=== PATIENT | male | born 1955 | race Two or more races ===

== ENCOUNTER 2017-11-20 14:21 | Inpatient (IN) | payer MEDICAID ==
[~2017-11-20] VITALS: Ht 172.7 cm; Wt 59.4 kg
[2017-11-20] MEDS ORDERED: OXYC10 PO (14:33)
[2017-11-20] MEDS ORDERED: LORA2TAB2 PO (14:33)
[2017-11-20] MEDS ORDERED: GABA-533 PO (14:33)
[2017-11-20] MEDS ORDERED: HALO2 PO (14:33)
[2017-11-20] MEDS ORDERED: ONDANSETRON HCL 4 MG/2 ML VIAL IVP PRN (14:45)
[2017-11-20] MEDS ORDERED: DEXTROSE 50%-WATER 25 GM/50 ML SYRINGE IVP PRN ×2 (14:45)
[2017-11-20] MEDS ORDERED: INSULIN ASPART 100 UNITS/ML SQ PRN (14:45)
[2017-11-20] MEDS ORDERED: 0.9% SODIUM CHLORIDE 10 ML SYRINGE IVP PRN (14:45)
[2017-11-20] MEDS ORDERED: ACETAMINOPHEN 325 MG TABLET PO PRN (14:45)
[2017-11-20 15:03] LABS: BASOPHILS % (AUTO) 0.7 % (0.0-2.0); EOSINOPHILS % (AUTO) 0.4 % (1.0-6.0); HEMOGLOBIN 10.8 g/dL (13.5-17.5); LYMPHOCYTES # (AUTO) 1.7 K/uL (1.0-4.8); LYMPHOCYTES % (AUTO) 23.3 % (22.0-44.0); MEAN CORPUSCULAR HEMOGLOBIN 24.4 pg (26.0-34.0); MEAN CORPUSCULAR HGB CONC 31.7 G/dL (31.0-37.0); MEAN CORPUSCULAR VOLUME 77 fL (80-100); MONOCYTES # (AUTO) 0.5 K/uL (0.1-1.0); MONOCYTES % (AUTO) 7.1 % (2.0-9.0); NEUTROPHILS # (AUTO) 5.1 K/uL (1.8-7.7); NEUTROPHILS % (AUTO) 68.5 % (40.0-70.0); PLATELET COUNT (AUTO) 423 K/uL (150-450); RED BLOOD CELL COUNT(AUTO) 4.43 MIL/uL (4.50-5.90); RED CELL DISTRIBUTION WIDTH 17.2 % (11.5-14.5)
[2017-11-20 15:18] LABS: ANION GAP 8 mmol/L (8-16); CALCIUM, TOTAL 8.5 mg/dL (8.8-10.5); CARBON DIOXIDE 29 mmol/L (22-29); CHLORIDE 104 mmol/L (98-107); CREATININE 0.65 mg/dL (0.60-1.30); GLOMERULAR FILTR. RATE CALC > 60 mL/min (>60); GLUCOSE,RANDOM 88 mg/dL (70-110); POTASSIUM 3.9 mmol/L (3.5-5.1); SODIUM SERUM 141 mmol/L (136-145); UREA NITROGEN, BLOOD 12 mg/dL (7-18)
[2017-11-20 15:33] LABS: ALANINE AMINOTRANSFERASE 7 U/L (12-78); ALBUMIN 3.2 g/dL (3.4-5.0); ALKALINE PHOSPHATASE 80 U/L (46-116); ASPARTATE AMINOTRANSFERASE 13 U/L (15-37); BILIRUBIN,TOTAL 0.3 mg/dL (0.1-1.0); THYROID STIMULATING HORMONE 0.24 uIU/mL (0.36-3.74); TOTAL PROTEIN, SERUM 6.5 g/dL (6.4-8.2)
[2017-11-20] MEDS ORDERED: LORazepam 2 MG/ML VIAL IM ONE (16:00)
[2017-11-20] MEDS ORDERED: HALOPERIDOL LACTATE 5 MG/ML VIAL IM ONE (16:00)
[2017-11-20 19:09] LABS: CHOL/HDL RATIO 2.4 (4.2-7.3); CHOLESTEROL 141 mg/dL (131-200); HDL CHOLESTEROL 60 mg/dL (40-60); LDL CHOL (CALC.) 68 mg/dL (0-130); TRIGLYCERIDES 66 mg/dL (15-150)
[2017-11-20 21:41] VITALS: BP 117/72
[2017-11-20] MEDS ORDERED: PNEUMOCOCCAL VACCINE POLYVALENT 0.5 ML VIAL [PPSV23] IM ONE (21:45)
[2017-11-20] MEDS ORDERED: INFLUENZA VIRUS VACCINE QVS 2017-18 (3YR+)/PF 60 MCG/0.5 ML SYRINGE IM ONE (21:45)
[2017-11-20] MEDS: LORazepam 2 MG TABLET PO PRN (22:43)
[2017-11-20] MEDS: HALOPERIDOL 5 MG TABLET PO PRN (22:43)
[2017-11-20] MEDS: ACETAMINOPHEN 325 MG TABLET PO PRN (22:43)
[2017-11-21 06:44] VITALS: BP 113/69
[2017-11-21 09:02] VITALS: BP 116/63
[2017-11-21] MEDS: LORazepam 2 MG TABLET PO PRN ×3 (09:45→20:13)
[2017-11-21] MEDS: HALOPERIDOL 5 MG TABLET PO PRN ×2 (09:46→15:11)
[2017-11-21] MEDS: ACETAMINOPHEN 325 MG TABLET PO PRN (09:46)
[2017-11-21 10:46] VITALS: BP 110/64
[2017-11-21 13:10] VITALS: BP 124/79
[2017-11-21] MEDS: TraMADol HCL 50 MG TABLET PO PRN ×2 (13:15→21:24)
[2017-11-21 14:16] VITALS: BP 128/80
[2017-11-21 16:29] VITALS: BP 111/70
[2017-11-21] MEDS: FERROUS SULFATE 325 MG EC TABLET PO SCH ×2 (17:12→20:12)
[2017-11-21] MEDS: ZOLPIDEM TARTRATE 10 MG TABLET PO PRN (20:13)
[2017-11-21] MEDS: HALOPERIDOL 5 MG TABLET PO SCH (20:13)
[2017-11-22] VITALS (7 sets, daily range): BP systolic 102–140; BP diastolic 59–86
[2017-11-22] MEDS: ACETAMINOPHEN 325 MG TABLET PO PRN ×3 (02:14→18:36)
[2017-11-22] MEDS: HALOPERIDOL 5 MG TABLET PO PRN ×4 (02:14→23:59)
[2017-11-22] MEDS: LORazepam 2 MG TABLET PO PRN ×4 (02:14→20:14)
[2017-11-22] MEDS: FERROUS SULFATE 325 MG EC TABLET PO SCH ×4 (06:32→20:14)
[2017-11-22] MEDS: TraMADol HCL 50 MG TABLET PO PRN ×3 (06:32→23:58)
[2017-11-22] MEDS: DIVALPROEX SODIUM 500 MG DR TABLET PO SCH ×2 (08:26→17:04)
[2017-11-22] MEDS: HALOPERIDOL 5 MG TABLET PO SCH (20:14)
[2017-11-22] MEDS: ZOLPIDEM TARTRATE 10 MG TABLET PO PRN (23:59)
[2017-11-23] VITALS: BP 115/83
[2017-11-23] MEDS: ACETAMINOPHEN 325 MG TABLET PO PRN ×2 (05:50→12:12)
[2017-11-23] MEDS: HALOPERIDOL 5 MG TABLET PO PRN ×3 (05:51→16:54)
[2017-11-23] MEDS: FERROUS SULFATE 325 MG EC TABLET PO SCH ×4 (06:29→20:53)
[2017-11-23 08:17] VITALS: BP 117/63
[2017-11-23] MEDS: DIVALPROEX SODIUM 500 MG DR TABLET PO SCH ×2 (08:29→16:55)
[2017-11-23] MEDS: TraMADol HCL 50 MG TABLET PO PRN ×2 (08:32→16:55)
[2017-11-23 09:36] VITALS: BP 100/69
[2017-11-23] MEDS: LORazepam 2 MG TABLET PO PRN ×3 (11:20→20:54)
[2017-11-23 12:09] VITALS: BP 122/64
[2017-11-23 13:12] VITALS: BP 114/69
[2017-11-23 16:07] VITALS: BP 120/68
[2017-11-23] MEDS: ZOLPIDEM TARTRATE 10 MG TABLET PO PRN (20:53)
[2017-11-23] MEDS: HALOPERIDOL 5 MG TABLET PO SCH (20:53)
[2017-11-24 00:10] VITALS: BP 110/80
[2017-11-24] MEDS: LORazepam 2 MG TABLET PO PRN ×4 (00:24→16:39)
[2017-11-24] MEDS: HALOPERIDOL 5 MG TABLET PO PRN ×4 (00:25→16:39)
[2017-11-24] MEDS: TraMADol HCL 50 MG TABLET PO PRN ×3 (00:25→16:39)
[2017-11-24] MEDS: FERROUS SULFATE 325 MG EC TABLET PO SCH ×4 (06:48→20:37)
[2017-11-24 08:00] VITALS: BP 121/67
[2017-11-24] MEDS: DIVALPROEX SODIUM 500 MG DR TABLET PO SCH ×2 (08:30→16:39)
[2017-11-24 09:31] VITALS: BP 122/66
[2017-11-24 13:39] VITALS: BP 127/79
[2017-11-24] MEDS: ACETAMINOPHEN 325 MG TABLET PO PRN (13:42)
[2017-11-24 14:42] VITALS: BP 120/68
[2017-11-24 16:36] VITALS: BP 129/78
[2017-11-24] MEDS: ZOLPIDEM TARTRATE 10 MG TABLET PO PRN (20:37)
[2017-11-24] MEDS: HALOPERIDOL 5 MG TABLET PO SCH (20:37)
[2017-11-25] VITALS (7 sets, daily range): BP systolic 110–116; BP diastolic 64–86
[2017-11-25] MEDS: TraMADol HCL 50 MG TABLET PO PRN ×3 (03:18→19:48)
[2017-11-25] MEDS: LORazepam 2 MG TABLET PO PRN ×4 (03:18→16:34)
[2017-11-25] MEDS: HALOPERIDOL 5 MG TABLET PO PRN ×3 (03:19→15:42)
[2017-11-25] MEDS: FERROUS SULFATE 325 MG EC TABLET PO SCH ×4 (06:38→20:00)
[2017-11-25] MEDS: DIVALPROEX SODIUM 500 MG DR TABLET PO SCH ×2 (08:29→16:05)
[2017-11-25] MEDS: ACETAMINOPHEN 325 MG TABLET PO PRN (15:41)
[2017-11-25] MEDS: HALOPERIDOL 5 MG TABLET PO SCH (20:00)
[2017-11-25] MEDS: ZOLPIDEM TARTRATE 10 MG TABLET PO PRN (20:52)
[2017-11-26] VITALS (7 sets, daily range): BP systolic 114–128; BP diastolic 75–88
[2017-11-26] MEDS: HALOPERIDOL 5 MG TABLET PO PRN ×2 (00:11→17:20)
[2017-11-26] MEDS: ACETAMINOPHEN 325 MG TABLET PO PRN ×3 (00:12→18:03)
[2017-11-26] MEDS: TraMADol HCL 50 MG TABLET PO PRN ×3 (04:58→20:56)
[2017-11-26] MEDS: LORazepam 2 MG TABLET PO PRN ×4 (04:59→18:03)
[2017-11-26] MEDS: FERROUS SULFATE 325 MG EC TABLET PO SCH ×4 (06:19→20:15)
[2017-11-26] MEDS: DIVALPROEX SODIUM 500 MG DR TABLET PO SCH ×2 (08:59→16:15)
[2017-11-26] MEDS ORDERED: MAG HYDROX/AL HYDROX/SIMETH ES 30 ML SUSPENSION UDCUP PO PRN (18:15)
[2017-11-26] MEDS: HALOPERIDOL 5 MG TABLET PO SCH (20:15)
[2017-11-26] MEDS: ZOLPIDEM TARTRATE 10 MG TABLET PO PRN (20:15)
[2017-11-27] MEDS: HALOPERIDOL 5 MG TABLET PO PRN ×3 (02:30→13:22)
[2017-11-27 05:11] VITALS: BP 108/79
[2017-11-27] MEDS: LORazepam 2 MG TABLET PO PRN ×3 (05:13→16:47)
[2017-11-27] MEDS: TraMADol HCL 50 MG TABLET PO PRN ×2 (05:13→13:22)
[2017-11-27] MEDS: FERROUS SULFATE 325 MG EC TABLET PO SCH ×3 (06:57→16:31)
[2017-11-27 08:38] VITALS: BP 110/62
[2017-11-27] MEDS: DIVALPROEX SODIUM 500 MG DR TABLET PO SCH ×2 (09:00→16:31)
[2017-11-27 13:17] VITALS: BP 118/82
[2017-11-27 14:22] VITALS: BP 112/64
[2017-11-27 15:57] VITALS: BP 112/68
[2017-11-27] MEDS: ACETAMINOPHEN 325 MG TABLET PO PRN (15:57)
[2017-11-27 16:44] VITALS: BP 107/76
[2017-11-27] MEDS ORDERED: HALO5 PO (17:17)
[2017-11-27] MEDS ORDERED: DIVA500T35 PO (17:18)
[2017-11-27] MEDS ORDERED: FERR-89 PO (17:19)
== END 2017-11-27 18:36 | disposition home or self-care (01) | DRG 750 ==
LOC: EMS 14:26 → B3A 19:41 → B2S 11-25 14:39
PROVIDERS: ADMIT Psychiatry & Neurology Psychiatry; ATTEND Psychiatry & Neurology Psychiatry
DX: F20.0 Paranoid schizophrenia (principal); R45.851 Suicidal ideations; F32.9 Major depressive disorder, single episode, unspecified; E03.9 Hypothyroidism, unspecified; D64.9 Anemia, unspecified; F12.90 Cannabis use, unspecified, uncomplicated; F17.200 Nicotine dependence, unspecified, uncomplicated; G89.29 Other chronic pain; Z28.21 Immunization not carried out because of patient refusal
CPT/HCPCS: 84443; 90471; 96372; 99285; G0480; J1630; J2060

== ENCOUNTER 2017-12-06 11:42 | Emergency (ER) | payer MEDICAID ==
[~2017-12-06] VITALS: Ht 177.8 cm; Wt 63.6 kg
[~2017-12-06 11:42] MED LIST: DIVA500T35 PO; FERR-89 PO; HALO5 PO
[2017-12-06] MEDS ORDERED: HYDROCODONE/ACETAMINOPHEN 5-325 MG TABLET PO ONE (13:00)
[2017-12-06] MEDS ORDERED: LIDOCAINE HCL 5% TRANSDERMAL PATCH TD ONE (13:00)
[2017-12-06 14:54] VITALS: BP 128/68
== END 2017-12-06 14:58 | disposition home or self-care (01) ==
LOC: EMS 11:43
DX: M54.6 Pain in thoracic spine (principal); F20.9 Schizophrenia, unspecified; Z88.0 Allergy status to penicillin; Z88.1 Allergy status to other antibiotic agents; Z88.6 Allergy status to analgesic agent; W10.9XXA Fall (on) (from) unspecified stairs and steps, initial encounter; Y93.89 Activity, other specified; Y92.89 Other specified places as the place of occurrence of the external cause; Y99.8 Other external cause status
CPT/HCPCS: 72072; 99284

== ENCOUNTER 2017-12-14 11:24 | Emergency (ER) | payer MEDICAID ==
[~2017-12-14] VITALS: Ht 177.8 cm; Wt 63.6 kg
[2017-12-14] MEDS ORDERED: GABA-531 PO (11:32)
[2017-12-14] MEDS ORDERED: BACL10TA PO (11:32)
[2017-12-14] MEDS ORDERED: ACETAMINOPHEN 500 MG TABLET PO ONE (12:45)
[2017-12-14 13:49] VITALS: BP 116/75
== END 2017-12-14 13:57 | disposition home or self-care (01) ==
LOC: EMS 11:27
DX: M54.6 Pain in thoracic spine (principal); F17.210 Nicotine dependence, cigarettes, uncomplicated; F12.90 Cannabis use, unspecified, uncomplicated; Z88.6 Allergy status to analgesic agent; Z88.0 Allergy status to penicillin; Z88.8 Allergy status to other drugs, medicaments and biological substances; W18.2XXA Fall in (into) shower or empty bathtub, initial encounter; Y93.E1 Activity, personal bathing and showering; Y92.89 Other specified places as the place of occurrence of the external cause; Y99.8 Other external cause status
CPT/HCPCS: 72128; 99284

== ENCOUNTER → 2017-12-22 | Emergency (ER) | payer MEDICAID ==
[~2017-12-22] VITALS: Ht 177.8 cm; Wt 65.9 kg
[~2017-12-22] MED LIST changes: +BACL10TA PO; -DIVA500T35 PO; -FERR-89 PO; +GABA-531 PO; -HALO5 PO
[2017-12-22 22:20] VITALS: BP 136/93
== END | disposition home or self-care (01) ==
LOC: EMS 18:22
DX: S39.92XA Unspecified injury of lower back, initial encounter (principal); F20.9 Schizophrenia, unspecified; F17.210 Nicotine dependence, cigarettes, uncomplicated; F12.90 Cannabis use, unspecified, uncomplicated; Z88.0 Allergy status to penicillin; Z88.6 Allergy status to analgesic agent; Z88.1 Allergy status to other antibiotic agents; Z88.8 Allergy status to other drugs, medicaments and biological substances; W19.XXXA Unspecified fall, initial encounter; Y93.01 Activity, walking, marching and hiking; Y92.89 Other specified places as the place of occurrence of the external cause; Y99.8 Other external cause status
CPT/HCPCS: 71100; 99284; 99406

== ENCOUNTER 2018-01-03 10:45 | Inpatient (IN) | payer MEDICAID ==
[~2018-01-03] VITALS: Ht 175.3 cm; Wt 61.7 kg
[2018-01-03] MEDS ORDERED: ACETAMINOPHEN 500 MG TABLET PO ONE (13:00)
[2018-01-03] MEDS ORDERED: HALOPERIDOL 5 MG TABLET PO ONE (13:00)
[2018-01-03 13:16] LABS: BASOPHILS % (AUTO) 0.4 % (0.0-2.0); HEMATOCRIT 41.4 % (41-53); HEMOGLOBIN 13.5 g/dL (13.5-17.5); LYMPHOCYTES # (AUTO) 1.7 K/uL (1.0-4.8); LYMPHOCYTES % (AUTO) 21.6 % (22.0-44.0); MEAN CORPUSCULAR HEMOGLOBIN 25.6 pg (26.0-34.0); MEAN CORPUSCULAR HGB CONC 32.6 G/dL (31.0-37.0); MEAN CORPUSCULAR VOLUME 79 fL (80-100); MONOCYTES # (AUTO) 0.5 K/uL (0.1-1.0); MONOCYTES % (AUTO) 6.4 % (2.0-9.0); NEUTROPHILS # (AUTO) 5.6 K/uL (1.8-7.7); NEUTROPHILS % (AUTO) 70.6 % (40.0-70.0); PLATELET COUNT (AUTO) 457 K/uL (150-450); RED BLOOD CELL COUNT(AUTO) 5.26 MIL/uL (4.50-5.90); RED CELL DISTRIBUTION WIDTH 22.9 % (11.5-14.5)
[2018-01-03 13:23] LABS: AMPHET/METH SCREEN,URINE NEGATIVE (NEGATIVE); BARBITURATE SCREEN, URINE NEGATIVE (NEGATIVE); BENZODIAZEPINES SCREEN,URINE NEGATIVE (NEGATIVE); CANNABINOID SCREEN,URINE POSITIVE (NEGATIVE); COCAINE SCREEN,URINE NEGATIVE (NEGATIVE); METHADONE SCREEN, URINE NEGATIVE (NEGATIVE); OPIATE SCREEN,URINE NEGATIVE (NEGATIVE)
[2018-01-03 13:24] LABS: PHENCYCLIDINE SCREEN,URINE NEGATIVE (NEGATIVE)
[2018-01-03 13:27] LABS: ANION GAP 7 mmol/L (8-16); CALCIUM, TOTAL 8.7 mg/dL (8.8-10.5); CARBON DIOXIDE 31 mmol/L (22-29); CHLORIDE 105 mmol/L (98-107); CREATININE 0.85 mg/dL (0.60-1.30); GLOMERULAR FILTR. RATE CALC > 60 mL/min (>60); GLUCOSE,RANDOM 124 mg/dL (70-110); POTASSIUM 3.7 mmol/L (3.5-5.1); SODIUM SERUM 143 mmol/L (136-145); UREA NITROGEN, BLOOD 14 mg/dL (7-18)
[2018-01-03 13:33] LABS: ALANINE AMINOTRANSFERASE 9 U/L (12-78); ALBUMIN 3.5 g/dL (3.4-5.0); ALKALINE PHOSPHATASE 77 U/L (46-116); ASPARTATE AMINOTRANSFERASE 10 U/L (15-37); BILIRUBIN,TOTAL 0.3 mg/dL (0.1-1.0)
[2018-01-03] MEDS: LORazepam 2 MG TABLET PO PRN ×2 (14:53→20:19)
[2018-01-03 16:50] VITALS: BP 141/77
[2018-01-03] MEDS: DIVALPROEX SODIUM 500 MG DR TABLET PO SCH (16:56)
[2018-01-03 16:57] VITALS: BP 141/77
[2018-01-03] MEDS ORDERED: ACETAMINOPHEN 325 MG TABLET PO PRN (17:00)
[2018-01-03] MEDS: HALOPERIDOL 5 MG TABLET PO PRN (17:12)
[2018-01-03] MEDS: TraMADol HCL 50 MG TABLET PO PRN (17:39)
[2018-01-03] MEDS: HALOPERIDOL 5 MG TABLET PO SCH (20:19)
[2018-01-03] MEDS: BACLOFEN 10 MG TABLET PO SCH (21:29)
[2018-01-03] MEDS: ACETAMINOPHEN 325 MG TABLET PO PRN (22:59)
[2018-01-04] VITALS (7 sets, daily range): BP systolic 110–124; BP diastolic 76–80
[2018-01-04] MEDS: LORazepam 2 MG TABLET PO PRN ×4 (01:04→17:40)
[2018-01-04] MEDS: HALOPERIDOL 5 MG TABLET PO PRN ×3 (01:05→13:39)
[2018-01-04] MEDS: TraMADol HCL 50 MG TABLET PO PRN ×3 (03:05→20:10)
[2018-01-04 07:52] LABS: HEMOGLOBIN A1C 5.5 % (4.5-6.2)
[2018-01-04 08:10] LABS: CHOL/HDL RATIO 2.1 (4.2-7.3); THYROID STIMULATING HORMONE 1.92 uIU/mL (0.36-3.74)
[2018-01-04] MEDS: DIVALPROEX SODIUM 500 MG DR TABLET PO SCH ×2 (08:51→16:22)
[2018-01-04] MEDS: BACLOFEN 10 MG TABLET PO SCH ×3 (08:51→16:22)
[2018-01-04] MEDS: NICOTINE 21 MG/24 HOUR PATCH TD SCH (08:56)
[2018-01-04] MEDS: RisperiDONE 1 MG TABLET PO SCH (16:23)
[2018-01-04] MEDS: HALOPERIDOL 5 MG TABLET PO SCH (20:10)
[2018-01-05] VITALS (7 sets, daily range): BP systolic 111–120; BP diastolic 64–88
[2018-01-05] MEDS: ZOLPIDEM TARTRATE 10 MG TABLET PO PRN (00:28)
[2018-01-05] MEDS: HALOPERIDOL 5 MG TABLET PO PRN ×3 (00:28→14:49)
[2018-01-05] MEDS: TraMADol HCL 50 MG TABLET PO PRN ×3 (04:10→21:27)
[2018-01-05] MEDS: LORazepam 2 MG TABLET PO PRN ×4 (05:55→20:24)
[2018-01-05] MEDS: ACETAMINOPHEN 325 MG TABLET PO PRN ×2 (05:55→15:55)
[2018-01-05] MEDS: BACLOFEN 10 MG TABLET PO SCH ×3 (08:10→16:16)
[2018-01-05] MEDS: DIVALPROEX SODIUM 500 MG DR TABLET PO SCH ×2 (08:10→16:16)
[2018-01-05] MEDS: RisperiDONE 1 MG TABLET PO SCH ×2 (08:10→16:16)
[2018-01-05] MEDS: NICOTINE 21 MG/24 HOUR PATCH TD SCH (08:10)
[2018-01-05] MEDS: HALOPERIDOL 5 MG TABLET PO SCH (20:15)
[2018-01-06 02:05] VITALS: BP 122/80
[2018-01-06] MEDS: ZOLPIDEM TARTRATE 10 MG TABLET PO PRN ×2 (02:07→20:16)
[2018-01-06] MEDS: HALOPERIDOL 5 MG TABLET PO PRN ×3 (05:15→17:24)
[2018-01-06] MEDS: TraMADol HCL 50 MG TABLET PO PRN ×2 (05:37→15:29)
[2018-01-06] MEDS: BACLOFEN 10 MG TABLET PO SCH ×4 (08:44→16:47)
[2018-01-06] MEDS: DIVALPROEX SODIUM 500 MG DR TABLET PO SCH ×3 (08:44→16:46)
[2018-01-06] MEDS: RisperiDONE 1 MG TABLET PO SCH ×3 (08:44→16:47)
[2018-01-06] MEDS: NICOTINE 21 MG/24 HOUR PATCH TD SCH (08:44)
[2018-01-06] MEDS: LORazepam 2 MG TABLET PO PRN ×3 (08:44→18:03)
[2018-01-06 08:53] VITALS: BP 117/77
[2018-01-06 16:13] VITALS: BP 117/84
[2018-01-06] MEDS: HALOPERIDOL 5 MG TABLET PO SCH (20:16)
[2018-01-07 00:27] VITALS: BP 128/90
[2018-01-07] MEDS: HALOPERIDOL 5 MG TABLET PO PRN ×4 (00:35→17:52)
[2018-01-07] MEDS: LORazepam 2 MG TABLET PO PRN ×5 (00:35→21:26)
[2018-01-07 06:05] VITALS: BP 120/81
[2018-01-07] MEDS: TraMADol HCL 50 MG TABLET PO PRN ×2 (06:10→15:42)
[2018-01-07 07:03] LABS: GLUCOMETER DEV NAME(LOC) BV2N3; GLUCOSE,POINT OF CARE 260 MG/DL (70-110)
[2018-01-07] MEDS: BACLOFEN 10 MG TABLET PO SCH ×3 (08:06→16:12)
[2018-01-07] MEDS: NICOTINE 21 MG/24 HOUR PATCH TD SCH (08:07)
[2018-01-07] MEDS: DIVALPROEX SODIUM 500 MG DR TABLET PO SCH ×2 (08:07→16:11)
[2018-01-07] MEDS: RisperiDONE 1 MG TABLET PO SCH ×2 (08:07→16:11)
[2018-01-07 08:25] VITALS: BP 124/81
[2018-01-07 13:20] VITALS: BP 110/81
[2018-01-07 16:12] VITALS: BP 118/88
[2018-01-07] MEDS: HALOPERIDOL 5 MG TABLET PO SCH (20:22)
[2018-01-08 00:07] VITALS: BP 120/81
[2018-01-08] MEDS: ZOLPIDEM TARTRATE 10 MG TABLET PO PRN ×2 (00:07→20:58)
[2018-01-08 07:08] VITALS: BP 128/82
[2018-01-08] MEDS: TraMADol HCL 50 MG TABLET PO PRN (07:09)
[2018-01-08 08:29] VITALS: BP 110/76
[2018-01-08] MEDS: RisperiDONE 1 MG TABLET PO SCH ×2 (08:34→17:02)
[2018-01-08] MEDS: DIVALPROEX SODIUM 500 MG DR TABLET PO SCH ×2 (08:34→17:02)
[2018-01-08] MEDS: LORazepam 2 MG TABLET PO PRN ×3 (08:34→17:33)
[2018-01-08] MEDS: BACLOFEN 10 MG TABLET PO SCH ×3 (08:36→17:02)
[2018-01-08] MEDS: NICOTINE 21 MG/24 HOUR PATCH TD SCH (08:36)
[2018-01-08 16:37] VITALS: BP 120/81
[2018-01-08] MEDS: HALOPERIDOL 5 MG TABLET PO PRN (17:02)
[2018-01-08] MEDS: HALOPERIDOL 5 MG TABLET PO SCH (20:58)
[2018-01-09 01:46] VITALS: BP 113/78
[2018-01-09] MEDS: LORazepam 2 MG TABLET PO PRN ×4 (01:47→17:27)
[2018-01-09] MEDS: HALOPERIDOL 5 MG TABLET PO PRN ×4 (01:47→17:27)
[2018-01-09 05:57] VITALS: BP 107/79
[2018-01-09] MEDS: TraMADol HCL 50 MG TABLET PO PRN ×2 (06:00→14:15)
[2018-01-09 08:21] VITALS: BP 100/60
[2018-01-09] MEDS: BACLOFEN 10 MG TABLET PO SCH ×3 (08:38→16:09)
[2018-01-09] MEDS: DIVALPROEX SODIUM 500 MG DR TABLET PO SCH ×2 (08:38→16:09)
[2018-01-09] MEDS: RisperiDONE 1 MG TABLET PO SCH ×2 (08:38→16:09)
[2018-01-09] MEDS: NICOTINE 21 MG/24 HOUR PATCH TD SCH (08:38)
[2018-01-09 14:17] VITALS: BP 107/74
[2018-01-09 16:26] VITALS: BP 110/66
[2018-01-09] MEDS: ZOLPIDEM TARTRATE 10 MG TABLET PO PRN (20:06)
[2018-01-09] MEDS: HALOPERIDOL 5 MG TABLET PO SCH (20:06)
[2018-01-10 06:51] VITALS: BP 117/77
[2018-01-10] MEDS: DIVALPROEX SODIUM 500 MG DR TABLET PO SCH (08:06)
[2018-01-10] MEDS: NICOTINE 21 MG/24 HOUR PATCH TD SCH (08:06)
[2018-01-10 08:07] VITALS: BP 114/82
[2018-01-10] MEDS: BACLOFEN 10 MG TABLET PO SCH ×2 (08:07→12:21)
[2018-01-10] MEDS: RisperiDONE 1 MG TABLET PO SCH (08:07)
[2018-01-10] MEDS: HALOPERIDOL 5 MG TABLET PO PRN (08:29)
[2018-01-10] MEDS: LORazepam 2 MG TABLET PO PRN (08:29)
[2018-01-10] MEDS ORDERED: DIVA500T35 PO (08:30)
[2018-01-10] MEDS ORDERED: RISP1 PO (08:31)
[2018-01-10] MEDS ORDERED: HALO5 PO (08:32)
[2018-01-10 10:20] VITALS: BP 115/80
[2018-01-10] MEDS: TraMADol HCL 50 MG TABLET PO PRN (10:22)
== END 2018-01-10 13:25 | disposition home or self-care (01) | DRG 750 ==
LOC: EMS 10:46 → B2S 15:52
PROVIDERS: ADMIT Psychiatry & Neurology Psychiatry; ATTEND Psychiatry & Neurology Psychiatry
DX: F25.9 Schizoaffective disorder, unspecified (principal); R45.851 Suicidal ideations; G89.29 Other chronic pain; M54.9 Dorsalgia, unspecified; R73.9 Hyperglycemia, unspecified; F12.90 Cannabis use, unspecified, uncomplicated; F17.200 Nicotine dependence, unspecified, uncomplicated; Z88.1 Allergy status to other antibiotic agents; Z88.0 Allergy status to penicillin; Z88.8 Allergy status to other drugs, medicaments and biological substances; Z79.899 Other long term (current) drug therapy; Z71.51 Drug abuse counseling and surveillance of drug abuser
CPT/HCPCS: 82962; 83036; 84443; 99285; G0480

== ENCOUNTER 2018-01-16 08:51 | Inpatient (IN) | payer MEDICAID ==
[~2018-01-16] VITALS: Ht 317.5 cm; Wt 62.3 kg
[~2018-01-16 08:51] MED LIST changes: +DIVA500T35 PO; -GABA-531 PO; +HALO5 PO; +RISP1 PO
[2018-01-16] MEDS ORDERED: CYCLOBENZAPRINE HCL 10 MG TABLET PO ONE (10:45)
[2018-01-16] MEDS ORDERED: HALOPERIDOL 5 MG TABLET PO ONE (11:00)
[2018-01-16] MEDS ORDERED: DiphenhydrAMINE HCL 25 MG CAPSULE PO ONE (11:00)
[2018-01-16] MEDS ORDERED: LORazepam 2 MG TABLET PO ONE (11:00)
[2018-01-16 11:14] LABS: BASOPHILS % (AUTO) 0.5 % (0.0-2.0); EOSINOPHILS % (AUTO) 1.6 % (1.0-6.0); HEMATOCRIT 39.2 % (41-53); HEMOGLOBIN 12.7 g/dL (13.5-17.5); LYMPHOCYTES # (AUTO) 1.7 K/uL (1.0-4.8); LYMPHOCYTES % (AUTO) 27.4 % (22.0-44.0); MEAN CORPUSCULAR HEMOGLOBIN 25.7 pg (26.0-34.0); MEAN CORPUSCULAR HGB CONC 32.4 G/dL (31.0-37.0); MEAN CORPUSCULAR VOLUME 79 fL (80-100); MONOCYTES # (AUTO) 0.5 K/uL (0.1-1.0); MONOCYTES % (AUTO) 7.7 % (2.0-9.0); NEUTROPHILS % (AUTO) 62.8 % (40.0-70.0); PLATELET COUNT (AUTO) 274 K/uL (150-450); RED BLOOD CELL COUNT(AUTO) 4.93 MIL/uL (4.50-5.90); RED CELL DISTRIBUTION WIDTH 23.9 % (11.5-14.5)
[2018-01-16] MEDS: ACETAMINOPHEN 500 MG TABLET PO ONE ×2 (11:34→11:51)
[2018-01-16 11:35] LABS: ANION GAP 3 mmol/L (8-16); CALCIUM, TOTAL 8.9 mg/dL (8.8-10.5); CARBON DIOXIDE 32 mmol/L (22-29); CHLORIDE 104 mmol/L (98-107); CREATININE 0.81 mg/dL (0.60-1.30); GLOMERULAR FILTR. RATE CALC > 60 mL/min (>60); GLUCOSE,RANDOM 80 mg/dL (70-110); POTASSIUM 4.4 mmol/L (3.5-5.1); SODIUM SERUM 139 mmol/L (136-145); UREA NITROGEN, BLOOD 14 mg/dL (7-18)
[2018-01-16 11:40] LABS: ALANINE AMINOTRANSFERASE 9 U/L (12-78); ALBUMIN 3.3 g/dL (3.4-5.0); ASPARTATE AMINOTRANSFERASE 11 U/L (15-37); BILIRUBIN,TOTAL 0.2 mg/dL (0.1-1.0); TOTAL PROTEIN, SERUM 6.6 g/dL (6.4-8.2); VALPROIC ACID 7 mcg/mL (50-100)
[2018-01-16 12:05] LABS: AMPHET/METH SCREEN,URINE NEGATIVE (NEGATIVE); BARBITURATE SCREEN, URINE NEGATIVE (NEGATIVE); BENZODIAZEPINES SCREEN,URINE NEGATIVE (NEGATIVE); CANNABINOID SCREEN,URINE NEGATIVE (NEGATIVE); COCAINE SCREEN,URINE NEGATIVE (NEGATIVE); METHADONE SCREEN, URINE NEGATIVE (NEGATIVE); OPIATE SCREEN,URINE NEGATIVE (NEGATIVE)
[2018-01-16 12:06] LABS: PHENCYCLIDINE SCREEN,URINE NEGATIVE (NEGATIVE)
[2018-01-16 12:22] LABS: APPEARANCE,URINE CLEAR (CLEAR); BILIRUBIN,URINE NEGATIVE (NEGATIVE); GLUCOSE, URINE (UA) NEGATIVE (NEGATIVE); KETONES,URINE NEGATIVE (NEGATIVE); LEUKOCYTE ESTERASE ,URINE NEGATIVE (NEGATIVE); NITRATE,URINE NEGATIVE (NEGATIVE); OCCULT BLOOD,URINE NEGATIVE (NEGATIVE); PH,URINE 7.5 (5.0-8.0); PROTEIN,URINE NEGATIVE (NEGATIVE); UROBILINOGEN,URINE 0.2 mg/dL (<=1.0)
[2018-01-16 13:43] LABS: ALKALINE PHOSPHATASE 66 U/L (46-116)
[2018-01-16] MEDS ORDERED: ACETAMINOPHEN 325 MG TABLET PO PRN (14:15)
[2018-01-16] MEDS: TraMADol HCL 50 MG TABLET PO PRN (14:46)
[2018-01-16 14:47] VITALS: BP 123/79
[2018-01-16] MEDS: BACLOFEN 10 MG TABLET PO SCH (16:06)
[2018-01-16 16:23] VITALS: BP 125/86
[2018-01-16] MEDS: LORazepam 2 MG TABLET PO PRN (16:33)
[2018-01-16] MEDS: HALOPERIDOL 5 MG TABLET PO PRN (18:19)
[2018-01-16] MEDS: ACETAMINOPHEN 325 MG TABLET PO PRN (19:42)
[2018-01-16] MEDS: ZOLPIDEM TARTRATE 10 MG TABLET PO PRN (20:48)
[2018-01-17 00:28] VITALS: BP 113/91
[2018-01-17] MEDS: LORazepam 2 MG TABLET PO PRN ×4 (01:08→18:00)
[2018-01-17] MEDS: BACLOFEN 10 MG TABLET PO SCH ×3 (08:12→16:59)
[2018-01-17 08:38] LABS: HEMOGLOBIN A1C 5.7 % (4.5-6.2)
[2018-01-17 08:41] LABS: CHOL/HDL RATIO 2.1 (4.2-7.3)
[2018-01-17 08:45] VITALS: BP 119/79
[2018-01-17 08:59] VITALS: BP 119/79
[2018-01-17] MEDS: DIVALPROEX SODIUM 500 MG ER TABLET PO SCH ×2 (10:40→16:58)
[2018-01-17] MEDS: RisperiDONE 1 MG TABLET PO SCH ×2 (10:40→16:59)
[2018-01-17 10:58] VITALS: BP 123/81
[2018-01-17] MEDS: TraMADol HCL 50 MG TABLET PO PRN (10:58)
[2018-01-17 13:39] VITALS: BP 123/79
[2018-01-17 16:12] VITALS: BP 122/84
[2018-01-17] MEDS: ACETAMINOPHEN 325 MG TABLET PO PRN (16:12)
[2018-01-17] MEDS: HALOPERIDOL 5 MG TABLET PO SCH (20:09)
[2018-01-17] MEDS ORDERED: RisperiDONE MICROSPHERES 25 MG/2 ML SYRINGE IM SCH (21:00)
[2018-01-18] VITALS (12 sets, daily range): BP systolic 113–128; BP diastolic 62–95
[2018-01-18] MEDS: LORazepam 2 MG TABLET PO PRN ×4 (03:06→18:25)
[2018-01-18] MEDS: TraMADol HCL 50 MG TABLET PO PRN ×2 (06:32→16:18)
[2018-01-18] MEDS: BACLOFEN 10 MG TABLET PO SCH ×3 (08:36→16:04)
[2018-01-18] MEDS: DIVALPROEX SODIUM 500 MG ER TABLET PO SCH ×2 (08:36→16:03)
[2018-01-18] MEDS: RisperiDONE 1 MG TABLET PO SCH ×2 (08:36→16:03)
[2018-01-18] MEDS: ACETAMINOPHEN 325 MG TABLET PO PRN (18:50)
[2018-01-18] MEDS: HALOPERIDOL 5 MG TABLET PO SCH (20:51)
[2018-01-18] MEDS: ZOLPIDEM TARTRATE 10 MG TABLET PO PRN (21:00)
[2018-01-19 03:50] VITALS: BP 135/89
[2018-01-19] MEDS: LORazepam 2 MG TABLET PO PRN ×2 (03:52→08:52)
[2018-01-19] MEDS: DIVALPROEX SODIUM 500 MG ER TABLET PO SCH (08:17)
[2018-01-19] MEDS: BACLOFEN 10 MG TABLET PO SCH ×2 (08:17→12:54)
[2018-01-19] MEDS: HALOPERIDOL 5 MG TABLET PO PRN (08:17)
[2018-01-19] MEDS: RisperiDONE 1 MG TABLET PO SCH (08:17)
[2018-01-19 08:36] VITALS: BP 125/84
[2018-01-19] MEDS ORDERED: NICOTINE 21 MG/24 HOUR PATCH TD SCH (09:00)
[2018-01-19] MEDS: TraMADol HCL 50 MG TABLET PO PRN (10:25)
[2018-01-19] MEDS ORDERED: DIVA500T52 PO (12:53)
[2018-01-19] MEDS ORDERED: MUPIROCIN CALCIUM 2% 15 GM CREAM TP SCH (17:00)
== END 2018-01-19 13:30 | disposition home or self-care (01) | DRG 750 ==
LOC: EMS 08:52 → B2S 10:51
PROVIDERS: ADMIT Psychiatry & Neurology Psychiatry; ATTEND Psychiatry & Neurology Psychiatry
DX: F25.9 Schizoaffective disorder, unspecified (principal); R45.851 Suicidal ideations; G89.29 Other chronic pain; F32.9 Major depressive disorder, single episode, unspecified; D64.9 Anemia, unspecified; F41.9 Anxiety disorder, unspecified; M54.2 Cervicalgia; M54.9 Dorsalgia, unspecified; F19.10 Other psychoactive substance abuse, uncomplicated; F12.90 Cannabis use, unspecified, uncomplicated; F17.210 Nicotine dependence, cigarettes, uncomplicated; Z88.0 Allergy status to penicillin; Z88.6 Allergy status to analgesic agent; Z88.1 Allergy status to other antibiotic agents; Z88.8 Allergy status to other drugs, medicaments and biological substances; Z71.51 Drug abuse counseling and surveillance of drug abuser; Z71.6 Tobacco abuse counseling
CPT/HCPCS: 83036; 87081; 99285; G0480; J2794

== ENCOUNTER 2018-01-26 16:52 | Inpatient (IN) | payer MEDICAID, OTHER ==
[~2018-01-26] VITALS: Ht 177.8 cm; Wt 65.0 kg
[~2018-01-26 16:52] MED LIST changes: -DIVA500T35 PO; +DIVA500T52 PO; -HALO5 PO; +HALO5TAB2 PO
[2018-01-26 18:39] LABS: BASOPHILS % (AUTO) 0.4 % (0.0-2.0); EOSINOPHILS % (AUTO) 0.6 % (1.0-6.0); HEMATOCRIT 35.1 % (41-53); HEMOGLOBIN 11.8 g/dL (13.5-17.5); LYMPHOCYTES % (AUTO) 21.5 % (22.0-44.0); MEAN CORPUSCULAR HEMOGLOBIN 26.4 pg (26.0-34.0); MEAN CORPUSCULAR HGB CONC 33.5 G/dL (31.0-37.0); MEAN CORPUSCULAR VOLUME 79 fL (80-100); MONOCYTES # (AUTO) 0.7 K/uL (0.1-1.0); MONOCYTES % (AUTO) 7.2 % (2.0-9.0); NEUTROPHILS # (AUTO) 6.7 K/uL (1.8-7.7); NEUTROPHILS % (AUTO) 70.3 % (40.0-70.0); PLATELET COUNT (AUTO) 358 K/uL (150-450); RED BLOOD CELL COUNT(AUTO) 4.45 MIL/uL (4.50-5.90)
[2018-01-26 18:47] LABS: ANION GAP 5 mmol/L (8-16); CALCIUM, TOTAL 8.5 mg/dL (8.8-10.5); CARBON DIOXIDE 31 mmol/L (22-29); CHLORIDE 103 mmol/L (98-107); CREATININE 0.84 mg/dL (0.60-1.30); GLOMERULAR FILTR. RATE CALC > 60 mL/min (>60); GLUCOSE,RANDOM 83 mg/dL (70-110); POTASSIUM 4.4 mmol/L (3.5-5.1); SODIUM SERUM 139 mmol/L (136-145); UREA NITROGEN, BLOOD 12 mg/dL (7-18)
[2018-01-26 18:54] LABS: ALANINE AMINOTRANSFERASE 11 U/L (12-78); ALBUMIN 3.6 g/dL (3.4-5.0); ALKALINE PHOSPHATASE 68 U/L (46-116); ASPARTATE AMINOTRANSFERASE 7 U/L (15-37); BILIRUBIN,TOTAL 0.3 mg/dL (0.1-1.0); TOTAL PROTEIN, SERUM 6.6 g/dL (6.4-8.2)
[2018-01-26 19:47] LABS: AMPHET/METH SCREEN,URINE NEGATIVE (NEGATIVE); BARBITURATE SCREEN, URINE NEGATIVE (NEGATIVE); BENZODIAZEPINES SCREEN,URINE NEGATIVE (NEGATIVE); CANNABINOID SCREEN,URINE NEGATIVE (NEGATIVE); COCAINE SCREEN,URINE NEGATIVE (NEGATIVE); METHADONE SCREEN, URINE NEGATIVE (NEGATIVE); OPIATE SCREEN,URINE NEGATIVE (NEGATIVE)
[2018-01-26 19:51] LABS: PHENCYCLIDINE SCREEN,URINE NEGATIVE (NEGATIVE)
[2018-01-26 21:40] LABS: APPEARANCE,URINE CLEAR (CLEAR); BILIRUBIN,URINE NEGATIVE (NEGATIVE); GLUCOSE, URINE (UA) NEGATIVE (NEGATIVE); KETONES,URINE NEGATIVE (NEGATIVE); LEUKOCYTE ESTERASE ,URINE NEGATIVE (NEGATIVE); NITRATE,URINE NEGATIVE (NEGATIVE); OCCULT BLOOD,URINE NEGATIVE (NEGATIVE); PH,URINE 7.5 (5.0-8.0); PROTEIN,URINE NEGATIVE (NEGATIVE); UROBILINOGEN,URINE 0.2 mg/dL (<=1.0)
[2018-01-26] MEDS: HALOPERIDOL 5 MG TABLET PO PRN (22:01)
[2018-01-26] MEDS: LORazepam 2 MG TABLET PO PRN (22:01)
[2018-01-26] MEDS: ZOLPIDEM TARTRATE 10 MG TABLET PO PRN (22:40)
[2018-01-26 23:01] VITALS: BP 129/90
[2018-01-27] MEDS: LORazepam 2 MG TABLET PO PRN ×4 (02:14→16:34)
[2018-01-27 02:15] VITALS: BP 147/98
[2018-01-27 04:52] VITALS: BP 149/87
[2018-01-27] MEDS ORDERED: ACETAMINOPHEN 325 MG TABLET PO PRN ×2 (10:00→14:00)
[2018-01-27 10:13] VITALS: BP 131/89
[2018-01-27] MEDS: HALOPERIDOL 5 MG TABLET PO PRN ×2 (11:20→16:34)
[2018-01-27] MEDS: BACLOFEN 10 MG TABLET PO SCH ×2 (13:02→16:24)
[2018-01-27 13:06] VITALS: BP 142/77
[2018-01-27] MEDS: TraMADol HCL 50 MG TABLET PO PRN (13:06)
[2018-01-27 14:06] VITALS: BP 118/89
[2018-01-27] MEDS ORDERED: NICOTINE 14 MG/24 HOUR PATCH TD ONE (15:15)
[2018-01-27 17:24] VITALS: BP 125/97
[2018-01-27] MEDS: FERROUS SULFATE 325 MG EC TABLET PO SCH (17:52)
[2018-01-27] MEDS: ZOLPIDEM TARTRATE 10 MG TABLET PO PRN (22:06)
[2018-01-28 04:00] VITALS: BP 126/84
[2018-01-28] MEDS: LORazepam 2 MG TABLET PO PRN ×4 (04:13→18:24)
[2018-01-28] MEDS: HALOPERIDOL 5 MG TABLET PO PRN ×2 (04:13→09:05)
[2018-01-28] MEDS: FERROUS SULFATE 325 MG EC TABLET PO SCH ×2 (07:16→16:54)
[2018-01-28 08:05] VITALS: BP 128/77
[2018-01-28] MEDS: BACLOFEN 10 MG TABLET PO SCH ×3 (09:54→16:16)
[2018-01-28] MEDS: DIVALPROEX SODIUM 500 MG ER TABLET PO SCH ×2 (09:54→16:16)
[2018-01-28] MEDS: NICOTINE 14 MG/24 HOUR PATCH TD SCH (09:56)
[2018-01-28 15:00] VITALS: BP 121/71
[2018-01-28] MEDS: TraMADol HCL 50 MG TABLET PO PRN (15:04)
[2018-01-28 16:00] VITALS: BP 127/80
[2018-01-28] MEDS: MUPIROCIN CALCIUM 2% 15 GM CREAM TP SCH (16:18)
[2018-01-28 17:07] VITALS: BP 150/98
[2018-01-28] MEDS: ZOLPIDEM TARTRATE 10 MG TABLET PO PRN (20:30)
[2018-01-29 00:30] VITALS: BP 135/90
[2018-01-29] MEDS: HALOPERIDOL 5 MG TABLET PO PRN ×2 (00:40→16:53)
[2018-01-29] MEDS: LORazepam 2 MG TABLET PO PRN ×4 (05:15→18:16)
[2018-01-29 06:15] VITALS: BP 139/97
[2018-01-29] MEDS: TraMADol HCL 50 MG TABLET PO PRN ×2 (06:21→17:00)
[2018-01-29] MEDS: FERROUS SULFATE 325 MG EC TABLET PO SCH ×2 (07:01→16:53)
[2018-01-29 08:05] VITALS: BP 139/90
[2018-01-29] MEDS: BACLOFEN 10 MG TABLET PO SCH ×3 (08:51→16:53)
[2018-01-29] MEDS: DIVALPROEX SODIUM 500 MG ER TABLET PO SCH ×2 (08:51→16:52)
[2018-01-29] MEDS: NICOTINE 14 MG/24 HOUR PATCH TD SCH (08:53)
[2018-01-29] MEDS: MUPIROCIN CALCIUM 2% 15 GM CREAM TP SCH ×2 (12:16→16:53)
[2018-01-29 16:58] VITALS: BP 127/89
[2018-01-29] MEDS: ZOLPIDEM TARTRATE 10 MG TABLET PO PRN (20:57)
[2018-01-30 03:45] VITALS: BP 117/98
[2018-01-30] MEDS: TraMADol HCL 50 MG TABLET PO PRN (03:52)
[2018-01-30] MEDS: FERROUS SULFATE 325 MG EC TABLET PO SCH (06:54)
[2018-01-30] MEDS: LORazepam 2 MG TABLET PO PRN (07:25)
[2018-01-30 08:00] VITALS: BP 137/76
[2018-01-30] MEDS: BACLOFEN 10 MG TABLET PO SCH ×2 (08:43→13:38)
[2018-01-30] MEDS: DIVALPROEX SODIUM 500 MG ER TABLET PO SCH (08:44)
[2018-01-30] MEDS: NICOTINE 14 MG/24 HOUR PATCH TD SCH (08:45)
[2018-01-30] MEDS: MUPIROCIN CALCIUM 2% 15 GM CREAM TP SCH (08:56)
[2018-01-30] MEDS ORDERED: RISPC25 IM (09:10)
[2018-01-30] MEDS ORDERED: FERR325T22 PO (09:21)
[2018-01-30] MEDS ORDERED: FERR-89 PO (09:22)
[2018-02-01] MEDS ORDERED: RisperiDONE MICROSPHERES 25 MG/2 ML SYRINGE IM SCH (09:00)
== END 2018-01-30 14:41 | disposition home or self-care (01) | DRG 750 ==
LOC: EMS 16:55 → 3EI 21:31
PROVIDERS: ADMIT Psychiatry & Neurology Psychiatry; ATTEND Psychiatry & Neurology Psychiatry
DX: F25.9 Schizoaffective disorder, unspecified (principal); R45.851 Suicidal ideations; D64.9 Anemia, unspecified; F17.200 Nicotine dependence, unspecified, uncomplicated; M54.9 Dorsalgia, unspecified; F12.90 Cannabis use, unspecified, uncomplicated; G89.29 Other chronic pain; Z88.1 Allergy status to other antibiotic agents; Z88.0 Allergy status to penicillin; Z88.8 Allergy status to other drugs, medicaments and biological substances
CPT/HCPCS: 83036; 87081; 99285; G0480

== ENCOUNTER 2018-02-03 11:27 | Inpatient (IN) | payer MEDICAID, OTHER ==
[~2018-02-03] VITALS: Ht 175.3 cm; Wt 64.5 kg
[~2018-02-03 11:27] MED LIST changes: +FERR-89 PO; -HALO5TAB2 PO; -RISP1 PO; +RISPC25 IM
[2018-02-03 16:45] LABS: BASOPHILS % (AUTO) 0.4 % (0.0-2.0); EOSINOPHILS % (AUTO) 0.6 % (1.0-6.0); HEMATOCRIT 38.7 % (41-53); HEMOGLOBIN 12.7 g/dL (13.5-17.5); LYMPHOCYTES # (AUTO) 1.9 K/uL (1.0-4.8); LYMPHOCYTES % (AUTO) 24.4 % (22.0-44.0); MEAN CORPUSCULAR HEMOGLOBIN 26.8 pg (26.0-34.0); MEAN CORPUSCULAR HGB CONC 32.9 G/dL (31.0-37.0); MEAN CORPUSCULAR VOLUME 81 fL (80-100); MONOCYTES # (AUTO) 0.6 K/uL (0.1-1.0); MONOCYTES % (AUTO) 7.5 % (2.0-9.0); NEUTROPHILS # (AUTO) 5.1 K/uL (1.8-7.7); NEUTROPHILS % (AUTO) 67.1 % (40.0-70.0); PLATELET COUNT (AUTO) 347 K/uL (150-450); RED BLOOD CELL COUNT(AUTO) 4.75 MIL/uL (4.50-5.90); RED CELL DISTRIBUTION WIDTH 24.6 % (11.5-14.5)
[2018-02-03 17:08] LABS: ANION GAP 8 mmol/L (8-16); CALCIUM, TOTAL 8.5 mg/dL (8.8-10.5); CARBON DIOXIDE 29 mmol/L (22-29); CHLORIDE 105 mmol/L (98-107); CREATININE 0.76 mg/dL (0.60-1.30); GLOMERULAR FILTR. RATE CALC > 60 mL/min (>60); GLUCOSE,RANDOM 111 mg/dL (70-110); POTASSIUM 4.2 mmol/L (3.5-5.1); SODIUM SERUM 142 mmol/L (136-145); UREA NITROGEN, BLOOD 15 mg/dL (7-18)
[2018-02-03 17:10] LABS: AMPHET/METH SCREEN,URINE NEGATIVE (NEGATIVE); BARBITURATE SCREEN, URINE NEGATIVE (NEGATIVE); BENZODIAZEPINES SCREEN,URINE NEGATIVE (NEGATIVE); CANNABINOID SCREEN,URINE NEGATIVE (NEGATIVE); COCAINE SCREEN,URINE NEGATIVE (NEGATIVE); METHADONE SCREEN, URINE NEGATIVE (NEGATIVE); OPIATE SCREEN,URINE NEGATIVE (NEGATIVE)
[2018-02-03 17:17] LABS: ALANINE AMINOTRANSFERASE 11 U/L (12-78); ALBUMIN 3.5 g/dL (3.4-5.0); ALKALINE PHOSPHATASE 68 U/L (46-116); ASPARTATE AMINOTRANSFERASE 14 U/L (15-37); BILIRUBIN,TOTAL 0.2 mg/dL (0.1-1.0); TOTAL PROTEIN, SERUM 6.7 g/dL (6.4-8.2)
[2018-02-03 17:21] LABS: PHENCYCLIDINE SCREEN,URINE NEGATIVE (NEGATIVE)
[2018-02-03] MEDS ORDERED: HALOPERIDOL 5 MG TABLET PO ONE (19:30)
[2018-02-03] MEDS ORDERED: LORazepam 2 MG TABLET PO ONE (19:30)
[2018-02-03] MEDS ORDERED: ACETAMINOPHEN 325 MG TABLET PO ONE (19:45)
[2018-02-03] MEDS ORDERED: METHOCARBAMOL 500 MG TABLET PO ONE (20:30)
[2018-02-03 22:12] VITALS: BP 125/73
[2018-02-03 22:29] VITALS: BP 124/87
[2018-02-04 00:20] VITALS: BP 139/90
[2018-02-04] MEDS: LORazepam 2 MG TABLET PO PRN ×4 (00:28→14:17)
[2018-02-04 01:20] VITALS: BP 134/72
[2018-02-04] MEDS: ACETAMINOPHEN 325 MG TABLET PO PRN (01:28)
[2018-02-04 05:00] VITALS: BP 131/90
[2018-02-04] MEDS: HALOPERIDOL 5 MG TABLET PO PRN ×3 (05:06→14:17)
[2018-02-04 07:12] LABS: BASOPHILS % (AUTO) 0.6 % (0.0-2.0); EOSINOPHILS % (AUTO) 2.3 % (1.0-6.0); HEMATOCRIT 37.9 % (41-53); HEMOGLOBIN 12.7 g/dL (13.5-17.5); LYMPHOCYTES # (AUTO) 1.4 K/uL (1.0-4.8); LYMPHOCYTES % (AUTO) 24.5 % (22.0-44.0); MEAN CORPUSCULAR HEMOGLOBIN 27.2 pg (26.0-34.0); MEAN CORPUSCULAR HGB CONC 33.5 G/dL (31.0-37.0); MEAN CORPUSCULAR VOLUME 81 fL (80-100); MONOCYTES # (AUTO) 0.5 K/uL (0.1-1.0); MONOCYTES % (AUTO) 9.6 % (2.0-9.0); NEUTROPHILS # (AUTO) 3.5 K/uL (1.8-7.7); PLATELET COUNT (AUTO) 326 K/uL (150-450); RED BLOOD CELL COUNT(AUTO) 4.67 MIL/uL (4.50-5.90)
[2018-02-04 07:52] LABS: ALANINE AMINOTRANSFERASE 9 U/L (12-78); ALBUMIN 3.4 g/dL (3.4-5.0); ALKALINE PHOSPHATASE 62 U/L (46-116); ANION GAP 6 mmol/L (8-16); ASPARTATE AMINOTRANSFERASE 11 U/L (15-37); BILIRUBIN,TOTAL 0.3 mg/dL (0.1-1.0); CALCIUM, TOTAL 8.5 mg/dL (8.8-10.5); CARBON DIOXIDE 30 mmol/L (22-29); CHLORIDE 104 mmol/L (98-107); CHOL/HDL RATIO 1.9 (4.2-7.3); CHOLESTEROL 138 mg/dL (131-200); CREATININE 0.79 mg/dL (0.60-1.30); GLOMERULAR FILTR. RATE CALC > 60 mL/min (>60); GLUCOSE,RANDOM 83 mg/dL (70-110); HDL CHOLESTEROL 74 mg/dL (40-60); LDL CHOL (CALC.) 60 mg/dL (0-130); POTASSIUM 4.9 mmol/L (3.5-5.1); SODIUM SERUM 140 mmol/L (136-145); TOTAL PROTEIN, SERUM 6.2 g/dL (6.4-8.2); TRIGLYCERIDES 22 mg/dL (15-150); UREA NITROGEN, BLOOD 17 mg/dL (7-18)
[2018-02-04] MEDS: BACLOFEN 10 MG TABLET PO SCH ×3 (08:54→16:02)
[2018-02-04 10:20] VITALS: BP 126/89
[2018-02-04] MEDS: NICOTINE 21 MG/24 HOUR PATCH TD SCH (13:21)
[2018-02-04 19:00] VITALS: BP 130/69
[2018-02-04] MEDS ORDERED: RisperiDONE MICROSPHERES 25 MG/2 ML SYRINGE IM SCH (19:00)
[2018-02-04 19:02] VITALS: BP 130/69
[2018-02-04] MEDS: ZOLPIDEM TARTRATE 10 MG TABLET PO PRN (20:26)
[2018-02-05] MEDS: HALOPERIDOL 5 MG TABLET PO PRN ×3 (01:26→11:58)
[2018-02-05] MEDS: LORazepam 2 MG TABLET PO PRN ×4 (01:28→16:31)
[2018-02-05 01:30] VITALS: BP 132/87
[2018-02-05] MEDS: BACLOFEN 10 MG TABLET PO SCH ×3 (07:54→16:31)
[2018-02-05] MEDS: DIVALPROEX SODIUM 500 MG ER TABLET PO SCH ×2 (07:54→16:31)
[2018-02-05] MEDS: NICOTINE 21 MG/24 HOUR PATCH TD SCH (07:59)
[2018-02-05 09:55] VITALS: BP 135/76
[2018-02-05] MEDS: ACETAMINOPHEN 325 MG TABLET PO PRN (09:55)
[2018-02-05 10:47] VITALS: BP 109/92
[2018-02-05 16:54] VITALS: BP 127/70
[2018-02-05] MEDS: ZOLPIDEM TARTRATE 10 MG TABLET PO PRN (20:25)
[2018-02-06 03:40] VITALS: BP 127/98
[2018-02-06] MEDS: LORazepam 2 MG TABLET PO PRN ×4 (03:59→17:00)
[2018-02-06] MEDS: HALOPERIDOL 5 MG TABLET PO PRN ×4 (04:00→17:00)
[2018-02-06] MEDS: BACLOFEN 10 MG TABLET PO SCH ×3 (08:31→16:12)
[2018-02-06] MEDS: DIVALPROEX SODIUM 500 MG ER TABLET PO SCH ×2 (08:31→16:12)
[2018-02-06] MEDS: NICOTINE 21 MG/24 HOUR PATCH TD SCH (08:33)
[2018-02-06 09:55] VITALS: BP 109/61
[2018-02-06 11:30] VITALS: BP 123/65
[2018-02-06] MEDS: ACETAMINOPHEN 325 MG TABLET PO PRN (11:30)
[2018-02-06 20:59] VITALS: BP 115/67
[2018-02-06] MEDS: ZOLPIDEM TARTRATE 10 MG TABLET PO PRN (22:53)
[2018-02-07 03:15] VITALS: BP 125/92
[2018-02-07] MEDS: LORazepam 2 MG TABLET PO PRN ×4 (03:24→16:43)
[2018-02-07] MEDS: HALOPERIDOL 5 MG TABLET PO PRN ×4 (03:24→16:43)
[2018-02-07] MEDS: BACLOFEN 10 MG TABLET PO SCH ×3 (08:05→16:43)
[2018-02-07] MEDS: NICOTINE 21 MG/24 HOUR PATCH TD SCH (08:06)
[2018-02-07] MEDS: DIVALPROEX SODIUM 500 MG ER TABLET PO SCH ×2 (08:12→16:42)
[2018-02-07 10:15] VITALS: BP 112/85
[2018-02-07] MEDS: ACETAMINOPHEN 325 MG TABLET PO PRN (10:33)
[2018-02-07 17:50] VITALS: BP 127/92
[2018-02-07] MEDS: ZOLPIDEM TARTRATE 10 MG TABLET PO PRN (21:20)
[2018-02-08 02:10] VITALS: BP 123/91
[2018-02-08] MEDS: ACETAMINOPHEN 325 MG TABLET PO PRN ×3 (02:38→18:44)
[2018-02-08] MEDS: HALOPERIDOL 5 MG TABLET PO PRN ×4 (05:59→19:48)
[2018-02-08] MEDS: LORazepam 2 MG TABLET PO PRN ×4 (06:22→19:48)
[2018-02-08 10:09] VITALS: BP 100/59
[2018-02-08] MEDS: BACLOFEN 10 MG TABLET PO SCH ×3 (10:12→16:21)
[2018-02-08] MEDS: DIVALPROEX SODIUM 500 MG ER TABLET PO SCH ×2 (10:13→16:21)
[2018-02-08] MEDS: NICOTINE 21 MG/24 HOUR PATCH TD SCH (10:18)
[2018-02-08 10:50] VITALS: BP 100/59
[2018-02-08 16:49] VITALS: BP 112/66
[2018-02-08] MEDS: ZOLPIDEM TARTRATE 10 MG TABLET PO PRN (20:27)
[2018-02-09] MEDS: HALOPERIDOL 5 MG TABLET PO PRN ×3 (05:54→15:15)
[2018-02-09] MEDS: LORazepam 2 MG TABLET PO PRN ×3 (05:54→15:15)
[2018-02-09] MEDS: DIVALPROEX SODIUM 500 MG ER TABLET PO SCH ×2 (09:14→16:15)
[2018-02-09] MEDS: BACLOFEN 10 MG TABLET PO SCH ×3 (09:14→16:16)
[2018-02-09] MEDS: NICOTINE 21 MG/24 HOUR PATCH TD SCH (09:18)
[2018-02-09 09:52] VITALS: BP 130/76
[2018-02-09] MEDS: ACETAMINOPHEN 325 MG TABLET PO PRN (11:31)
[2018-02-09 18:28] VITALS: BP 127/77
[2018-02-09] MEDS: ZOLPIDEM TARTRATE 10 MG TABLET PO PRN (20:24)
[2018-02-10 04:28] VITALS: BP 130/98
[2018-02-10] MEDS: HALOPERIDOL 5 MG TABLET PO PRN ×2 (04:41→09:42)
[2018-02-10] MEDS: LORazepam 2 MG TABLET PO PRN ×2 (04:41→09:42)
[2018-02-10] MEDS: BACLOFEN 10 MG TABLET PO SCH ×2 (08:41→12:12)
[2018-02-10] MEDS: DIVALPROEX SODIUM 500 MG ER TABLET PO SCH (08:41)
[2018-02-10] MEDS: NICOTINE 21 MG/24 HOUR PATCH TD SCH (08:41)
[2018-02-10 09:49] VITALS: BP 134/74
[2018-02-10] MEDS: ACETAMINOPHEN 325 MG TABLET PO PRN (10:16)
== END 2018-02-10 14:45 | disposition home or self-care (01) | DRG 750 ==
LOC: EMS 11:29 → 3EI 20:56
PROVIDERS: ADMIT Psychiatry & Neurology Psychiatry; ATTEND Psychiatry & Neurology Psychiatry
DX: F25.9 Schizoaffective disorder, unspecified (principal); R45.851 Suicidal ideations; D64.9 Anemia, unspecified; G47.00 Insomnia, unspecified; G89.29 Other chronic pain; M54.9 Dorsalgia, unspecified; F32.9 Major depressive disorder, single episode, unspecified; F12.90 Cannabis use, unspecified, uncomplicated; F17.210 Nicotine dependence, cigarettes, uncomplicated; Z88.1 Allergy status to other antibiotic agents; Z88.0 Allergy status to penicillin; Z88.6 Allergy status to analgesic agent; Z79.899 Other long term (current) drug therapy
CPT/HCPCS: 87081; 99285; G0480; J2794

== ENCOUNTER 2018-04-09 14:14 | Emergency (ER) | payer MEDICAID ==
[~2018-04-09] VITALS: Ht 177.8 cm; Wt 70.5 kg
[2018-04-09] MEDS ORDERED: MELO-107 PO (14:19)
[2018-04-09 15:18] VITALS: BP 144/84
[2018-04-09] MEDS ORDERED: HYDROCODONE/ACETAMINOPHEN 5-325 MG TABLET PO ONE (15:45)
== END 2018-04-09 15:54 | disposition home or self-care (01) ==
LOC: EMS 14:16
DX: M19.90 Unspecified osteoarthritis, unspecified site (principal); M25.551 Pain in right hip; R03.0 Elevated blood-pressure reading, without diagnosis of hypertension; G89.29 Other chronic pain; F17.210 Nicotine dependence, cigarettes, uncomplicated; Z88.1 Allergy status to other antibiotic agents; Z88.6 Allergy status to analgesic agent; Z88.0 Allergy status to penicillin; Z88.8 Allergy status to other drugs, medicaments and biological substances
CPT/HCPCS: 73502; 99284

== ENCOUNTER 2018-04-28 11:47 | Emergency (ER) | payer MEDICAID ==
[~2018-04-28] VITALS: Ht 175.3 cm; Wt 70.5 kg
[~2018-04-28 11:47] MED LIST changes: +MELO-107 PO
[2018-04-28] MEDS ORDERED: HYDROCODONE/ACETAMINOPHEN 5-325 MG TABLET PO ONE (12:30)
[2018-04-28 13:57] VITALS: BP 131/72
== END 2018-04-28 14:46 | disposition home or self-care (01) ==
LOC: EMS 11:48
DX: M25.551 Pain in right hip (principal); R03.0 Elevated blood-pressure reading, without diagnosis of hypertension; F32.9 Major depressive disorder, single episode, unspecified; F20.9 Schizophrenia, unspecified; F17.210 Nicotine dependence, cigarettes, uncomplicated; Z88.6 Allergy status to analgesic agent; Z88.1 Allergy status to other antibiotic agents; Z88.0 Allergy status to penicillin; Z88.8 Allergy status to other drugs, medicaments and biological substances
CPT/HCPCS: 73502; 99284

== ENCOUNTER 2018-05-31 11:31 | Inpatient (IN) | payer MEDICAID ==
[~2018-05-31] VITALS: Ht 175.3 cm; Wt 68.5 kg
[~2018-05-31 11:31] MED LIST changes: -BACL10TA PO; -FERR-89 PO; -MELO-107 PO
[2018-05-31] MEDS ORDERED: ACETAMINOPHEN 500 MG TABLET PO ONE (12:00)
[2018-05-31 12:08] LABS: BASOPHILS % (AUTO) 0.5 % (0.0-2.0); EOSINOPHILS % (AUTO) 0.8 % (1.0-6.0); HEMOGLOBIN 14.9 g/dL (13.5-17.5); LYMPHOCYTES # (AUTO) 1.7 K/uL (1.0-4.8); LYMPHOCYTES % (AUTO) 24.2 % (22.0-44.0); MEAN CORPUSCULAR HEMOGLOBIN 31.8 pg (26.0-34.0); MEAN CORPUSCULAR HGB CONC 33.7 G/dL (31.0-37.0); MEAN CORPUSCULAR VOLUME 94 fL (80-100); MONOCYTES # (AUTO) 0.6 K/uL (0.1-1.0); MONOCYTES % (AUTO) 7.8 % (2.0-9.0); NEUTROPHILS # (AUTO) 4.8 K/uL (1.8-7.7); NEUTROPHILS % (AUTO) 66.7 % (40.0-70.0); PLATELET COUNT (AUTO) 268 K/uL (150-450); RED BLOOD CELL COUNT(AUTO) 4.67 MIL/uL (4.50-5.90); RED CELL DISTRIBUTION WIDTH 15.6 % (11.5-14.5)
[2018-05-31 12:18] LABS: ANION GAP 7 mmol/L (8-16); CALCIUM, TOTAL 8.6 mg/dL (8.8-10.5); CARBON DIOXIDE 29 mmol/L (22-29); CHLORIDE 108 mmol/L (98-107); CREATININE 0.83 mg/dL (0.60-1.30); GLOMERULAR FILTR. RATE CALC > 60 mL/min (>60); GLUCOSE,RANDOM 86 mg/dL (70-110); SODIUM SERUM 144 mmol/L (136-145); UREA NITROGEN, BLOOD 12 mg/dL (7-18)
[2018-05-31 12:23] LABS: ALANINE AMINOTRANSFERASE 9 U/L (12-78); ALBUMIN 3.4 g/dL (3.4-5.0); ALKALINE PHOSPHATASE 46 U/L (46-116); ASPARTATE AMINOTRANSFERASE 9 U/L (15-37); BILIRUBIN,TOTAL 0.5 mg/dL (0.1-1.0); TOTAL PROTEIN, SERUM 6.3 g/dL (6.4-8.2); VALPROIC ACID 41 mcg/mL (50-100)
[2018-05-31] MEDS ORDERED: HALOPERIDOL 5 MG TABLET PO ONE (12:30)
[2018-05-31] MEDS ORDERED: LORazepam 2 MG TABLET PO ONE (12:30)
[2018-05-31 12:45] LABS: AMPHET/METH SCREEN,URINE NEGATIVE (NEGATIVE); BARBITURATE SCREEN, URINE NEGATIVE (NEGATIVE); BENZODIAZEPINES SCREEN,URINE NEGATIVE (NEGATIVE); CANNABINOID SCREEN,URINE NEGATIVE (NEGATIVE); COCAINE SCREEN,URINE NEGATIVE (NEGATIVE); METHADONE SCREEN, URINE NEGATIVE (NEGATIVE); OPIATE SCREEN,URINE NEGATIVE (NEGATIVE)
[2018-05-31 12:46] LABS: PHENCYCLIDINE SCREEN,URINE NEGATIVE (NEGATIVE)
[2018-05-31 16:55] VITALS: BP 135/92
[2018-05-31] MEDS ORDERED: MAG HYDROX/AL HYDROX/SIMETH ES 30 ML SUSPENSION UDCUP PO PRN (18:00)
[2018-05-31] MEDS ORDERED: MAGNESIUM HYDROXIDE SUSPENSION 30 ML UDCUP PO PRN (18:00)
[2018-05-31] MEDS ORDERED: ACETAMINOPHEN 325 MG TABLET PO PRN (18:00)
[2018-05-31] MEDS ORDERED: ALBUTEROL SULFATE HFA 90 MCG/PUFF 8 GM INHALER IH PRN (18:00)
[2018-05-31] MEDS ORDERED: PETROLATUM,WHITE 71 GM JELLY TP PRN (18:00)
[2018-05-31] MEDS ORDERED: LOPERAMIDE HCL 2 MG CAPSULE PO PRN (18:00)
[2018-05-31] MEDS ORDERED: DOCUSATE SODIUM 100 MG CAPSULE PO PRN (18:00)
[2018-05-31] MEDS ORDERED: GuaiFENesin/D-METHORPHAN [SUGAR-FREE] 200-20MG/10 ML SYRUP UDCUP PO PRN (18:00)
[2018-05-31] MEDS ORDERED: CloNIDine HCL 0.1 MG TABLET PO PRN (18:00)
[2018-05-31] MEDS ORDERED: ONDANSETRON HCL 4 MG TABLET PO PRN (18:00)
[2018-05-31] MEDS: LORazepam 2 MG TABLET PO PRN (18:48)
[2018-06-01 01:13] VITALS: BP 130/90
[2018-06-01] MEDS: LORazepam 2 MG TABLET PO PRN ×4 (01:17→13:19)
[2018-06-01 08:00] VITALS: BP 137/83
[2018-06-01 08:12] LABS: BASOPHILS % (AUTO) 0.6 % (0.0-2.0); EOSINOPHILS % (AUTO) 2.1 % (1.0-6.0); HEMATOCRIT 44.5 % (41-53); HEMOGLOBIN 15.4 g/dL (13.5-17.5); LYMPHOCYTES # (AUTO) 3.2 K/uL (1.0-4.8); LYMPHOCYTES % (AUTO) 63.9 % (22.0-44.0); MEAN CORPUSCULAR HEMOGLOBIN 29.2 pg (26.0-34.0); MEAN CORPUSCULAR HGB CONC 34.6 G/dL (31.0-37.0); MEAN CORPUSCULAR VOLUME 85 fL (80-100); MONOCYTES # (AUTO) 0.6 K/uL (0.1-1.0); MONOCYTES % (AUTO) 11.6 % (2.0-9.0); NEUTROPHILS # (AUTO) 1.1 K/uL (1.8-7.7); NEUTROPHILS % (AUTO) 21.8 % (40.0-70.0); PLATELET COUNT (AUTO) 239 K/uL (150-450); RED BLOOD CELL COUNT(AUTO) 5.26 MIL/uL (4.50-5.90); RED CELL DISTRIBUTION WIDTH 13.7 % (11.5-14.5)
[2018-06-01 08:16] LABS: HEMOGLOBIN A1C 5.4 % (4.5-6.2)
[2018-06-01 08:35] LABS: ALANINE AMINOTRANSFERASE 64 U/L (12-78); ALKALINE PHOSPHATASE 84 U/L (46-116); ANION GAP 7 mmol/L (8-16); ASPARTATE AMINOTRANSFERASE 49 U/L (15-37); BILIRUBIN,TOTAL 0.3 mg/dL (0.1-1.0); CALCIUM, TOTAL 8.9 mg/dL (8.8-10.5); CARBON DIOXIDE 28 mmol/L (22-29); CHLORIDE 101 mmol/L (98-107); CHOL/HDL RATIO 3.9 (4.2-7.3); CHOLESTEROL 138 mg/dL (131-200); CREATININE 0.82 mg/dL (0.60-1.30); GLOMERULAR FILTR. RATE CALC > 60 mL/min (>60); GLUCOSE,RANDOM 84 mg/dL (70-110); HDL CHOLESTEROL 35 mg/dL (40-60); LDL CHOL (CALC.) 80 mg/dL (0-130); POTASSIUM 3.8 mmol/L (3.5-5.1); SODIUM SERUM 136 mmol/L (136-145); THYROID STIMULATING HORMONE 3.92 uIU/mL (0.36-3.74); TOTAL PROTEIN, SERUM 7.1 g/dL (6.4-8.2); TRIGLYCERIDES 113 mg/dL (15-150); UREA NITROGEN, BLOOD 10 mg/dL (7-18)
[2018-06-01] MEDS ORDERED: ACETAMINOPHEN 325 MG TABLET PO ONE (08:45)
[2018-06-01 09:46] VITALS: BP 113/70
[2018-06-01] MEDS: NICOTINE 14 MG/24 HOUR PATCH TD PRN (13:19)
[2018-06-01 16:41] VITALS: BP 119/71
[2018-06-01] MEDS: BACITRACIN 28.4 GM OINTMENT TP SCH (17:02)
[2018-06-01] MEDS: HALOPERIDOL 5 MG TABLET PO PRN (17:32)
[2018-06-01] MEDS: ZOLPIDEM TARTRATE 10 MG TABLET PO PRN (20:28)
[2018-06-02 01:45] VITALS: BP 133/90
[2018-06-02] MEDS: LORazepam 2 MG TABLET PO PRN ×4 (01:47→17:02)
[2018-06-02] MEDS: ACETAMINOPHEN 325 MG TABLET PO PRN ×2 (05:40→12:16)
[2018-06-02] MEDS: HALOPERIDOL 5 MG TABLET PO PRN ×2 (07:20→16:14)
[2018-06-02 08:01] VITALS: BP 128/98
[2018-06-02] MEDS: OMEPRAZOLE 20 MG CAPSULE PO SCH (08:26)
[2018-06-02] MEDS: BACITRACIN 28.4 GM OINTMENT TP SCH ×2 (08:26→16:14)
[2018-06-02] MEDS: DIVALPROEX SODIUM 500 MG DR TABLET PO SCH ×2 (11:05→16:14)
[2018-06-02 12:16] VITALS: BP 128/82
[2018-06-02 13:16] VITALS: BP 126/78
[2018-06-02] MEDS ORDERED: RisperiDONE MICROSPHERES 25 MG/2 ML SYRINGE IM ONE (15:00)
[2018-06-02 16:00] VITALS: BP 127/87
[2018-06-02] MEDS: NICOTINE 14 MG/24 HOUR PATCH TD PRN (17:23)
[2018-06-02] MEDS: ZOLPIDEM TARTRATE 10 MG TABLET PO PRN (21:15)
[2018-06-03 01:15] VITALS: BP 133/99
[2018-06-03] MEDS: HALOPERIDOL 5 MG TABLET PO PRN ×4 (01:27→17:57)
[2018-06-03] MEDS: LORazepam 2 MG TABLET PO PRN ×4 (01:27→17:57)
[2018-06-03] MEDS: BACITRACIN 28.4 GM OINTMENT TP SCH ×2 (08:33→16:14)
[2018-06-03] MEDS: OMEPRAZOLE 20 MG CAPSULE PO SCH (08:33)
[2018-06-03] MEDS: DIVALPROEX SODIUM 500 MG DR TABLET PO SCH ×2 (08:33→16:14)
[2018-06-03 08:52] VITALS: BP 102/69
[2018-06-03 12:23] VITALS: BP 112/76
[2018-06-03] MEDS: ACETAMINOPHEN 325 MG TABLET PO PRN (12:23)
[2018-06-03] MEDS: NICOTINE 14 MG/24 HOUR PATCH TD PRN (12:24)
[2018-06-03 16:38] VITALS: BP 116/76
[2018-06-03] MEDS: ZOLPIDEM TARTRATE 10 MG TABLET PO PRN (20:07)
[2018-06-04 01:20] VITALS: BP 123/84
[2018-06-04] MEDS: ACETAMINOPHEN 325 MG TABLET PO PRN (01:21)
[2018-06-04] MEDS: LORazepam 2 MG TABLET PO PRN ×2 (03:19→09:16)
[2018-06-04 08:18] VITALS: BP 122/90
[2018-06-04] MEDS: HALOPERIDOL 5 MG TABLET PO PRN (09:15)
[2018-06-04] MEDS: DIVALPROEX SODIUM 500 MG DR TABLET PO SCH (09:16)
[2018-06-04] MEDS: OMEPRAZOLE 20 MG CAPSULE PO SCH (09:16)
[2018-06-04] MEDS: BACITRACIN 28.4 GM OINTMENT TP SCH (09:16)
[2018-06-04] MEDS: NICOTINE 14 MG/24 HOUR PATCH TD PRN (09:47)
== END 2018-06-04 15:06 | disposition home or self-care (01) | DRG 750 ==
LOC: EMS 11:32 → B2S 14:03 → B3A 16:33 → B2S 06-02 21:56
PROVIDERS: ADMIT Psychiatry & Neurology Psychiatry; ATTEND Psychiatry & Neurology Psychiatry
DX: F25.9 Schizoaffective disorder, unspecified (principal); R45.851 Suicidal ideations; D64.9 Anemia, unspecified; F32.9 Major depressive disorder, single episode, unspecified; K21.9 Gastro-esophageal reflux disease without esophagitis; G89.29 Other chronic pain; F41.9 Anxiety disorder, unspecified; F12.90 Cannabis use, unspecified, uncomplicated; M54.9 Dorsalgia, unspecified; F17.200 Nicotine dependence, unspecified, uncomplicated; F10.10 Alcohol abuse, uncomplicated; F99 Mental disorder, not otherwise specified; Z88.0 Allergy status to penicillin; Z88.1 Allergy status to other antibiotic agents; Z88.8 Allergy status to other drugs, medicaments and biological substances
CPT/HCPCS: 83036; 84439; 84443; 87081; 99285; G0480; J2794

== ENCOUNTER 2018-08-30 17:27 | Inpatient (IN) | payer MEDICAID ==
[~2018-08-30] VITALS: Ht 175.3 cm; Wt 68.1 kg
[~2018-08-30 17:27] MED LIST changes: +RISP1 PO; -RISPC25 IM
[2018-08-30 21:13] LABS: BASOPHILS % (AUTO) 0.5 % (0.0-2.0); EOSINOPHILS % (AUTO) 1.9 % (1.0-6.0); HEMATOCRIT 44.6 % (41-53); HEMOGLOBIN 15.2 g/dL (13.5-17.5); LYMPHOCYTES % (AUTO) 34.7 % (22.0-44.0); MEAN CORPUSCULAR HEMOGLOBIN 32.8 pg (26.0-34.0); MEAN CORPUSCULAR VOLUME 97 fL (80-100); MONOCYTES # (AUTO) 0.6 K/uL (0.1-1.0); MONOCYTES % (AUTO) 7.3 % (2.0-9.0); NEUTROPHILS # (AUTO) 4.8 K/uL (1.8-7.7); NEUTROPHILS % (AUTO) 55.6 % (40.0-70.0); PLATELET COUNT (AUTO) 266 K/uL (150-450); RED BLOOD CELL COUNT(AUTO) 4.62 MIL/uL (4.50-5.90); RED CELL DISTRIBUTION WIDTH 14.4 % (11.5-14.5)
[2018-08-30 21:28] LABS: ANION GAP 3 mmol/L (8-16); CALCIUM, TOTAL 8.5 mg/dL (8.8-10.5); CARBON DIOXIDE 33 mmol/L (22-29); CHLORIDE 107 mmol/L (98-107); CREATININE 0.94 mg/dL (0.60-1.30); GLOMERULAR FILTR. RATE CALC > 60 mL/min (>60); GLUCOSE,RANDOM 106 mg/dL (70-110); POTASSIUM 3.9 mmol/L (3.5-5.1); SODIUM SERUM 143 mmol/L (136-145); UREA NITROGEN, BLOOD 16 mg/dL (7-18)
[2018-08-30 21:34] LABS: ALANINE AMINOTRANSFERASE 14 U/L (12-78); ALBUMIN 3.2 g/dL (3.4-5.0); ALKALINE PHOSPHATASE 54 U/L (46-116); ASPARTATE AMINOTRANSFERASE 15 U/L (15-37); BILIRUBIN,TOTAL 0.3 mg/dL (0.1-1.0); TOTAL PROTEIN, SERUM 6.3 g/dL (6.4-8.2)
[2018-08-30 21:45] LABS: VALPROIC ACID 79 mcg/mL (50-100)
[2018-08-30] MEDS ORDERED: LORazepam 2 MG TABLET PO ONE (21:45)
[2018-08-30] MEDS ORDERED: ACETAMINOPHEN 325 MG TABLET PO PRN (21:45)
[2018-08-30] MEDS ORDERED: HALOPERIDOL 5 MG TABLET PO ONE (21:45)
[2018-08-30 22:34] LABS: APPEARANCE,URINE CLEAR (CLEAR); BILIRUBIN,URINE NEGATIVE (NEGATIVE); GLUCOSE, URINE (UA) NEGATIVE (NEGATIVE); KETONES,URINE 15 mg/dL (NEGATIVE); LEUKOCYTE ESTERASE ,URINE NEGATIVE (NEGATIVE); NITRATE,URINE NEGATIVE (NEGATIVE); OCCULT BLOOD,URINE SMALL (NEGATIVE); PROTEIN,URINE NEGATIVE (NEGATIVE); UROBILINOGEN,URINE 0.2 mg/dL (<=1.0)
[2018-08-30 22:39] LABS: AMPHET/METH SCREEN,URINE NEGATIVE (NEGATIVE); BARBITURATE SCREEN, URINE NEGATIVE (NEGATIVE); BENZODIAZEPINES SCREEN,URINE NEGATIVE (NEGATIVE); CANNABINOID SCREEN,URINE POSITIVE (NEGATIVE); COCAINE SCREEN,URINE NEGATIVE (NEGATIVE); METHADONE SCREEN, URINE NEGATIVE (NEGATIVE); OPIATE SCREEN,URINE NEGATIVE (NEGATIVE)
[2018-08-30 22:42] LABS: PHENCYCLIDINE SCREEN,URINE NEGATIVE (NEGATIVE)
[2018-08-30 22:51] LABS: BACTERIA,URINE Few /HPF (None Seen); CALCIUM OXALATE CRYSTALS,UR Moderate /LPF (None Seen); SQUAMOUS EPITHELIAL CELL,UR Few /LPF (None Seen); WBC,URINE 0-2 /HPF (0-5)
[2018-08-31] MEDS: LORazepam 2 MG TABLET PO PRN ×3 (01:59→14:06)
[2018-08-31 03:35] VITALS: BP 142/90
[2018-08-31] MEDS: HALOPERIDOL 5 MG TABLET PO PRN ×2 (07:54→14:06)
[2018-08-31 08:01] LABS: BASOPHILS % (AUTO) 0.1 % (0.0-2.0); EOSINOPHILS % (AUTO) 2.1 % (1.0-6.0); HEMATOCRIT 43.7 % (41-53); HEMOGLOBIN 14.8 g/dL (13.5-17.5); LYMPHOCYTES # (AUTO) 1.5 K/uL (1.0-4.8); LYMPHOCYTES % (AUTO) 24.8 % (22.0-44.0); MEAN CORPUSCULAR HEMOGLOBIN 32.5 pg (26.0-34.0); MEAN CORPUSCULAR HGB CONC 33.8 G/dL (31.0-37.0); MEAN CORPUSCULAR VOLUME 96 fL (80-100); MONOCYTES # (AUTO) 0.5 K/uL (0.1-1.0); MONOCYTES % (AUTO) 8.2 % (2.0-9.0); NEUTROPHILS % (AUTO) 64.8 % (40.0-70.0); PLATELET COUNT (AUTO) 248 K/uL (150-450); RED BLOOD CELL COUNT(AUTO) 4.55 MIL/uL (4.50-5.90); RED CELL DISTRIBUTION WIDTH 14.2 % (11.5-14.5)
[2018-08-31 08:10] LABS: HEMOGLOBIN A1C 5.6 % (4.5-6.2)
[2018-08-31 08:28] VITALS: BP 134/67
[2018-08-31 08:30] LABS: ALANINE AMINOTRANSFERASE 11 U/L (12-78); ALBUMIN 3.1 g/dL (3.4-5.0); ALKALINE PHOSPHATASE 46 U/L (46-116); ANION GAP 8 mmol/L (8-16); ASPARTATE AMINOTRANSFERASE 13 U/L (15-37); BILIRUBIN,TOTAL 0.3 mg/dL (0.1-1.0); CALCIUM, TOTAL 7.9 mg/dL (8.8-10.5); CARBON DIOXIDE 28 mmol/L (22-29); CHLORIDE 107 mmol/L (98-107); CHOLESTEROL 129 mg/dL (131-200); CREATININE 0.77 mg/dL (0.60-1.30); GLOMERULAR FILTR. RATE CALC > 60 mL/min (>60); GLUCOSE,RANDOM 95 mg/dL (70-110); HDL CHOLESTEROL 64 mg/dL (40-60); LDL CHOL (CALC.) 56 mg/dL (0-130); POTASSIUM 3.9 mmol/L (3.5-5.1); SODIUM SERUM 143 mmol/L (136-145); THYROID STIMULATING HORMONE 1.37 uIU/mL (0.36-3.74); TOTAL PROTEIN, SERUM 5.8 g/dL (6.4-8.2); TRIGLYCERIDES 44 mg/dL (15-150); UREA NITROGEN, BLOOD 17 mg/dL (7-18)
[2018-08-31] MEDS: NICOTINE 14 MG/24 HOUR PATCH TD SCH (09:02)
[2018-08-31 16:13] VITALS: BP 132/82
[2018-08-31] MEDS: DIVALPROEX SODIUM 500 MG DR TABLET PO SCH (16:54)
[2018-08-31] MEDS ORDERED: PETROLATUM,WHITE 71 GM JELLY TP PRN (17:30)
[2018-08-31] MEDS ORDERED: GuaiFENesin/D-METHORPHAN [SUGAR-FREE] 200-20MG/10 ML SYRUP UDCUP PO PRN (17:30)
[2018-08-31] MEDS ORDERED: ONDANSETRON HCL 4 MG TABLET PO PRN (17:30)
[2018-08-31] MEDS ORDERED: ALBUTEROL SULFATE HFA 90 MCG/PUFF 8 GM INHALER IH PRN (17:30)
[2018-08-31] MEDS ORDERED: MAGNESIUM HYDROXIDE SUSPENSION 30 ML UDCUP PO PRN (17:30)
[2018-08-31] MEDS ORDERED: MAG HYDROX/AL HYDROX/SIMETH ES 30 ML SUSPENSION UDCUP PO PRN (17:30)
[2018-08-31] MEDS ORDERED: CloNIDine HCL 0.1 MG TABLET PO PRN (17:30)
[2018-08-31] MEDS ORDERED: NICOTINE 14 MG/24 HOUR PATCH TD PRN (17:30)
[2018-08-31] MEDS ORDERED: ACETAMINOPHEN 325 MG TABLET PO PRN (17:30)
[2018-08-31] MEDS ORDERED: DOCUSATE SODIUM 100 MG CAPSULE PO PRN (17:30)
[2018-08-31] MEDS ORDERED: LOPERAMIDE HCL 2 MG CAPSULE PO PRN (17:30)
[2018-08-31] MEDS: RisperiDONE 1 MG TABLET PO SCH (20:15)
[2018-08-31] MEDS: ZOLPIDEM TARTRATE 10 MG TABLET PO PRN (20:49)
[2018-09-01 06:58] VITALS: BP 120/82
[2018-09-01 08:29] VITALS: BP 124/77
[2018-09-01] MEDS: RisperiDONE 1 MG TABLET PO SCH ×2 (08:33→20:45)
[2018-09-01] MEDS: DIVALPROEX SODIUM 500 MG DR TABLET PO SCH ×3 (08:33→16:45)
[2018-09-01] MEDS: NICOTINE 14 MG/24 HOUR PATCH TD SCH (08:33)
[2018-09-01] MEDS: LORazepam 2 MG TABLET PO PRN ×3 (09:16→17:44)
[2018-09-01 16:00] VITALS: BP 128/73
[2018-09-01] MEDS: HALOPERIDOL 5 MG TABLET PO PRN (17:44)
[2018-09-01] MEDS: ZOLPIDEM TARTRATE 10 MG TABLET PO PRN (20:45)
[2018-09-02 06:23] VITALS: BP 119/78
[2018-09-02] MEDS: DIVALPROEX SODIUM 500 MG DR TABLET PO SCH ×3 (08:36→16:05)
[2018-09-02] MEDS: RisperiDONE 1 MG TABLET PO SCH ×2 (08:36→21:19)
[2018-09-02] MEDS: NICOTINE 14 MG/24 HOUR PATCH TD SCH (08:37)
[2018-09-02 08:39] VITALS: BP 115/64
[2018-09-02] MEDS: LORazepam 2 MG TABLET PO PRN ×3 (08:53→17:23)
[2018-09-02] MEDS: HALOPERIDOL 5 MG TABLET PO PRN ×3 (08:53→17:23)
[2018-09-02 16:00] VITALS: BP 133/69
[2018-09-02] MEDS: ZOLPIDEM TARTRATE 10 MG TABLET PO PRN (20:29)
[2018-09-03 05:11] VITALS: BP 124/79
[2018-09-03] MEDS: LORazepam 2 MG TABLET PO PRN ×3 (07:08→15:57)
[2018-09-03] MEDS: HALOPERIDOL 5 MG TABLET PO PRN ×3 (07:08→15:57)
[2018-09-03 08:31] VITALS: BP 108/73
[2018-09-03] MEDS: DIVALPROEX SODIUM 500 MG DR TABLET PO SCH ×3 (09:10→16:52)
[2018-09-03] MEDS: RisperiDONE 1 MG TABLET PO SCH ×2 (09:10→20:07)
[2018-09-03] MEDS: NICOTINE 14 MG/24 HOUR PATCH TD SCH (09:12)
[2018-09-03 16:00] VITALS: BP 132/99
[2018-09-03] MEDS: ZOLPIDEM TARTRATE 10 MG TABLET PO PRN (20:45)
[2018-09-04 07:11] VITALS: BP 124/78
[2018-09-04] MEDS: HALOPERIDOL 5 MG TABLET PO PRN ×2 (07:20→20:43)
[2018-09-04] MEDS: LORazepam 2 MG TABLET PO PRN ×4 (07:20→20:43)
[2018-09-04 08:26] VITALS: BP 119/77
[2018-09-04] MEDS: NICOTINE 14 MG/24 HOUR PATCH TD SCH (09:14)
[2018-09-04] MEDS: RisperiDONE 1 MG TABLET PO SCH ×2 (09:14→20:43)
[2018-09-04] MEDS: DIVALPROEX SODIUM 500 MG DR TABLET PO SCH ×3 (09:15→16:18)
[2018-09-04 16:10] VITALS: BP 113/69
[2018-09-04] MEDS: ZOLPIDEM TARTRATE 10 MG TABLET PO PRN (20:43)
[2018-09-05 00:18] VITALS: BP 124/84
[2018-09-05] MEDS: HALOPERIDOL 5 MG TABLET PO PRN ×4 (00:49→17:42)
[2018-09-05] MEDS: RisperiDONE 1 MG TABLET PO SCH ×2 (08:39→20:10)
[2018-09-05] MEDS: DIVALPROEX SODIUM 500 MG DR TABLET PO SCH ×3 (08:39→16:11)
[2018-09-05] MEDS: NICOTINE 14 MG/24 HOUR PATCH TD SCH (08:40)
[2018-09-05] MEDS: LORazepam 2 MG TABLET PO PRN ×3 (08:40→17:42)
[2018-09-05 08:49] VITALS: BP 130/90
[2018-09-05 16:07] VITALS: BP 118/75
[2018-09-05] MEDS: ZOLPIDEM TARTRATE 10 MG TABLET PO PRN (20:10)
[2018-09-06] VITALS: BP 114/70
[2018-09-06] MEDS: RisperiDONE 1 MG TABLET PO SCH (08:09)
[2018-09-06] MEDS: DIVALPROEX SODIUM 500 MG DR TABLET PO SCH ×2 (08:09→12:51)
[2018-09-06] MEDS: LORazepam 2 MG TABLET PO PRN (08:09)
[2018-09-06] MEDS: NICOTINE 14 MG/24 HOUR PATCH TD SCH (08:10)
[2018-09-06 08:54] VITALS: BP 123/68
== END 2018-09-06 13:25 | disposition home or self-care (01) | DRG 750 ==
LOC: EMS 17:28 → B2S 22:30
PROVIDERS: ADMIT Psychiatry & Neurology Psychiatry; ATTEND Psychiatry & Neurology Psychiatry
DX: F25.9 Schizoaffective disorder, unspecified (principal); R45.851 Suicidal ideations; F12.90 Cannabis use, unspecified, uncomplicated; F41.9 Anxiety disorder, unspecified; G89.29 Other chronic pain; K21.9 Gastro-esophageal reflux disease without esophagitis; M54.9 Dorsalgia, unspecified; F17.210 Nicotine dependence, cigarettes, uncomplicated; D64.9 Anemia, unspecified; Z23 Encounter for immunization
CPT/HCPCS: 83036; 84443; 87081; 90686; G0480

== ENCOUNTER 2018-09-10 14:38 | Inpatient (IN) | payer MEDICAID ==
[~2018-09-10] VITALS: Ht 175.3 cm; Wt 68.0 kg
[2018-09-10 19:32] LABS: BASOPHILS % (AUTO) 0.4 % (0.0-2.0); EOSINOPHILS % (AUTO) 1.1 % (1.0-6.0); HEMATOCRIT 46.4 % (41-53); HEMOGLOBIN 15.6 g/dL (13.5-17.5); LYMPHOCYTES # (AUTO) 3.3 K/uL (1.0-4.8); LYMPHOCYTES % (AUTO) 34.4 % (22.0-44.0); MEAN CORPUSCULAR HEMOGLOBIN 31.7 pg (26.0-34.0); MEAN CORPUSCULAR HGB CONC 33.7 G/dL (31.0-37.0); MEAN CORPUSCULAR VOLUME 94 fL (80-100); MONOCYTES # (AUTO) 0.8 K/uL (0.1-1.0); MONOCYTES % (AUTO) 8.4 % (2.0-9.0); NEUTROPHILS # (AUTO) 5.3 K/uL (1.8-7.7); NEUTROPHILS % (AUTO) 55.7 % (40.0-70.0); PLATELET COUNT (AUTO) 285 K/uL (150-450); RED BLOOD CELL COUNT(AUTO) 4.93 MIL/uL (4.50-5.90); RED CELL DISTRIBUTION WIDTH 14.2 % (11.5-14.5)
[2018-09-10 19:33] LABS: APPEARANCE,URINE CLOUDY (CLEAR); BILIRUBIN,URINE NEGATIVE (NEGATIVE); GLUCOSE, URINE (UA) NEGATIVE (NEGATIVE); KETONES,URINE 15 mg/dL (NEGATIVE); LEUKOCYTE ESTERASE ,URINE NEGATIVE (NEGATIVE); NITRATE,URINE NEGATIVE (NEGATIVE); OCCULT BLOOD,URINE MODERATE (NEGATIVE); PROTEIN,URINE NEGATIVE (NEGATIVE); UROBILINOGEN,URINE 0.2 mg/dL (<=1.0)
[2018-09-10 19:39] LABS: AMPHET/METH SCREEN,URINE NEGATIVE (NEGATIVE); BARBITURATE SCREEN, URINE NEGATIVE (NEGATIVE); BENZODIAZEPINES SCREEN,URINE NEGATIVE (NEGATIVE); CANNABINOID SCREEN,URINE POSITIVE (NEGATIVE); COCAINE SCREEN,URINE NEGATIVE (NEGATIVE); METHADONE SCREEN, URINE NEGATIVE (NEGATIVE); OPIATE SCREEN,URINE NEGATIVE (NEGATIVE); PHENCYCLIDINE SCREEN,URINE NEGATIVE (NEGATIVE)
[2018-09-10 19:40] LABS: ANION GAP 7 mmol/L (8-16); CALCIUM, TOTAL 8.9 mg/dL (8.8-10.5); CARBON DIOXIDE 32 mmol/L (22-29); CHLORIDE 103 mmol/L (98-107); CREATININE 0.82 mg/dL (0.60-1.30); GLOMERULAR FILTR. RATE CALC > 60 mL/min (>60); GLUCOSE,RANDOM 86 mg/dL (70-110); POTASSIUM 3.8 mmol/L (3.5-5.1); SODIUM SERUM 142 mmol/L (136-145); UREA NITROGEN, BLOOD 11 mg/dL (7-18)
[2018-09-10 19:40] LABS: BACTERIA,URINE Few /HPF (None Seen); RBC,URINE 26-50 /HPF (0-2); SQUAMOUS EPITHELIAL CELL,UR Rare /LPF (None Seen); WBC,URINE 0-2 /HPF (0-5)
[2018-09-10 19:46] LABS: ALANINE AMINOTRANSFERASE 17 U/L (12-78); ALBUMIN 3.6 g/dL (3.4-5.0); ALKALINE PHOSPHATASE 58 U/L (46-116); ASPARTATE AMINOTRANSFERASE 20 U/L (15-37); BILIRUBIN,TOTAL 0.5 mg/dL (0.1-1.0); TOTAL PROTEIN, SERUM 6.9 g/dL (6.4-8.2)
[2018-09-10] MEDS: ACETAMINOPHEN 325 MG TABLET PO PRN (20:01)
[2018-09-10] MEDS: LORazepam 2 MG TABLET PO PRN (20:01)
[2018-09-10] MEDS: HALOPERIDOL 5 MG TABLET PO PRN (20:01)
[2018-09-10 20:46] VITALS: BP 148/80
[2018-09-10] MEDS: ZOLPIDEM TARTRATE 10 MG TABLET PO PRN (21:11)
[2018-09-10] MEDS ORDERED: GuaiFENesin/D-METHORPHAN [SUGAR-FREE] 200-20MG/10 ML SYRUP UDCUP PO PRN (21:45)
[2018-09-10] MEDS ORDERED: PETROLATUM,WHITE 71 GM JELLY TP PRN (21:45)
[2018-09-10] MEDS ORDERED: ACETAMINOPHEN 325 MG TABLET PO PRN (21:45)
[2018-09-10] MEDS ORDERED: DOCUSATE SODIUM 100 MG CAPSULE PO PRN (21:45)
[2018-09-10] MEDS ORDERED: ALBUTEROL SULFATE HFA 90 MCG/PUFF 8 GM INHALER IH PRN (21:45)
[2018-09-10] MEDS ORDERED: LOPERAMIDE HCL 2 MG CAPSULE PO PRN (21:45)
[2018-09-10] MEDS ORDERED: CloNIDine HCL 0.1 MG TABLET PO PRN (21:45)
[2018-09-10] MEDS ORDERED: ONDANSETRON HCL 4 MG TABLET PO PRN (21:45)
[2018-09-10] MEDS ORDERED: MAGNESIUM HYDROXIDE SUSPENSION 30 ML UDCUP PO PRN (21:45)
[2018-09-10] MEDS ORDERED: MAG HYDROX/AL HYDROX/SIMETH ES 30 ML SUSPENSION UDCUP PO PRN (21:45)
[2018-09-11 00:50] VITALS: BP 133/85
[2018-09-11] MEDS: HALOPERIDOL 5 MG TABLET PO PRN ×4 (00:51→16:42)
[2018-09-11] MEDS: LORazepam 2 MG TABLET PO PRN ×4 (00:51→16:42)
[2018-09-11 07:21] LABS: BASOPHILS % (AUTO) 0.4 % (0.0-2.0); EOSINOPHILS % (AUTO) 2.4 % (1.0-6.0); HEMATOCRIT 43.1 % (41-53); HEMOGLOBIN 15.1 g/dL (13.5-17.5); LYMPHOCYTES # (AUTO) 2.9 K/uL (1.0-4.8); LYMPHOCYTES % (AUTO) 38.8 % (22.0-44.0); MEAN CORPUSCULAR HEMOGLOBIN 32.8 pg (26.0-34.0); MEAN CORPUSCULAR HGB CONC 34.9 G/dL (31.0-37.0); MEAN CORPUSCULAR VOLUME 94 fL (80-100); MONOCYTES # (AUTO) 0.6 K/uL (0.1-1.0); MONOCYTES % (AUTO) 8.7 % (2.0-9.0); NEUTROPHILS # (AUTO) 3.7 K/uL (1.8-7.7); NEUTROPHILS % (AUTO) 49.7 % (40.0-70.0); PLATELET COUNT (AUTO) 262 K/uL (150-450); RED BLOOD CELL COUNT(AUTO) 4.59 MIL/uL (4.50-5.90); RED CELL DISTRIBUTION WIDTH 13.9 % (11.5-14.5)
[2018-09-11 07:36] LABS: HEMOGLOBIN A1C 5.5 % (4.5-6.2)
[2018-09-11 07:48] LABS: ALANINE AMINOTRANSFERASE 16 U/L (12-78); ALBUMIN 3.1 g/dL (3.4-5.0); ALKALINE PHOSPHATASE 47 U/L (46-116); ANION GAP 5 mmol/L (8-16); ASPARTATE AMINOTRANSFERASE 14 U/L (15-37); BILIRUBIN,TOTAL 0.3 mg/dL (0.1-1.0); CALCIUM, TOTAL 8.3 mg/dL (8.8-10.5); CARBON DIOXIDE 31 mmol/L (22-29); CHLORIDE 106 mmol/L (98-107); CHOL/HDL RATIO 2.1 (4.2-7.3); CHOLESTEROL 131 mg/dL (131-200); CREATININE 0.86 mg/dL (0.60-1.30); GLOMERULAR FILTR. RATE CALC > 60 mL/min (>60); GLUCOSE,RANDOM 78 mg/dL (70-110); HDL CHOLESTEROL 61 mg/dL (40-60); LDL CHOL (CALC.) 56 mg/dL (0-130); POTASSIUM 4.1 mmol/L (3.5-5.1); SODIUM SERUM 142 mmol/L (136-145); THYROID STIMULATING HORMONE 1.53 uIU/mL (0.36-3.74); TOTAL PROTEIN, SERUM 5.8 g/dL (6.4-8.2); TRIGLYCERIDES 69 mg/dL (15-150); UREA NITROGEN, BLOOD 20 mg/dL (7-18)
[2018-09-11 08:11] VITALS: BP 144/80
[2018-09-11] MEDS: NICOTINE 14 MG/24 HOUR PATCH TD PRN (10:05)
[2018-09-11] MEDS: DIVALPROEX SODIUM 500 MG DR TABLET PO SCH ×2 (12:19→16:42)
[2018-09-11 16:09] VITALS: BP 110/71
[2018-09-11] MEDS: FERROUS SULFATE 325 MG EC TABLET PO SCH ×2 (16:42→20:44)
[2018-09-11] MEDS: RisperiDONE 1 MG TABLET PO SCH (20:44)
[2018-09-11] MEDS: ZOLPIDEM TARTRATE 10 MG TABLET PO PRN (20:45)
[2018-09-12 01:00] VITALS: BP 120/78
[2018-09-12] MEDS: LORazepam 2 MG TABLET PO PRN ×4 (01:06→16:47)
[2018-09-12] MEDS: HALOPERIDOL 5 MG TABLET PO PRN ×2 (01:06→09:33)
[2018-09-12] MEDS: FERROUS SULFATE 325 MG EC TABLET PO SCH ×4 (06:59→20:29)
[2018-09-12] MEDS: FLUoxetine HCL 20 MG CAPSULE PO SCH (08:06)
[2018-09-12] MEDS: OMEPRAZOLE 20 MG CAPSULE PO SCH (08:06)
[2018-09-12] MEDS: RisperiDONE 1 MG TABLET PO SCH ×2 (08:06→20:29)
[2018-09-12] MEDS: DIVALPROEX SODIUM 500 MG DR TABLET PO SCH ×3 (08:06→16:47)
[2018-09-12 08:34] VITALS: BP 134/89
[2018-09-12] MEDS: NICOTINE 14 MG/24 HOUR PATCH TD PRN (09:31)
[2018-09-12] MEDS: IBUPROFEN 400 MG TABLET PO PRN (12:16)
[2018-09-12 13:14] VITALS: BP 128/85
[2018-09-12 16:00] VITALS: BP 128/88
[2018-09-12] MEDS: ZOLPIDEM TARTRATE 10 MG TABLET PO PRN (20:30)
[2018-09-13 04:36] VITALS: BP 122/86
[2018-09-13] MEDS: LORazepam 2 MG TABLET PO PRN ×4 (04:37→18:03)
[2018-09-13] MEDS: HALOPERIDOL 5 MG TABLET PO PRN ×4 (04:37→18:03)
[2018-09-13] MEDS: FERROUS SULFATE 325 MG EC TABLET PO SCH ×4 (07:07→20:25)
[2018-09-13 08:25] VITALS: BP 117/64
[2018-09-13] MEDS: FLUoxetine HCL 20 MG CAPSULE PO SCH (09:01)
[2018-09-13] MEDS: DIVALPROEX SODIUM 500 MG DR TABLET PO SCH ×3 (09:01→16:21)
[2018-09-13] MEDS: RisperiDONE 1 MG TABLET PO SCH ×2 (09:01→20:11)
[2018-09-13] MEDS: OMEPRAZOLE 20 MG CAPSULE PO SCH (09:01)
[2018-09-13] MEDS: NICOTINE 14 MG/24 HOUR PATCH TD PRN (09:24)
[2018-09-13] MEDS: IBUPROFEN 400 MG TABLET PO PRN ×2 (11:47→20:12)
[2018-09-13 16:06] VITALS: BP 115/65
[2018-09-13] MEDS: ZOLPIDEM TARTRATE 10 MG TABLET PO PRN (21:15)
[2018-09-14 05:19] VITALS: BP 120/90
[2018-09-14] MEDS: HALOPERIDOL 5 MG TABLET PO PRN ×3 (05:21→17:32)
[2018-09-14] MEDS: LORazepam 2 MG TABLET PO PRN ×4 (05:21→17:32)
[2018-09-14] MEDS: FERROUS SULFATE 325 MG EC TABLET PO SCH ×4 (06:48→20:22)
[2018-09-14 08:27] VITALS: BP 124/77
[2018-09-14 08:51] VITALS: BP 119/70
[2018-09-14] MEDS: OMEPRAZOLE 20 MG CAPSULE PO SCH (08:54)
[2018-09-14] MEDS: FLUoxetine HCL 20 MG CAPSULE PO SCH (08:54)
[2018-09-14] MEDS: RisperiDONE 1 MG TABLET PO SCH ×2 (08:54→20:22)
[2018-09-14] MEDS: DIVALPROEX SODIUM 500 MG DR TABLET PO SCH ×3 (08:54→16:50)
[2018-09-14] MEDS: NICOTINE 14 MG/24 HOUR PATCH TD PRN (09:29)
[2018-09-14] MEDS: IBUPROFEN 400 MG TABLET PO PRN ×2 (09:29→19:01)
[2018-09-14 15:54] VITALS: BP 122/68
[2018-09-14] MEDS: ACETAMINOPHEN 325 MG TABLET PO PRN (15:56)
[2018-09-14 16:03] VITALS: BP 116/59
[2018-09-14 19:00] VITALS: BP 118/67
[2018-09-14] MEDS: ZOLPIDEM TARTRATE 10 MG TABLET PO PRN (20:00)
[2018-09-15 00:10] VITALS: BP 128/87
[2018-09-15] MEDS: FERROUS SULFATE 325 MG EC TABLET PO SCH ×4 (06:03→20:18)
[2018-09-15] MEDS: LORazepam 2 MG TABLET PO PRN ×3 (06:17→14:33)
[2018-09-15] MEDS: HALOPERIDOL 5 MG TABLET PO PRN ×3 (06:17→14:33)
[2018-09-15 08:27] VITALS: BP 113/66
[2018-09-15] MEDS: RisperiDONE 1 MG TABLET PO SCH ×2 (08:34→20:18)
[2018-09-15] MEDS: OMEPRAZOLE 20 MG CAPSULE PO SCH (08:34)
[2018-09-15] MEDS: DIVALPROEX SODIUM 500 MG DR TABLET PO SCH ×3 (08:34→16:16)
[2018-09-15] MEDS: FLUoxetine HCL 20 MG CAPSULE PO SCH (08:34)
[2018-09-15] MEDS: NICOTINE 14 MG/24 HOUR PATCH TD PRN (10:16)
[2018-09-15 10:17] VITALS: BP 122/71
[2018-09-15] MEDS: IBUPROFEN 400 MG TABLET PO PRN ×2 (10:17→18:45)
[2018-09-15 16:07] VITALS: BP 117/71
[2018-09-15 18:45] VITALS: BP 120/73
[2018-09-15] MEDS: ZOLPIDEM TARTRATE 10 MG TABLET PO PRN (20:19)
[2018-09-16 02:40] VITALS: BP 130/77
[2018-09-16] MEDS: HALOPERIDOL 5 MG TABLET PO PRN ×4 (02:45→18:22)
[2018-09-16] MEDS: FERROUS SULFATE 325 MG EC TABLET PO SCH ×4 (06:29→20:11)
[2018-09-16] MEDS: OMEPRAZOLE 20 MG CAPSULE PO SCH (08:21)
[2018-09-16] MEDS: FLUoxetine HCL 20 MG CAPSULE PO SCH (08:21)
[2018-09-16] MEDS: RisperiDONE 1 MG TABLET PO SCH ×2 (08:21→20:12)
[2018-09-16] MEDS: DIVALPROEX SODIUM 500 MG DR TABLET PO SCH ×3 (08:21→16:02)
[2018-09-16 08:27] VITALS: BP 131/64
[2018-09-16] MEDS ORDERED: FLUoxetine HCL 20 MG CAPSULE PO SCH (09:00)
[2018-09-16] MEDS: LORazepam 2 MG TABLET PO PRN ×3 (09:15→18:22)
[2018-09-16] MEDS: NICOTINE 14 MG/24 HOUR PATCH TD PRN (11:33)
[2018-09-16 13:30] VITALS: BP 133/91
[2018-09-16] MEDS: IBUPROFEN 400 MG TABLET PO PRN (13:32)
[2018-09-16 16:03] VITALS: BP 132/84
[2018-09-16] MEDS: ZOLPIDEM TARTRATE 10 MG TABLET PO PRN (20:35)
[2018-09-17 01:43] VITALS: BP 131/70
[2018-09-17] MEDS: LORazepam 2 MG TABLET PO PRN ×5 (02:00→17:26)
[2018-09-17] MEDS: FERROUS SULFATE 325 MG EC TABLET PO SCH ×5 (06:54→21:53)
[2018-09-17 08:18] VITALS: BP 126/73
[2018-09-17] MEDS: FLUoxetine HCL 20 MG CAPSULE PO SCH (08:59)
[2018-09-17] MEDS: RisperiDONE 1 MG TABLET PO SCH ×2 (08:59→19:56)
[2018-09-17] MEDS: DIVALPROEX SODIUM 500 MG DR TABLET PO SCH ×3 (08:59→15:58)
[2018-09-17] MEDS: OMEPRAZOLE 20 MG CAPSULE PO SCH (08:59)
[2018-09-17] MEDS: NICOTINE 14 MG/24 HOUR PATCH TD PRN (09:01)
[2018-09-17 10:15] VITALS: BP 121/75
[2018-09-17] MEDS: IBUPROFEN 400 MG TABLET PO PRN ×2 (10:17→17:51)
[2018-09-17] MEDS: HALOPERIDOL 5 MG TABLET PO PRN (11:26)
[2018-09-17 16:16] VITALS: BP 100/62
[2018-09-17] MEDS: ZOLPIDEM TARTRATE 10 MG TABLET PO PRN (20:06)
[2018-09-18] VITALS (11 sets, daily range): BP systolic 117–156; BP diastolic 75–91
[2018-09-18] MEDS: HALOPERIDOL 5 MG TABLET PO PRN ×4 (02:15→16:42)
[2018-09-18] MEDS: LORazepam 2 MG TABLET PO PRN ×4 (02:15→16:42)
[2018-09-18] MEDS: IBUPROFEN 400 MG TABLET PO PRN ×2 (03:49→13:14)
[2018-09-18] MEDS: DIVALPROEX SODIUM 500 MG DR TABLET PO SCH ×3 (08:33→16:41)
[2018-09-18] MEDS: FLUoxetine HCL 20 MG CAPSULE PO SCH (08:33)
[2018-09-18] MEDS: RisperiDONE 1 MG TABLET PO SCH ×2 (08:33→21:00)
[2018-09-18] MEDS: OMEPRAZOLE 20 MG CAPSULE PO SCH (08:33)
[2018-09-18] MEDS: NICOTINE 14 MG/24 HOUR PATCH TD PRN (08:38)
[2018-09-18] MEDS: FERROUS SULFATE 325 MG EC TABLET PO SCH ×3 (11:45→21:00)
[2018-09-18] MEDS: ACETAMINOPHEN 325 MG TABLET PO PRN (16:42)
[2018-09-19 00:23] VITALS: BP 135/89
[2018-09-19] MEDS: ZOLPIDEM TARTRATE 10 MG TABLET PO PRN (00:27)
[2018-09-19 00:45] VITALS: BP 135/93
[2018-09-19 02:56] VITALS: BP 141/89
[2018-09-19] MEDS: LORazepam 2 MG TABLET PO PRN ×3 (03:02→13:07)
[2018-09-19] MEDS: HALOPERIDOL 5 MG TABLET PO PRN ×3 (03:02→13:07)
[2018-09-19] MEDS: IBUPROFEN 400 MG TABLET PO PRN (03:03)
[2018-09-19] MEDS ORDERED: TraMADol HCL 50 MG TABLET PO PRN (03:45)
[2018-09-19] MEDS: FERROUS SULFATE 325 MG EC TABLET PO SCH ×3 (06:51→16:26)
[2018-09-19 08:07] VITALS: BP 126/72
[2018-09-19 08:26] VITALS: BP 126/72
[2018-09-19] MEDS: FLUoxetine HCL 20 MG CAPSULE PO SCH (08:58)
[2018-09-19] MEDS: RisperiDONE 1 MG TABLET PO SCH (08:58)
[2018-09-19] MEDS: OMEPRAZOLE 20 MG CAPSULE PO SCH (08:59)
[2018-09-19] MEDS: DIVALPROEX SODIUM 500 MG DR TABLET PO SCH ×3 (08:59→16:25)
[2018-09-19] MEDS ORDERED: FERR-89 PO (15:50)
[2018-09-19] MEDS ORDERED: OMEP20 PO (15:50)
[2018-09-19] MEDS ORDERED: FLUO-191 PO (15:50)
[2018-09-19 16:19] VITALS: BP 128/81
[2018-09-19] MEDS ORDERED: DIVA-78 PO (17:10)
== END 2018-09-19 18:55 | disposition home or self-care (01) | DRG 750 ==
LOC: EMS 14:41 → UNDOADMIN 19:31 → B2S 19:31
PROVIDERS: ADMIT Psychiatry & Neurology Psychiatry; ATTEND Psychiatry & Neurology Psychiatry
DX: F25.1 Schizoaffective disorder, depressive type (principal); R45.851 Suicidal ideations; F41.9 Anxiety disorder, unspecified; G89.29 Other chronic pain; K21.9 Gastro-esophageal reflux disease without esophagitis; F17.210 Nicotine dependence, cigarettes, uncomplicated; D64.9 Anemia, unspecified; F12.10 Cannabis abuse, uncomplicated; F32.9 Major depressive disorder, single episode, unspecified; M54.9 Dorsalgia, unspecified; R31.9 Hematuria, unspecified; Z88.0 Allergy status to penicillin; Z91.5 Personal history of self-harm; Z71.6 Tobacco abuse counseling; Z71.51 Drug abuse counseling and surveillance of drug abuser; Z88.6 Allergy status to analgesic agent; Z88.1 Allergy status to other antibiotic agents; Z88.8 Allergy status to other drugs, medicaments and biological substances; Z79.899 Other long term (current) drug therapy
CPT/HCPCS: 83036; 84439; 84443; 87081; G0480

== ENCOUNTER 2018-09-18 20:47 | Emergency (ER) | payer MEDICAID ==
[~2018-09-18] VITALS: Ht 175.3 cm; Wt 70.5 kg
[2018-09-18] MEDS ORDERED: TraMADol HCL 50 MG TABLET PO ONE (21:45)
[2018-09-18] MEDS ORDERED: CARISOPRODOL 350 MG TABLET PO ONE (21:45)
[2018-09-18 23:08] VITALS: BP 133/70
[2018-09-19] MEDS ORDERED: OMEP20 PO (15:50)
[2018-09-19] MEDS ORDERED: FLUO-191 PO (15:50)
[2018-09-19] MEDS ORDERED: FERR-89 PO (15:50)
[2018-09-19] MEDS ORDERED: DIVA-78 PO (17:10)
== END 2018-09-18 23:41 | disposition home or self-care (01) ==
LOC: EMS 20:50
DX: M54.6 Pain in thoracic spine (principal); G25.9 Extrapyramidal and movement disorder, unspecified; G89.29 Other chronic pain; F32.9 Major depressive disorder, single episode, unspecified; F17.210 Nicotine dependence, cigarettes, uncomplicated; Z88.6 Allergy status to analgesic agent; Z88.1 Allergy status to other antibiotic agents; Z88.0 Allergy status to penicillin
CPT/HCPCS: 72070; 99406

== ENCOUNTER 2018-10-04 11:02 | Emergency (ER) | payer MEDICAID ==
[~2018-10-04] VITALS: Ht 175.3 cm; Wt 70.5 kg
[~2018-10-04 11:02] MED LIST changes: +DIVA-78 PO; -DIVA500T52 PO; +FERR-89 PO; +FLUO-191 PO; +OMEP20 PO
[2018-10-04] MEDS ORDERED: GABAPENTIN 100 MG CAPSULE PO ONE (15:15)
[2018-10-04 16:46] VITALS: BP 115/72
== END 2018-10-04 16:52 | disposition home or self-care (01) ==
LOC: EMS 11:03
DX: G89.29 Other chronic pain (principal); M25.551 Pain in right hip; F32.9 Major depressive disorder, single episode, unspecified; F20.9 Schizophrenia, unspecified; F17.210 Nicotine dependence, cigarettes, uncomplicated; Z88.0 Allergy status to penicillin; Z88.1 Allergy status to other antibiotic agents; Z88.6 Allergy status to analgesic agent; Z79.899 Other long term (current) drug therapy

== ENCOUNTER 2018-10-11 14:57 | Inpatient (IN) | payer MEDICAID ==
[~2018-10-11] VITALS: Ht 175.3 cm; Wt 68.0 kg
[2018-10-11 16:43] LABS: BASOPHILS % (AUTO) 0.4 % (0.0-2.0); EOSINOPHILS % (AUTO) 0.1 % (1.0-6.0); HEMATOCRIT 42.8 % (41-53); HEMOGLOBIN 14.2 g/dL (13.5-17.5); LYMPHOCYTES # (AUTO) 1.9 K/uL (1.0-4.8); LYMPHOCYTES % (AUTO) 19.3 % (22.0-44.0); MEAN CORPUSCULAR HEMOGLOBIN 31.2 pg (26.0-34.0); MEAN CORPUSCULAR HGB CONC 33.2 G/dL (31.0-37.0); MEAN CORPUSCULAR VOLUME 94 fL (80-100); MONOCYTES # (AUTO) 0.7 K/uL (0.1-1.0); MONOCYTES % (AUTO) 7.4 % (2.0-9.0); NEUTROPHILS # (AUTO) 7.2 K/uL (1.8-7.7); NEUTROPHILS % (AUTO) 72.8 % (40.0-70.0); PLATELET COUNT (AUTO) 331 K/uL (150-450); RED BLOOD CELL COUNT(AUTO) 4.56 MIL/uL (4.50-5.90); RED CELL DISTRIBUTION WIDTH 14.6 % (11.5-14.5)
[2018-10-11 16:53] LABS: ANION GAP 11 mmol/L (8-16); CALCIUM, TOTAL 8.9 mg/dL (8.8-10.5); CARBON DIOXIDE 27 mmol/L (22-29); CHLORIDE 104 mmol/L (98-107); CREATININE 0.74 mg/dL (0.60-1.30); GLOMERULAR FILTR. RATE CALC > 60 mL/min (>60); GLUCOSE,RANDOM 86 mg/dL (70-110); POTASSIUM 4.2 mmol/L (3.5-5.1); SODIUM SERUM 142 mmol/L (136-145); UREA NITROGEN, BLOOD 11 mg/dL (7-18)
[2018-10-11 17:00] LABS: ALANINE AMINOTRANSFERASE 7 U/L (12-78); ALBUMIN 3.2 g/dL (3.4-5.0); ALKALINE PHOSPHATASE 51 U/L (46-116); ASPARTATE AMINOTRANSFERASE 14 U/L (15-37); BILIRUBIN,TOTAL 0.4 mg/dL (0.1-1.0); TOTAL PROTEIN, SERUM 6.2 g/dL (6.4-8.2)
[2018-10-11] MEDS ORDERED: LORazepam 2 MG TABLET PO ONE (18:00)
[2018-10-11] MEDS ORDERED: SULFAMETHOX/TRIMETH DS 800-160 MG/TABLET PO ONE (18:00)
[2018-10-11] MEDS ORDERED: HALOPERIDOL 5 MG TABLET PO ONE (18:00)
[2018-10-11 18:21] LABS: APPEARANCE,URINE CLOUDY (CLEAR); BILIRUBIN,URINE NEGATIVE (NEGATIVE); GLUCOSE, URINE (UA) NEGATIVE (NEGATIVE); KETONES,URINE TRACE mg/dL (NEGATIVE); LEUKOCYTE ESTERASE ,URINE TRACE (NEGATIVE); NITRATE,URINE NEGATIVE (NEGATIVE); OCCULT BLOOD,URINE SMALL (NEGATIVE); PH,URINE 6.5 (5.0-8.0); PROTEIN,URINE POS 1+ (NEGATIVE)
[2018-10-11 18:22] LABS: AMPHET/METH SCREEN,URINE NEGATIVE (NEGATIVE); BARBITURATE SCREEN, URINE NEGATIVE (NEGATIVE); BENZODIAZEPINES SCREEN,URINE NEGATIVE (NEGATIVE); CANNABINOID SCREEN,URINE POSITIVE (NEGATIVE); COCAINE SCREEN,URINE NEGATIVE (NEGATIVE); METHADONE SCREEN, URINE NEGATIVE (NEGATIVE); OPIATE SCREEN,URINE NEGATIVE (NEGATIVE)
[2018-10-11 18:23] LABS: PHENCYCLIDINE SCREEN,URINE NEGATIVE (NEGATIVE)
[2018-10-11 18:34] LABS: BACTERIA,URINE Few /HPF (None Seen); MUCUS,URINE Few LPF (None Seen); SQUAMOUS EPITHELIAL CELL,UR Rare /LPF (None Seen)
[2018-10-11] MEDS ORDERED: LOPERAMIDE HCL 2 MG CAPSULE PO PRN (19:45)
[2018-10-11] MEDS ORDERED: GuaiFENesin/D-METHORPHAN [SUGAR-FREE] 200-20MG/10 ML SYRUP UDCUP PO PRN (19:45)
[2018-10-11] MEDS ORDERED: ALBUTEROL SULFATE HFA 90 MCG/PUFF 8 GM INHALER IH PRN (19:45)
[2018-10-11] MEDS ORDERED: ONDANSETRON HCL 4 MG TABLET PO PRN (19:45)
[2018-10-11] MEDS ORDERED: PETROLATUM,WHITE 71 GM JELLY TP PRN (19:45)
[2018-10-11] MEDS ORDERED: MAGNESIUM HYDROXIDE SUSPENSION 30 ML UDCUP PO PRN (19:45)
[2018-10-11] MEDS ORDERED: DOCUSATE SODIUM 100 MG CAPSULE PO PRN (19:45)
[2018-10-11] MEDS ORDERED: CloNIDine HCL 0.1 MG TABLET PO PRN (19:45)
[2018-10-11] MEDS ORDERED: MAG HYDROX/AL HYDROX/SIMETH ES 30 ML SUSPENSION UDCUP PO PRN (19:45)
[2018-10-11 19:53] VITALS: BP 132/80
[2018-10-11] MEDS: ACETAMINOPHEN 325 MG TABLET PO PRN (19:54)
[2018-10-11] MEDS: ZOLPIDEM TARTRATE 10 MG TABLET PO PRN (20:01)
[2018-10-12 06:26] VITALS: BP 127/79
[2018-10-12 07:19] LABS: BASOPHILS % (AUTO) 0.3 % (0.0-2.0); EOSINOPHILS % (AUTO) 1.5 % (1.0-6.0); HEMATOCRIT 42.6 % (41-53); HEMOGLOBIN 14.4 g/dL (13.5-17.5); LYMPHOCYTES # (AUTO) 1.9 K/uL (1.0-4.8); LYMPHOCYTES % (AUTO) 26.7 % (22.0-44.0); MEAN CORPUSCULAR HEMOGLOBIN 32.1 pg (26.0-34.0); MEAN CORPUSCULAR HGB CONC 33.8 G/dL (31.0-37.0); MEAN CORPUSCULAR VOLUME 95 fL (80-100); MONOCYTES # (AUTO) 0.7 K/uL (0.1-1.0); MONOCYTES % (AUTO) 10.4 % (2.0-9.0); NEUTROPHILS # (AUTO) 4.3 K/uL (1.8-7.7); NEUTROPHILS % (AUTO) 61.1 % (40.0-70.0); PLATELET COUNT (AUTO) 299 K/uL (150-450); RED BLOOD CELL COUNT(AUTO) 4.49 MIL/uL (4.50-5.90); RED CELL DISTRIBUTION WIDTH 14.5 % (11.5-14.5)
[2018-10-12 07:49] LABS: ALANINE AMINOTRANSFERASE 9 U/L (12-78); ALBUMIN 3.1 g/dL (3.4-5.0); ALKALINE PHOSPHATASE 48 U/L (46-116); ANION GAP 6 mmol/L (8-16); ASPARTATE AMINOTRANSFERASE 13 U/L (15-37); BILIRUBIN,TOTAL 0.4 mg/dL (0.1-1.0); CALCIUM, TOTAL 8.9 mg/dL (8.8-10.5); CARBON DIOXIDE 31 mmol/L (22-29); CHLORIDE 105 mmol/L (98-107); CHOL/HDL RATIO 2.6 (4.2-7.3); CHOLESTEROL 144 mg/dL (131-200); CREATININE 0.86 mg/dL (0.60-1.30); FREE T4 (FREE THYROXINE) 0.76 ng/dL (0.76-1.46); GLOMERULAR FILTR. RATE CALC > 60 mL/min (>60); GLUCOSE,RANDOM 75 mg/dL (70-110); HDL CHOLESTEROL 55 mg/dL (40-60); LDL CHOL (CALC.) 76 mg/dL (0-130); POTASSIUM 4.7 mmol/L (3.5-5.1); SODIUM SERUM 142 mmol/L (136-145); THYROID STIMULATING HORMONE 0.58 uIU/mL (0.36-3.74); TOTAL PROTEIN, SERUM 5.9 g/dL (6.4-8.2); TRIGLYCERIDES 67 mg/dL (15-150); UREA NITROGEN, BLOOD 14 mg/dL (7-18)
[2018-10-12 07:53] LABS: HEMOGLOBIN A1C 5.6 % (4.5-6.2)
[2018-10-12 08:39] VITALS: BP 106/65
[2018-10-12 08:45] VITALS: BP 101/64
[2018-10-12] MEDS: LORazepam 2 MG TABLET PO PRN ×3 (10:25→19:26)
[2018-10-12] MEDS: ACETAMINOPHEN 325 MG TABLET PO PRN (10:25)
[2018-10-12] MEDS: HALOPERIDOL 5 MG TABLET PO PRN ×3 (10:25→19:26)
[2018-10-12 10:26] VITALS: BP 110/80
[2018-10-12] MEDS: FERROUS SULFATE 325 MG EC TABLET PO SCH ×2 (12:17→16:10)
[2018-10-12] MEDS: NICOTINE 14 MG/24 HOUR PATCH TD PRN (14:54)
[2018-10-12] MEDS: FAMOTIDINE 20 MG TABLET PO SCH (16:10)
[2018-10-12] MEDS: SULFAMETHOX/TRIMETH DS 800-160 MG/TABLET PO SCH (16:11)
[2018-10-12] MEDS: CIPROFLOXACIN HCL 500 MG TABLET PO SCH (16:11)
[2018-10-12 16:21] VITALS: BP 110/64
[2018-10-12] MEDS ORDERED: CEPHALEXIN MONOHYDRATE 500 MG CAPSULE PO SCH (17:00)
[2018-10-12] MEDS: RisperiDONE 1 MG TABLET PO SCH (20:45)
[2018-10-12] MEDS: ZOLPIDEM TARTRATE 10 MG TABLET PO PRN (20:46)
[2018-10-13 00:54] VITALS: BP 120/72
[2018-10-13] MEDS: FERROUS SULFATE 325 MG EC TABLET PO SCH ×3 (07:13→17:35)
[2018-10-13] MEDS: RisperiDONE 1 MG TABLET PO SCH ×2 (08:30→20:09)
[2018-10-13] MEDS: FAMOTIDINE 20 MG TABLET PO SCH ×2 (08:31→17:36)
[2018-10-13] MEDS: DIVALPROEX SODIUM 500 MG DR TABLET PO SCH ×3 (08:31→17:36)
[2018-10-13] MEDS: SULFAMETHOX/TRIMETH DS 800-160 MG/TABLET PO SCH ×2 (08:31→17:35)
[2018-10-13] MEDS: CIPROFLOXACIN HCL 500 MG TABLET PO SCH ×2 (08:31→17:35)
[2018-10-13] MEDS: FLUoxetine HCL 20 MG CAPSULE PO SCH (08:31)
[2018-10-13] MEDS: LORazepam 2 MG TABLET PO PRN ×3 (08:32→17:35)
[2018-10-13] MEDS: HALOPERIDOL 5 MG TABLET PO PRN ×2 (08:32→13:00)
[2018-10-13 08:40] VITALS: BP 123/78
[2018-10-13] MEDS: NICOTINE 14 MG/24 HOUR PATCH TD PRN (13:02)
[2018-10-13 16:03] VITALS: BP 105/63
[2018-10-13] MEDS: ACETAMINOPHEN 325 MG TABLET PO PRN (17:35)
[2018-10-13] MEDS: ZOLPIDEM TARTRATE 10 MG TABLET PO PRN (20:09)
[2018-10-14 06:10] VITALS: BP 102/66
[2018-10-14] MEDS: FERROUS SULFATE 325 MG EC TABLET PO SCH ×3 (07:05→17:08)
[2018-10-14] MEDS: SULFAMETHOX/TRIMETH DS 800-160 MG/TABLET PO SCH ×2 (08:22→17:08)
[2018-10-14] MEDS: CIPROFLOXACIN HCL 500 MG TABLET PO SCH ×2 (08:22→17:09)
[2018-10-14] MEDS: DIVALPROEX SODIUM 500 MG DR TABLET PO SCH ×3 (08:22→17:08)
[2018-10-14] MEDS: FLUoxetine HCL 20 MG CAPSULE PO SCH (08:22)
[2018-10-14] MEDS: RisperiDONE 1 MG TABLET PO SCH ×2 (08:22→20:43)
[2018-10-14] MEDS: FAMOTIDINE 20 MG TABLET PO SCH ×2 (08:23→17:08)
[2018-10-14] MEDS: LORazepam 2 MG TABLET PO PRN ×4 (08:34→22:06)
[2018-10-14] MEDS: NICOTINE 14 MG/24 HOUR PATCH TD PRN (09:00)
[2018-10-14 09:05] VITALS: BP 105/63
[2018-10-14] MEDS: ACETAMINOPHEN 325 MG TABLET PO PRN ×2 (09:05→17:09)
[2018-10-14] MEDS: HALOPERIDOL 5 MG TABLET PO PRN ×3 (12:46→22:07)
[2018-10-14 17:36] VITALS: BP 117/60
[2018-10-14] MEDS: ZOLPIDEM TARTRATE 10 MG TABLET PO PRN (20:43)
[2018-10-15 05:46] VITALS: BP 121/73
[2018-10-15] MEDS: FERROUS SULFATE 325 MG EC TABLET PO SCH ×3 (07:01→17:09)
[2018-10-15 08:10] VITALS: BP 117/77
[2018-10-15] MEDS: DIVALPROEX SODIUM 500 MG DR TABLET PO SCH ×3 (08:10→17:09)
[2018-10-15] MEDS: FAMOTIDINE 20 MG TABLET PO SCH ×2 (08:10→17:09)
[2018-10-15] MEDS: SULFAMETHOX/TRIMETH DS 800-160 MG/TABLET PO SCH ×2 (08:10→17:10)
[2018-10-15] MEDS: FLUoxetine HCL 20 MG CAPSULE PO SCH (08:10)
[2018-10-15] MEDS: RisperiDONE 1 MG TABLET PO SCH ×2 (08:10→20:20)
[2018-10-15] MEDS: CIPROFLOXACIN HCL 500 MG TABLET PO SCH ×2 (08:10→17:10)
[2018-10-15] MEDS: ACETAMINOPHEN 325 MG TABLET PO PRN ×2 (08:13→17:09)
[2018-10-15] MEDS: NICOTINE 14 MG/24 HOUR PATCH TD PRN (08:18)
[2018-10-15] MEDS: LORazepam 2 MG TABLET PO PRN ×3 (08:20→17:12)
[2018-10-15] MEDS: HALOPERIDOL 5 MG TABLET PO PRN ×2 (12:30→17:12)
[2018-10-15 16:14] VITALS: BP 109/69
[2018-10-15] MEDS: ZOLPIDEM TARTRATE 10 MG TABLET PO PRN (20:20)
[2018-10-16] MEDS: LORazepam 2 MG TABLET PO PRN ×4 (06:23→18:49)
[2018-10-16] MEDS: HALOPERIDOL 5 MG TABLET PO PRN ×4 (06:23→18:48)
[2018-10-16 06:43] VITALS: BP 117/93
[2018-10-16] MEDS: FERROUS SULFATE 325 MG EC TABLET PO SCH ×3 (07:02→16:35)
[2018-10-16 08:28] VITALS: BP 128/82
[2018-10-16 08:33] VITALS: BP 128/82
[2018-10-16 08:38] VITALS: BP 128/82
[2018-10-16] MEDS: CIPROFLOXACIN HCL 500 MG TABLET PO SCH ×2 (10:20→16:35)
[2018-10-16] MEDS: SULFAMETHOX/TRIMETH DS 800-160 MG/TABLET PO SCH ×2 (10:21→16:35)
[2018-10-16] MEDS: DIVALPROEX SODIUM 500 MG DR TABLET PO SCH ×3 (10:21→16:35)
[2018-10-16] MEDS: FAMOTIDINE 20 MG TABLET PO SCH ×2 (10:21→16:35)
[2018-10-16] MEDS: FLUoxetine HCL 20 MG CAPSULE PO SCH (10:21)
[2018-10-16] MEDS: RisperiDONE 1 MG TABLET PO SCH ×2 (10:21→21:21)
[2018-10-16] MEDS: ACETAMINOPHEN 325 MG TABLET PO PRN ×2 (10:31→18:49)
[2018-10-16] MEDS: NICOTINE 14 MG/24 HOUR PATCH TD PRN (10:35)
[2018-10-16 16:22] VITALS: BP 116/65
[2018-10-16] MEDS: ZOLPIDEM TARTRATE 10 MG TABLET PO PRN (21:31)
[2018-10-17 05:45] VITALS: BP 126/80
[2018-10-17] MEDS: FERROUS SULFATE 325 MG EC TABLET PO SCH ×3 (06:03→16:19)
[2018-10-17] MEDS: HALOPERIDOL 5 MG TABLET PO PRN ×4 (06:14→18:40)
[2018-10-17] MEDS: LORazepam 2 MG TABLET PO PRN ×4 (06:14→18:40)
[2018-10-17] MEDS: ACETAMINOPHEN 325 MG TABLET PO PRN ×2 (06:15→16:56)
[2018-10-17 08:34] VITALS: BP 113/68
[2018-10-17] MEDS: FAMOTIDINE 20 MG TABLET PO SCH ×2 (08:34→16:19)
[2018-10-17] MEDS: RisperiDONE 1 MG TABLET PO SCH ×2 (08:34→20:24)
[2018-10-17] MEDS: CIPROFLOXACIN HCL 500 MG TABLET PO SCH ×2 (08:34→16:19)
[2018-10-17] MEDS: SULFAMETHOX/TRIMETH DS 800-160 MG/TABLET PO SCH ×2 (08:34→16:19)
[2018-10-17] MEDS: FLUoxetine HCL 20 MG CAPSULE PO SCH (08:34)
[2018-10-17] MEDS: DIVALPROEX SODIUM 500 MG DR TABLET PO SCH ×3 (08:34→16:19)
[2018-10-17] MEDS: NICOTINE 14 MG/24 HOUR PATCH TD PRN (08:35)
[2018-10-17 16:21] VITALS: BP 111/60
[2018-10-17] MEDS: ZOLPIDEM TARTRATE 10 MG TABLET PO PRN (20:24)
[2018-10-18 00:35] VITALS: BP 103/62
[2018-10-18] MEDS: FERROUS SULFATE 325 MG EC TABLET PO SCH ×3 (06:51→16:51)
[2018-10-18] MEDS: LORazepam 2 MG TABLET PO PRN ×3 (07:26→16:03)
[2018-10-18] MEDS: HALOPERIDOL 5 MG TABLET PO PRN ×3 (07:26→16:03)
[2018-10-18 08:41] VITALS: BP 124/66
[2018-10-18] MEDS: DIVALPROEX SODIUM 500 MG DR TABLET PO SCH ×3 (08:51→16:03)
[2018-10-18] MEDS: FLUoxetine HCL 20 MG CAPSULE PO SCH (08:51)
[2018-10-18] MEDS: RisperiDONE 1 MG TABLET PO SCH ×2 (08:51→20:00)
[2018-10-18] MEDS: CIPROFLOXACIN HCL 500 MG TABLET PO SCH ×2 (08:51→16:03)
[2018-10-18] MEDS: ACETAMINOPHEN 325 MG TABLET PO PRN ×2 (08:52→20:01)
[2018-10-18] MEDS: NICOTINE 14 MG/24 HOUR PATCH TD PRN (08:53)
[2018-10-18] MEDS: FAMOTIDINE 20 MG TABLET PO SCH (16:04)
[2018-10-18 16:18] VITALS: BP 101/66
[2018-10-18 19:56] VITALS: BP 111/75
[2018-10-18] MEDS: ZOLPIDEM TARTRATE 10 MG TABLET PO PRN (20:00)
[2018-10-19 06:24] VITALS: BP 114/74
[2018-10-19] MEDS: LORazepam 2 MG TABLET PO PRN ×3 (06:32→14:39)
[2018-10-19] MEDS: HALOPERIDOL 5 MG TABLET PO PRN ×3 (06:32→14:39)
[2018-10-19] MEDS: FAMOTIDINE 20 MG TABLET PO SCH ×2 (06:51→16:30)
[2018-10-19] MEDS: FERROUS SULFATE 325 MG EC TABLET PO SCH ×3 (07:07→16:56)
[2018-10-19] MEDS: RisperiDONE 1 MG TABLET PO SCH ×2 (08:29→20:05)
[2018-10-19] MEDS: FLUoxetine HCL 20 MG CAPSULE PO SCH (08:29)
[2018-10-19] MEDS: CIPROFLOXACIN HCL 500 MG TABLET PO SCH (08:29)
[2018-10-19] MEDS: DIVALPROEX SODIUM 500 MG DR TABLET PO SCH ×3 (08:29→16:56)
[2018-10-19] MEDS: NICOTINE 14 MG/24 HOUR PATCH TD PRN (08:30)
[2018-10-19 08:45] VITALS: BP 120/62
[2018-10-19] MEDS: ACETAMINOPHEN 325 MG TABLET PO PRN ×2 (08:49→17:05)
[2018-10-19 08:54] VITALS: BP 120/62
[2018-10-19 16:40] VITALS: BP 106/75
[2018-10-19 18:47] VITALS: BP 113/77
[2018-10-19] MEDS: TraMADol HCL 50 MG TABLET PO PRN (18:47)
[2018-10-19] MEDS: ZOLPIDEM TARTRATE 10 MG TABLET PO PRN (20:12)
[2018-10-20 01:10] VITALS: BP 130/80
[2018-10-20] MEDS: LORazepam 2 MG TABLET PO PRN ×4 (01:19→17:31)
[2018-10-20] MEDS: HALOPERIDOL 5 MG TABLET PO PRN ×3 (01:20→17:31)
[2018-10-20 05:40] VITALS: BP 124/82
[2018-10-20] MEDS: TraMADol HCL 50 MG TABLET PO PRN ×2 (05:49→14:04)
[2018-10-20] MEDS: FERROUS SULFATE 325 MG EC TABLET PO SCH ×3 (06:44→17:13)
[2018-10-20] MEDS: FAMOTIDINE 20 MG TABLET PO SCH ×2 (06:44→16:15)
[2018-10-20 08:26] VITALS: BP 100/59
[2018-10-20] MEDS: RisperiDONE 1 MG TABLET PO SCH ×2 (09:27→20:38)
[2018-10-20] MEDS: DIVALPROEX SODIUM 500 MG DR TABLET PO SCH ×3 (09:27→16:15)
[2018-10-20] MEDS: FLUoxetine HCL 20 MG CAPSULE PO SCH (09:28)
[2018-10-20 13:55] VITALS: BP 115/82
[2018-10-20 16:21] VITALS: BP 112/61
[2018-10-20] MEDS: ZOLPIDEM TARTRATE 10 MG TABLET PO PRN (21:32)
[2018-10-21 03:40] VITALS: BP 113/80
[2018-10-21] MEDS: TraMADol HCL 50 MG TABLET PO PRN ×3 (03:48→20:59)
[2018-10-21] MEDS: FERROUS SULFATE 325 MG EC TABLET PO SCH ×3 (06:31→17:13)
[2018-10-21] MEDS: FAMOTIDINE 20 MG TABLET PO SCH ×2 (06:31→17:12)
[2018-10-21] MEDS: LORazepam 2 MG TABLET PO PRN ×3 (07:16→17:24)
[2018-10-21] MEDS: HALOPERIDOL 5 MG TABLET PO PRN ×2 (07:16→12:02)
[2018-10-21 09:21] VITALS: BP 110/71
[2018-10-21] MEDS: FLUoxetine HCL 20 MG CAPSULE PO SCH (10:14)
[2018-10-21] MEDS: RisperiDONE 1 MG TABLET PO SCH ×2 (10:14→20:00)
[2018-10-21] MEDS: NICOTINE 14 MG/24 HOUR PATCH TD PRN (10:16)
[2018-10-21] MEDS: DIVALPROEX SODIUM 500 MG DR TABLET PO SCH ×3 (11:05→17:12)
[2018-10-21 16:54] VITALS: BP 113/78
[2018-10-21] MEDS: ZOLPIDEM TARTRATE 10 MG TABLET PO PRN (20:00)
[2018-10-21 20:59] VITALS: BP 112/78
[2018-10-22] VITALS (7 sets, daily range): BP systolic 101–128; BP diastolic 60–86
[2018-10-22] MEDS: HALOPERIDOL 5 MG TABLET PO PRN ×3 (03:30→17:19)
[2018-10-22] MEDS: LORazepam 2 MG TABLET PO PRN ×3 (03:30→17:19)
[2018-10-22] MEDS: TraMADol HCL 50 MG TABLET PO PRN ×3 (06:26→23:18)
[2018-10-22] MEDS: FERROUS SULFATE 325 MG EC TABLET PO SCH ×3 (06:55→16:54)
[2018-10-22] MEDS: FAMOTIDINE 20 MG TABLET PO SCH ×2 (06:55→16:53)
[2018-10-22] MEDS: RisperiDONE 1 MG TABLET PO SCH ×2 (08:43→20:36)
[2018-10-22] MEDS: DIVALPROEX SODIUM 500 MG DR TABLET PO SCH ×3 (08:43→16:54)
[2018-10-22] MEDS: FLUoxetine HCL 20 MG CAPSULE PO SCH (08:43)
[2018-10-22] MEDS: ZOLPIDEM TARTRATE 10 MG TABLET PO PRN (20:04)
[2018-10-23 03:29] VITALS: BP 116/80
[2018-10-23] MEDS: LORazepam 2 MG TABLET PO PRN ×3 (03:31→14:33)
[2018-10-23] MEDS: FERROUS SULFATE 325 MG EC TABLET PO SCH ×3 (06:02→16:43)
[2018-10-23] MEDS: FAMOTIDINE 20 MG TABLET PO SCH ×2 (06:26→16:43)
[2018-10-23 08:40] VITALS: BP 115/85
[2018-10-23] MEDS: HALOPERIDOL 5 MG TABLET PO PRN ×2 (09:00→14:33)
[2018-10-23] MEDS: FLUoxetine HCL 20 MG CAPSULE PO SCH (09:00)
[2018-10-23] MEDS: RisperiDONE 1 MG TABLET PO SCH ×2 (09:00→20:43)
[2018-10-23] MEDS: TraMADol HCL 50 MG TABLET PO PRN ×2 (09:00→16:43)
[2018-10-23] MEDS: DIVALPROEX SODIUM 500 MG DR TABLET PO SCH ×3 (09:00→16:43)
[2018-10-23 09:45] VITALS: BP 112/87
[2018-10-23] MEDS: NICOTINE 14 MG/24 HOUR PATCH TD PRN (14:33)
[2018-10-23 16:12] VITALS: BP 118/77
[2018-10-23] MEDS: ZOLPIDEM TARTRATE 10 MG TABLET PO PRN (20:43)
[2018-10-24] MEDS: LORazepam 2 MG TABLET PO PRN ×3 (02:08→10:52)
[2018-10-24] MEDS: HALOPERIDOL 5 MG TABLET PO PRN ×3 (02:08→10:52)
[2018-10-24] MEDS: TraMADol HCL 50 MG TABLET PO PRN ×2 (02:09→10:06)
[2018-10-24 02:12] VITALS: BP 103/62
[2018-10-24] MEDS: FAMOTIDINE 20 MG TABLET PO SCH (06:39)
[2018-10-24] MEDS: FERROUS SULFATE 325 MG EC TABLET PO SCH ×2 (06:39→13:31)
[2018-10-24 08:34] VITALS: BP 127/68
[2018-10-24] MEDS: FLUoxetine HCL 20 MG CAPSULE PO SCH (08:48)
[2018-10-24] MEDS: DIVALPROEX SODIUM 500 MG DR TABLET PO SCH ×2 (08:48→13:32)
[2018-10-24] MEDS: RisperiDONE 1 MG TABLET PO SCH (08:48)
[2018-10-24 08:55] VITALS: BP 118/65
[2018-10-24] MEDS ORDERED: FAMO20 PO (09:53)
[2018-10-24] MEDS: NICOTINE 14 MG/24 HOUR PATCH TD PRN (10:07)
== END 2018-10-24 13:00 | disposition home or self-care (01) | DRG 750 ==
LOC: EMS 14:58 → B2S 18:13
PROVIDERS: ADMIT Psychiatry & Neurology Psychiatry; ATTEND Psychiatry & Neurology Psychiatry
DX: F25.9 Schizoaffective disorder, unspecified (principal); R45.851 Suicidal ideations; F12.90 Cannabis use, unspecified, uncomplicated; D64.9 Anemia, unspecified; N39.0 Urinary tract infection, site not specified; K21.9 Gastro-esophageal reflux disease without esophagitis; G89.29 Other chronic pain; F17.210 Nicotine dependence, cigarettes, uncomplicated; M19.90 Unspecified osteoarthritis, unspecified site; F19.10 Other psychoactive substance abuse, uncomplicated; F41.9 Anxiety disorder, unspecified; Z88.0 Allergy status to penicillin; Z85.46 Personal history of malignant neoplasm of prostate; Z88.6 Allergy status to analgesic agent; Z88.8 Allergy status to other drugs, medicaments and biological substances; Z79.899 Other long term (current) drug therapy; Z71.51 Drug abuse counseling and surveillance of drug abuser
CPT/HCPCS: 83036; 84436; 84439; 84443; 87081; 87086; G0480

== ENCOUNTER 2018-11-01 11:59 | Inpatient (IN) | payer MEDICAID ==
[~2018-11-01] VITALS: Ht 175.3 cm; Wt 71.2 kg
[~2018-11-01 11:59] MED LIST changes: +FAMO20 PO; -OMEP20 PO
[2018-11-01] MEDS ORDERED: CLON1 PO (12:26)
[2018-11-01 13:13] LABS: BASOPHILS % (AUTO) 0.6 % (0.0-2.0); EOSINOPHILS % (AUTO) 1.9 % (1.0-6.0); HEMATOCRIT 44.8 % (41-53); HEMOGLOBIN 14.7 g/dL (13.5-17.5); LYMPHOCYTES # (AUTO) 1.8 K/uL (1.0-4.8); LYMPHOCYTES % (AUTO) 35.5 % (22.0-44.0); MEAN CORPUSCULAR HGB CONC 32.9 G/dL (31.0-37.0); MEAN CORPUSCULAR VOLUME 97 fL (80-100); MONOCYTES # (AUTO) 0.4 K/uL (0.1-1.0); MONOCYTES % (AUTO) 7.3 % (2.0-9.0); NEUTROPHILS # (AUTO) 2.7 K/uL (1.8-7.7); NEUTROPHILS % (AUTO) 54.7 % (40.0-70.0); PLATELET COUNT (AUTO) 203 K/uL (150-450); RED BLOOD CELL COUNT(AUTO) 4.61 MIL/uL (4.50-5.90); RED CELL DISTRIBUTION WIDTH 14.3 % (11.5-14.5)
[2018-11-01 13:33] LABS: ANION GAP 2 mmol/L (8-16); CALCIUM, TOTAL 8.2 mg/dL (8.8-10.5); CARBON DIOXIDE 32 mmol/L (22-29); CHLORIDE 108 mmol/L (98-107); CREATININE 0.79 mg/dL (0.60-1.30); GLOMERULAR FILTR. RATE CALC > 60 mL/min (>60); GLUCOSE,RANDOM 77 mg/dL (70-110); POTASSIUM 4.7 mmol/L (3.5-5.1); SODIUM SERUM 142 mmol/L (136-145); UREA NITROGEN, BLOOD 14 mg/dL (7-18)
[2018-11-01 13:39] LABS: ALANINE AMINOTRANSFERASE 9 U/L (12-78); ALBUMIN 3.1 g/dL (3.4-5.0); ALKALINE PHOSPHATASE 44 U/L (46-116); ASPARTATE AMINOTRANSFERASE 12 U/L (15-37); BILIRUBIN,TOTAL 0.2 mg/dL (0.1-1.0); VALPROIC ACID 79 mcg/mL (50-100)
[2018-11-01] MEDS ORDERED: ACETAMINOPHEN 325 MG TABLET PO ONE (16:15)
[2018-11-01 16:50] LABS: AMPHET/METH SCREEN,URINE NEGATIVE (NEGATIVE); BARBITURATE SCREEN, URINE NEGATIVE (NEGATIVE); BENZODIAZEPINES SCREEN,URINE POSITIVE (NEGATIVE); CANNABINOID SCREEN,URINE POSITIVE (NEGATIVE); COCAINE SCREEN,URINE NEGATIVE (NEGATIVE); METHADONE SCREEN, URINE NEGATIVE (NEGATIVE); OPIATE SCREEN,URINE NEGATIVE (NEGATIVE)
[2018-11-01 16:58] LABS: PHENCYCLIDINE SCREEN,URINE NEGATIVE (NEGATIVE)
[2018-11-01] MEDS ORDERED: HALOPERIDOL 5 MG TABLET PO ONE (18:15)
[2018-11-02 01:08] VITALS: BP 125/85
[2018-11-02] MEDS: LORazepam 2 MG TABLET PO PRN ×4 (03:08→17:20)
[2018-11-02] MEDS ORDERED: DOCUSATE SODIUM 100 MG CAPSULE PO PRN (06:45)
[2018-11-02] MEDS ORDERED: ALBUTEROL SULFATE HFA 90 MCG/PUFF 8 GM INHALER IH PRN (06:45)
[2018-11-02] MEDS ORDERED: GuaiFENesin/D-METHORPHAN [SUGAR-FREE] 200-20MG/10 ML SYRUP UDCUP PO PRN (06:45)
[2018-11-02] MEDS ORDERED: ACETAMINOPHEN 325 MG TABLET PO PRN (06:45)
[2018-11-02] MEDS ORDERED: ONDANSETRON HCL 4 MG TABLET PO PRN (06:45)
[2018-11-02] MEDS ORDERED: CloNIDine HCL 0.1 MG TABLET PO PRN (06:45)
[2018-11-02] MEDS ORDERED: LOPERAMIDE HCL 2 MG CAPSULE PO PRN (06:45)
[2018-11-02] MEDS ORDERED: MAG HYDROX/AL HYDROX/SIMETH ES 30 ML SUSPENSION UDCUP PO PRN (06:45)
[2018-11-02] MEDS ORDERED: MAGNESIUM HYDROXIDE SUSPENSION 30 ML UDCUP PO PRN (06:45)
[2018-11-02] MEDS ORDERED: PETROLATUM,WHITE 71 GM JELLY TP PRN (06:45)
[2018-11-02] MEDS: IBUPROFEN 400 MG TABLET PO PRN (07:02)
[2018-11-02 07:03] VITALS: BP 140/94
[2018-11-02 08:26] LABS: HEMOGLOBIN A1C 5.6 % (4.5-6.2)
[2018-11-02] MEDS: HALOPERIDOL 5 MG TABLET PO PRN ×3 (08:26→17:20)
[2018-11-02] MEDS: NICOTINE 14 MG/24 HOUR PATCH TD SCH (08:28)
[2018-11-02 08:51] VITALS: BP 138/74
[2018-11-02 09:07] LABS: FREE T4 (FREE THYROXINE) 0.76 ng/dL (0.76-1.46); THYROID STIMULATING HORMONE 1.32 uIU/mL (0.36-3.74)
[2018-11-02] MEDS: DIVALPROEX SODIUM 500 MG DR TABLET PO SCH ×2 (13:27→16:52)
[2018-11-02] MEDS: FLUoxetine HCL 20 MG CAPSULE PO SCH (13:27)
[2018-11-02 14:30] VITALS: BP 118/70
[2018-11-02] MEDS: TraMADol HCL 50 MG TABLET PO PRN (14:35)
[2018-11-02] MEDS: FAMOTIDINE 20 MG TABLET PO SCH (16:22)
[2018-11-02 16:33] VITALS: BP 110/65
[2018-11-02] MEDS: FERROUS SULFATE 325 MG EC TABLET PO SCH (16:52)
[2018-11-02] MEDS: RisperiDONE 1 MG TABLET PO SCH (20:41)
[2018-11-02] MEDS: ZOLPIDEM TARTRATE 10 MG TABLET PO PRN (21:08)
[2018-11-03 00:50] VITALS: BP 101/63
[2018-11-03] MEDS: TraMADol HCL 50 MG TABLET PO PRN ×3 (00:53→16:35)
[2018-11-03] MEDS: FAMOTIDINE 20 MG TABLET PO SCH ×2 (06:29→16:34)
[2018-11-03] MEDS: FERROUS SULFATE 325 MG EC TABLET PO SCH ×3 (06:47→16:35)
[2018-11-03 08:21] VITALS: BP 138/71
[2018-11-03] MEDS: NICOTINE 14 MG/24 HOUR PATCH TD SCH (08:32)
[2018-11-03] MEDS: RisperiDONE 1 MG TABLET PO SCH ×2 (08:32→21:07)
[2018-11-03] MEDS: FLUoxetine HCL 20 MG CAPSULE PO SCH (08:32)
[2018-11-03] MEDS: LORazepam 2 MG TABLET PO PRN ×3 (08:33→17:35)
[2018-11-03] MEDS: HALOPERIDOL 5 MG TABLET PO PRN ×2 (08:33→16:35)
[2018-11-03] MEDS: DIVALPROEX SODIUM 500 MG DR TABLET PO SCH ×3 (08:33→16:35)
[2018-11-03 16:15] VITALS: BP 123/76
[2018-11-03 16:33] VITALS: BP 136/79
[2018-11-03 17:35] VITALS: BP 129/76
[2018-11-04] VITALS (7 sets, daily range): BP systolic 104–121; BP diastolic 61–81
[2018-11-04] MEDS: TraMADol HCL 50 MG TABLET PO PRN ×3 (00:02→14:34)
[2018-11-04] MEDS: HALOPERIDOL 5 MG TABLET PO PRN (03:43)
[2018-11-04] MEDS: LORazepam 2 MG TABLET PO PRN ×5 (03:43→19:44)
[2018-11-04] MEDS: FERROUS SULFATE 325 MG EC TABLET PO SCH ×3 (06:39→16:35)
[2018-11-04] MEDS: FAMOTIDINE 20 MG TABLET PO SCH ×2 (06:39→16:34)
[2018-11-04] MEDS: FLUoxetine HCL 20 MG CAPSULE PO SCH (08:19)
[2018-11-04] MEDS: RisperiDONE 1 MG TABLET PO SCH ×2 (08:19→21:23)
[2018-11-04] MEDS: NICOTINE 14 MG/24 HOUR PATCH TD SCH (08:20)
[2018-11-04] MEDS: DIVALPROEX SODIUM 500 MG DR TABLET PO SCH ×3 (08:20→16:35)
[2018-11-04] MEDS: IBUPROFEN 400 MG TABLET PO PRN ×2 (11:33→11:42)
[2018-11-04] MEDS: ZOLPIDEM TARTRATE 10 MG TABLET PO PRN (21:22)
[2018-11-05 00:31] VITALS: BP 110/68
[2018-11-05] MEDS: TraMADol HCL 50 MG TABLET PO PRN ×3 (00:32→14:00)
[2018-11-05] MEDS: FAMOTIDINE 20 MG TABLET PO SCH ×2 (06:41→16:33)
[2018-11-05] MEDS: FERROUS SULFATE 325 MG EC TABLET PO SCH ×3 (06:41→16:33)
[2018-11-05 06:53] VITALS: BP 120/81
[2018-11-05 08:22] VITALS: BP 104/51
[2018-11-05] MEDS: LORazepam 2 MG TABLET PO PRN ×3 (08:26→17:52)
[2018-11-05] MEDS: FLUoxetine HCL 20 MG CAPSULE PO SCH (08:26)
[2018-11-05] MEDS: RisperiDONE 1 MG TABLET PO SCH ×2 (08:26→20:24)
[2018-11-05] MEDS: DIVALPROEX SODIUM 500 MG DR TABLET PO SCH ×3 (08:26→16:33)
[2018-11-05] MEDS: NICOTINE 14 MG/24 HOUR PATCH TD SCH (08:27)
[2018-11-05 10:05] VITALS: BP 110/63
[2018-11-05 13:55] VITALS: BP 118/72
[2018-11-05 17:09] VITALS: BP 130/77
[2018-11-05] MEDS: IBUPROFEN 400 MG TABLET PO PRN (17:52)
[2018-11-05] MEDS: ZOLPIDEM TARTRATE 10 MG TABLET PO PRN (20:59)
[2018-11-06] MEDS: TraMADol HCL 50 MG TABLET PO PRN ×3 (04:05→17:21)
[2018-11-06 05:31] VITALS: BP 125/79
[2018-11-06] MEDS: FAMOTIDINE 20 MG TABLET PO SCH ×2 (07:02→16:55)
[2018-11-06] MEDS: FERROUS SULFATE 325 MG EC TABLET PO SCH ×3 (07:03→16:55)
[2018-11-06 08:27] VITALS: BP 118/83
[2018-11-06] MEDS: DIVALPROEX SODIUM 500 MG DR TABLET PO SCH ×3 (08:33→16:55)
[2018-11-06] MEDS: FLUoxetine HCL 20 MG CAPSULE PO SCH (08:33)
[2018-11-06] MEDS: NICOTINE 14 MG/24 HOUR PATCH TD SCH (08:33)
[2018-11-06] MEDS: IBUPROFEN 400 MG TABLET PO PRN ×2 (08:34→16:56)
[2018-11-06] MEDS: HALOPERIDOL 5 MG TABLET PO PRN ×2 (08:34→16:55)
[2018-11-06] MEDS: RisperiDONE 1 MG TABLET PO SCH ×2 (08:34→20:46)
[2018-11-06 10:47] VITALS: BP 116/78
[2018-11-06 16:26] VITALS: BP 125/78
[2018-11-06] MEDS: ZOLPIDEM TARTRATE 10 MG TABLET PO PRN (20:46)
[2018-11-07 02:55] VITALS: BP 127/77
[2018-11-07] MEDS: FERROUS SULFATE 325 MG EC TABLET PO SCH ×3 (06:28→16:28)
[2018-11-07] MEDS: FAMOTIDINE 20 MG TABLET PO SCH ×2 (06:28→16:28)
[2018-11-07] MEDS: RisperiDONE 1 MG TABLET PO SCH ×2 (08:45→20:06)
[2018-11-07] MEDS: DIVALPROEX SODIUM 500 MG DR TABLET PO SCH ×3 (08:45→16:28)
[2018-11-07] MEDS: FLUoxetine HCL 20 MG CAPSULE PO SCH (08:45)
[2018-11-07] MEDS: NICOTINE 14 MG/24 HOUR PATCH TD SCH (08:45)
[2018-11-07 09:23] VITALS: BP 139/71
[2018-11-07] MEDS: TraMADol HCL 50 MG TABLET PO PRN ×3 (09:30→22:20)
[2018-11-07 15:05] VITALS: BP 125/79
[2018-11-07] MEDS: HALOPERIDOL 5 MG TABLET PO PRN ×2 (15:08→22:19)
[2018-11-07 16:11] VITALS: BP 129/73
[2018-11-07] MEDS: IBUPROFEN 400 MG TABLET PO PRN (16:46)
[2018-11-07] MEDS: ZOLPIDEM TARTRATE 10 MG TABLET PO PRN (20:46)
[2018-11-07 22:30] VITALS: BP 134/88
[2018-11-08 01:59] VITALS: BP 107/80
[2018-11-08] MEDS: IBUPROFEN 400 MG TABLET PO PRN ×2 (04:08→13:49)
[2018-11-08] MEDS: FERROUS SULFATE 325 MG EC TABLET PO SCH ×3 (06:34→16:49)
[2018-11-08] MEDS: FAMOTIDINE 20 MG TABLET PO SCH ×2 (06:34→16:15)
[2018-11-08 08:28] VITALS: BP 109/65
[2018-11-08] MEDS: TraMADol HCL 50 MG TABLET PO PRN ×2 (08:40→17:29)
[2018-11-08] MEDS: DIVALPROEX SODIUM 500 MG DR TABLET PO SCH ×3 (09:03→16:50)
[2018-11-08] MEDS: RisperiDONE 1 MG TABLET PO SCH ×2 (09:04→20:19)
[2018-11-08] MEDS: NICOTINE 14 MG/24 HOUR PATCH TD SCH (09:04)
[2018-11-08] MEDS: FLUoxetine HCL 20 MG CAPSULE PO SCH (09:04)
[2018-11-08] MEDS: HALOPERIDOL 5 MG TABLET PO PRN ×2 (10:56→15:20)
[2018-11-08 13:40] VITALS: BP 118/69
[2018-11-08 16:42] VITALS: BP 109/72
[2018-11-08 17:28] VITALS: BP 123/76
[2018-11-08] MEDS: ZOLPIDEM TARTRATE 10 MG TABLET PO PRN (20:35)
[2018-11-09 00:49] VITALS: BP 129/63
[2018-11-09] MEDS: FAMOTIDINE 20 MG TABLET PO SCH ×2 (07:03→16:19)
[2018-11-09] MEDS: FERROUS SULFATE 325 MG EC TABLET PO SCH ×3 (07:03→16:19)
[2018-11-09 07:56] VITALS: BP 125/79
[2018-11-09] MEDS: FLUoxetine HCL 20 MG CAPSULE PO SCH (08:50)
[2018-11-09] MEDS: DIVALPROEX SODIUM 500 MG DR TABLET PO SCH ×3 (08:50→16:19)
[2018-11-09] MEDS: NICOTINE 14 MG/24 HOUR PATCH TD SCH (08:50)
[2018-11-09] MEDS: RisperiDONE 1 MG TABLET PO SCH ×2 (08:50→20:41)
[2018-11-09 08:51] VITALS: BP 125/79
[2018-11-09 09:31] VITALS: BP 120/80
[2018-11-09] MEDS: HALOPERIDOL 5 MG TABLET PO PRN ×2 (09:34→13:50)
[2018-11-09] MEDS: TraMADol HCL 50 MG TABLET PO PRN ×2 (09:34→17:32)
[2018-11-09 13:40] VITALS: BP 128/80
[2018-11-09] MEDS: IBUPROFEN 400 MG TABLET PO PRN (13:50)
[2018-11-09 17:30] VITALS: BP 123/85
[2018-11-09] MEDS: ZOLPIDEM TARTRATE 10 MG TABLET PO PRN (20:41)
[2018-11-10] VITALS: BP 125/85
[2018-11-10] MEDS: IBUPROFEN 400 MG TABLET PO PRN ×2 (00:01→13:49)
[2018-11-10] MEDS: FAMOTIDINE 20 MG TABLET PO SCH ×2 (06:36→16:47)
[2018-11-10] MEDS: FERROUS SULFATE 325 MG EC TABLET PO SCH ×3 (06:36→16:47)
[2018-11-10] MEDS: TraMADol HCL 50 MG TABLET PO PRN ×2 (07:15→17:32)
[2018-11-10 08:30] VITALS: BP 146/70
[2018-11-10] MEDS: DIVALPROEX SODIUM 500 MG DR TABLET PO SCH ×3 (08:55→16:47)
[2018-11-10] MEDS: FLUoxetine HCL 20 MG CAPSULE PO SCH (08:56)
[2018-11-10] MEDS: NICOTINE 14 MG/24 HOUR PATCH TD SCH (08:56)
[2018-11-10] MEDS: RisperiDONE 1 MG TABLET PO SCH ×2 (08:56→20:09)
[2018-11-10] MEDS: HALOPERIDOL 5 MG TABLET PO PRN (13:48)
[2018-11-10 16:40] VITALS: BP 122/87
[2018-11-10] MEDS: ZOLPIDEM TARTRATE 10 MG TABLET PO PRN (21:17)
[2018-11-11] MEDS: TraMADol HCL 50 MG TABLET PO PRN ×3 (00:02→16:04)
[2018-11-11 00:03] VITALS: BP 131/86
[2018-11-11] MEDS: FERROUS SULFATE 325 MG EC TABLET PO SCH ×3 (07:01→16:04)
[2018-11-11] MEDS: FAMOTIDINE 20 MG TABLET PO SCH ×2 (07:01→16:04)
[2018-11-11 08:20] VITALS: BP 132/84
[2018-11-11] MEDS: NICOTINE 14 MG/24 HOUR PATCH TD SCH (09:14)
[2018-11-11] MEDS: FLUoxetine HCL 20 MG CAPSULE PO SCH (09:14)
[2018-11-11] MEDS: DIVALPROEX SODIUM 500 MG DR TABLET PO SCH ×3 (09:14→16:04)
[2018-11-11] MEDS: RisperiDONE 1 MG TABLET PO SCH ×2 (09:14→20:12)
[2018-11-11 16:04] VITALS: BP 124/88
[2018-11-11] MEDS: HALOPERIDOL 5 MG TABLET PO PRN (16:04)
[2018-11-11] MEDS: ZOLPIDEM TARTRATE 10 MG TABLET PO PRN (21:12)
[2018-11-12 00:16] VITALS: BP 121/70
[2018-11-12] MEDS: TraMADol HCL 50 MG TABLET PO PRN ×5 (00:17→18:04)
[2018-11-12 06:13] VITALS: BP 118/68
[2018-11-12] MEDS: FAMOTIDINE 20 MG TABLET PO SCH ×2 (07:00→16:42)
[2018-11-12] MEDS: FERROUS SULFATE 325 MG EC TABLET PO SCH ×3 (07:01→16:42)
[2018-11-12] MEDS: RisperiDONE 1 MG TABLET PO SCH ×2 (08:56→20:05)
[2018-11-12] MEDS: NICOTINE 14 MG/24 HOUR PATCH TD SCH (08:56)
[2018-11-12] MEDS: FLUoxetine HCL 20 MG CAPSULE PO SCH (08:56)
[2018-11-12] MEDS: DIVALPROEX SODIUM 500 MG DR TABLET PO SCH ×3 (08:56→16:42)
[2018-11-12 08:57] VITALS: BP 121/69
[2018-11-12 12:12] VITALS: BP 115/81
[2018-11-12 16:12] VITALS: BP 133/76
[2018-11-12 18:04] VITALS: BP 125/78
[2018-11-12] MEDS: HALOPERIDOL 5 MG TABLET PO PRN (18:04)
[2018-11-12] MEDS: ZOLPIDEM TARTRATE 10 MG TABLET PO PRN (20:46)
[2018-11-13 00:05] VITALS: BP 120/81
[2018-11-13] MEDS: TraMADol HCL 50 MG TABLET PO PRN ×3 (00:39→12:39)
[2018-11-13 06:38] VITALS: BP 118/70
[2018-11-13] MEDS: FERROUS SULFATE 325 MG EC TABLET PO SCH ×2 (07:00→11:39)
[2018-11-13] MEDS: FAMOTIDINE 20 MG TABLET PO SCH (07:00)
[2018-11-13 08:20] VITALS: BP 125/78
[2018-11-13] MEDS: RisperiDONE 1 MG TABLET PO SCH (09:09)
[2018-11-13] MEDS: FLUoxetine HCL 20 MG CAPSULE PO SCH (09:09)
[2018-11-13] MEDS: DIVALPROEX SODIUM 500 MG DR TABLET PO SCH (09:09)
[2018-11-13] MEDS: NICOTINE 14 MG/24 HOUR PATCH TD SCH (09:16)
== END 2018-11-13 13:10 | disposition home or self-care (01) | DRG 750 ==
LOC: EMS 12:00 → B2S 22:00
PROVIDERS: ADMIT Psychiatry & Neurology Psychiatry; ATTEND Psychiatry & Neurology Psychiatry
DX: F25.0 Schizoaffective disorder, bipolar type (principal); R45.851 Suicidal ideations; Z91.14 Patient's other noncompliance with medication regimen; G89.29 Other chronic pain; M25.551 Pain in right hip; K21.9 Gastro-esophageal reflux disease without esophagitis; D64.9 Anemia, unspecified; F17.200 Nicotine dependence, unspecified, uncomplicated; M54.9 Dorsalgia, unspecified; M19.90 Unspecified osteoarthritis, unspecified site; G47.00 Insomnia, unspecified; F12.10 Cannabis abuse, uncomplicated; Z88.1 Allergy status to other antibiotic agents; Z88.0 Allergy status to penicillin; Z88.8 Allergy status to other drugs, medicaments and biological substances; Z85.46 Personal history of malignant neoplasm of prostate
CPT/HCPCS: 83036; 84439; 84443; 87081; G0480

== ENCOUNTER 2019-04-02 19:17 | Inpatient (IN) | payer MEDICAID ==
[~2019-04-02] VITALS: Ht 175.3 cm; Wt 64.9 kg
[~2019-04-02 19:17] MED LIST changes: -FERR-89 PO
[2019-04-02] MEDS ORDERED: CLON.5 PO (21:27)
[2019-04-02] MEDS ORDERED: NAPR-1025 PO (21:27)
[2019-04-02] MEDS ORDERED: GABA-531 PO (21:27)
[2019-04-02 22:32] LABS: BASOPHILS % (AUTO) 0.9 % (0.0-2.0); EOSINOPHILS % (AUTO) 1.5 % (1.0-6.0); HEMOGLOBIN 13.6 g/dL (13.5-17.5); LYMPHOCYTES # (AUTO) 2.1 K/uL (1.0-4.8); LYMPHOCYTES % (AUTO) 23.6 % (22.0-44.0); MEAN CORPUSCULAR HEMOGLOBIN 32.3 pg (26.0-34.0); MEAN CORPUSCULAR HGB CONC 33.2 G/dL (31.0-37.0); MEAN CORPUSCULAR VOLUME 97 fL (80-100); MONOCYTES # (AUTO) 0.7 K/uL (0.1-1.0); MONOCYTES % (AUTO) 7.3 % (2.0-9.0); NEUTROPHILS # (AUTO) 6.1 K/uL (1.8-7.7); NEUTROPHILS % (AUTO) 66.7 % (40.0-70.0); PLATELET COUNT (AUTO) 302 K/uL (150-450); RED BLOOD CELL COUNT(AUTO) 4.22 MIL/uL (4.50-5.90); RED CELL DISTRIBUTION WIDTH 13.7 % (11.5-14.5)
[2019-04-02 22:48] LABS: ANION GAP 3 mmol/L (8-16); CALCIUM, TOTAL 8.8 mg/dL (8.8-10.5); CARBON DIOXIDE 28 mmol/L (22-29); CHLORIDE 109 mmol/L (98-107); CREATININE 1.15 mg/dL (0.60-1.30); GLOMERULAR FILTR. RATE CALC > 60 mL/min (>60); GLUCOSE,RANDOM 89 mg/dL (70-110); SODIUM SERUM 140 mmol/L (136-145); UREA NITROGEN, BLOOD 13 mg/dL (7-18)
[2019-04-02 22:53] LABS: ALANINE AMINOTRANSFERASE 8 U/L (12-78); ALBUMIN 2.9 g/dL (3.4-5.0); ALKALINE PHOSPHATASE 50 U/L (46-116); ASPARTATE AMINOTRANSFERASE 11 U/L (15-37); BILIRUBIN,TOTAL 0.1 mg/dL (0.1-1.0); TOTAL PROTEIN, SERUM 5.7 g/dL (6.4-8.2)
[2019-04-02 23:12] LABS: AMPHET/METH SCREEN,URINE NEGATIVE (NEGATIVE); BARBITURATE SCREEN, URINE NEGATIVE (NEGATIVE); BENZODIAZEPINES SCREEN,URINE NEGATIVE (NEGATIVE); CANNABINOID SCREEN,URINE POSITIVE (NEGATIVE); COCAINE SCREEN,URINE NEGATIVE (NEGATIVE); METHADONE SCREEN, URINE NEGATIVE (NEGATIVE); OPIATE SCREEN,URINE NEGATIVE (NEGATIVE); PHENCYCLIDINE SCREEN,URINE NEGATIVE (NEGATIVE)
[2019-04-03] MEDS: HALOPERIDOL 5 MG TABLET PO PRN ×3 (00:18→14:24)
[2019-04-03] MEDS: LORazepam 2 MG TABLET PO PRN ×4 (00:18→20:06)
[2019-04-03] MEDS: ZOLPIDEM TARTRATE 10 MG TABLET PO PRN ×2 (00:18→23:03)
[2019-04-03 01:51] VITALS: BP 137/83
[2019-04-03] MEDS ORDERED: MAG HYDROX/AL HYDROX/SIMETH ES 30 ML SUSPENSION UDCUP PO PRN (06:00)
[2019-04-03] MEDS ORDERED: MAGNESIUM HYDROXIDE SUSPENSION 30 ML UDCUP PO PRN (06:00)
[2019-04-03] MEDS ORDERED: LOPERAMIDE HCL 2 MG CAPSULE PO PRN (06:00)
[2019-04-03] MEDS ORDERED: ONDANSETRON HCL 4 MG TABLET PO PRN (06:00)
[2019-04-03] MEDS ORDERED: BACITRACIN 28.4 GM OINTMENT TP PRN (06:00)
[2019-04-03] MEDS ORDERED: DOCUSATE SODIUM 100 MG CAPSULE PO PRN (06:00)
[2019-04-03] MEDS ORDERED: PETROLATUM,WHITE 28 GM JELLY TP PRN (06:00)
[2019-04-03] MEDS ORDERED: BENZOCAINE/MENTHOL LOZENGE MM PRN (06:00)
[2019-04-03] MEDS ORDERED: ALBUTEROL SULFATE HFA 90 MCG/PUFF 8 GM INHALER IH PRN (06:00)
[2019-04-03] MEDS ORDERED: CloNIDine HCL 0.1 MG TABLET PO PRN (06:00)
[2019-04-03 08:14] VITALS: BP 136/71
[2019-04-03 09:21] LABS: CHOL/HDL RATIO 3.1 (4.2-7.3); FREE T4 (FREE THYROXINE) 0.8 ng/dL (0.76-1.46); THYROID STIMULATING HORMONE 1.08 uIU/mL (0.36-3.74)
[2019-04-03 16:08] VITALS: BP 120/76
[2019-04-03] MEDS: RisperiDONE 1 MG TABLET PO SCH (20:06)
[2019-04-03 20:07] VITALS: BP 118/72
[2019-04-03] MEDS: ACETAMINOPHEN 325 MG TABLET PO PRN (20:07)
[2019-04-04 04:41] VITALS: BP 117/71
[2019-04-04] MEDS: HALOPERIDOL 5 MG TABLET PO PRN ×2 (05:19→18:42)
[2019-04-04] MEDS: LORazepam 2 MG TABLET PO PRN ×3 (05:19→18:41)
[2019-04-04] MEDS: FLUoxetine HCL 20 MG CAPSULE PO SCH (08:29)
[2019-04-04] MEDS: RisperiDONE 1 MG TABLET PO SCH ×2 (08:29→20:19)
[2019-04-04] MEDS: DIVALPROEX SODIUM 500 MG DR TABLET PO SCH ×3 (08:29→16:05)
[2019-04-04 08:43] VITALS: BP 122/64
[2019-04-04] MEDS: ACETAMINOPHEN 325 MG TABLET PO PRN ×2 (10:00→16:05)
[2019-04-04] MEDS: NICOTINE 21 MG/24 HOUR PATCH TD SCH (13:27)
[2019-04-04 16:14] VITALS: BP 109/69
[2019-04-04] MEDS: ZOLPIDEM TARTRATE 10 MG TABLET PO PRN (21:25)
[2019-04-05 06:41] VITALS: BP 114/67
[2019-04-05] MEDS: FLUoxetine HCL 20 MG CAPSULE PO SCH (08:17)
[2019-04-05] MEDS: RisperiDONE 1 MG TABLET PO SCH ×2 (08:17→20:17)
[2019-04-05] MEDS: DIVALPROEX SODIUM 500 MG DR TABLET PO SCH ×3 (08:18→16:15)
[2019-04-05] MEDS: NICOTINE 21 MG/24 HOUR PATCH TD SCH (08:18)
[2019-04-05] MEDS: LORazepam 2 MG TABLET PO PRN ×3 (08:18→18:03)
[2019-04-05 08:23] VITALS: BP 106/67
[2019-04-05 16:18] VITALS: BP 118/73
[2019-04-05] MEDS: ACETAMINOPHEN 325 MG TABLET PO PRN (18:04)
[2019-04-05] MEDS: ZOLPIDEM TARTRATE 10 MG TABLET PO PRN (21:30)
[2019-04-06 03:26] VITALS: BP 128/82
[2019-04-06] MEDS: HALOPERIDOL 5 MG TABLET PO PRN ×4 (03:27→19:13)
[2019-04-06] MEDS: LORazepam 2 MG TABLET PO PRN ×4 (03:27→19:13)
[2019-04-06 08:27] VITALS: BP 120/75
[2019-04-06] MEDS: RisperiDONE 1 MG TABLET PO SCH ×2 (09:09→20:46)
[2019-04-06] MEDS: NICOTINE 21 MG/24 HOUR PATCH TD SCH (09:09)
[2019-04-06] MEDS: DIVALPROEX SODIUM 500 MG DR TABLET PO SCH ×3 (09:09→16:36)
[2019-04-06] MEDS: FLUoxetine HCL 20 MG CAPSULE PO SCH (09:09)
[2019-04-06] MEDS: GABAPENTIN 300 MG CAPSULE PO SCH (16:37)
[2019-04-06] MEDS: ACETAMINOPHEN 325 MG TABLET PO PRN (16:37)
[2019-04-06 16:40] VITALS: BP 124/74
[2019-04-06] MEDS: ZOLPIDEM TARTRATE 10 MG TABLET PO PRN (21:01)
[2019-04-07 00:36] VITALS: BP 128/89
[2019-04-07] MEDS: LORazepam 2 MG TABLET PO PRN ×2 (02:18→17:29)
[2019-04-07] MEDS: HALOPERIDOL 5 MG TABLET PO PRN ×2 (02:18→10:00)
[2019-04-07] MEDS: DIVALPROEX SODIUM 500 MG DR TABLET PO SCH ×3 (08:41→16:35)
[2019-04-07] MEDS: FLUoxetine HCL 20 MG CAPSULE PO SCH (08:42)
[2019-04-07] MEDS: GABAPENTIN 300 MG CAPSULE PO SCH ×2 (08:42→16:35)
[2019-04-07] MEDS: RisperiDONE 1 MG TABLET PO SCH ×2 (08:42→20:33)
[2019-04-07 09:03] VITALS: BP 109/66
[2019-04-07] MEDS: NICOTINE 21 MG/24 HOUR PATCH TD SCH (09:58)
[2019-04-07] MEDS: ACETAMINOPHEN 325 MG TABLET PO PRN (13:08)
[2019-04-07 16:26] VITALS: BP 116/62
[2019-04-07] MEDS: ZOLPIDEM TARTRATE 10 MG TABLET PO PRN (21:44)
[2019-04-08 01:25] VITALS: BP 129/69
[2019-04-08] MEDS: LORazepam 2 MG TABLET PO PRN ×3 (01:27→16:03)
[2019-04-08] MEDS: HALOPERIDOL 5 MG TABLET PO PRN ×2 (01:27→16:03)
[2019-04-08] MEDS: GABAPENTIN 300 MG CAPSULE PO SCH ×2 (08:27→16:03)
[2019-04-08] MEDS: DIVALPROEX SODIUM 500 MG DR TABLET PO SCH ×3 (08:27→16:03)
[2019-04-08] MEDS: FLUoxetine HCL 20 MG CAPSULE PO SCH (08:27)
[2019-04-08] MEDS: RisperiDONE 1 MG TABLET PO SCH ×2 (08:27→20:08)
[2019-04-08] MEDS: NICOTINE 21 MG/24 HOUR PATCH TD SCH (08:28)
[2019-04-08 08:51] VITALS: BP 104/63
[2019-04-08 09:59] VITALS: BP 116/80
[2019-04-08] MEDS: ACETAMINOPHEN 325 MG TABLET PO PRN (09:59)
[2019-04-08 16:37] VITALS: BP 100/61
[2019-04-08 20:08] VITALS: BP 113/74
[2019-04-08] MEDS: IBUPROFEN 600 MG TABLET PO PRN (20:08)
[2019-04-08] MEDS: ZOLPIDEM TARTRATE 10 MG TABLET PO PRN (20:08)
[2019-04-09 01:00] VITALS: BP 117/82
[2019-04-09] MEDS: IBUPROFEN 600 MG TABLET PO PRN ×3 (01:02→20:05)
[2019-04-09] MEDS: LORazepam 2 MG TABLET PO PRN ×4 (01:02→23:09)
[2019-04-09 08:24] VITALS: BP 110/67
[2019-04-09] MEDS: RisperiDONE 1 MG TABLET PO SCH ×2 (09:28→20:05)
[2019-04-09] MEDS: FLUoxetine HCL 20 MG CAPSULE PO SCH (09:28)
[2019-04-09] MEDS: OMEPRAZOLE 20 MG CAPSULE PO PRN (09:28)
[2019-04-09] MEDS: DIVALPROEX SODIUM 500 MG DR TABLET PO SCH ×3 (09:28→16:47)
[2019-04-09] MEDS: NICOTINE 21 MG/24 HOUR PATCH TD SCH (09:29)
[2019-04-09] MEDS: GABAPENTIN 300 MG CAPSULE PO SCH ×2 (09:45→16:47)
[2019-04-09] MEDS: HALOPERIDOL 5 MG TABLET PO PRN (15:45)
[2019-04-09 16:23] VITALS: BP 125/79
[2019-04-09] MEDS: ZOLPIDEM TARTRATE 10 MG TABLET PO PRN (20:05)
[2019-04-09 20:06] VITALS: BP 121/80
[2019-04-10 00:27] VITALS: BP 102/63
[2019-04-10 08:52] VITALS: BP 113/67
[2019-04-10] MEDS: RisperiDONE 1 MG TABLET PO SCH ×2 (08:56→20:03)
[2019-04-10] MEDS: FLUoxetine HCL 20 MG CAPSULE PO SCH (08:56)
[2019-04-10] MEDS: DIVALPROEX SODIUM 500 MG DR TABLET PO SCH ×3 (08:56→16:10)
[2019-04-10] MEDS: GABAPENTIN 300 MG CAPSULE PO SCH ×2 (08:56→16:10)
[2019-04-10] MEDS: NICOTINE 21 MG/24 HOUR PATCH TD SCH (08:57)
[2019-04-10] MEDS: HALOPERIDOL 5 MG TABLET PO PRN ×2 (09:33→14:57)
[2019-04-10] MEDS: LORazepam 2 MG TABLET PO PRN ×2 (09:33→14:58)
[2019-04-10] MEDS: IBUPROFEN 600 MG TABLET PO PRN ×2 (09:33→17:53)
[2019-04-10 16:25] VITALS: BP 117/75
[2019-04-10] MEDS: ZOLPIDEM TARTRATE 10 MG TABLET PO PRN (21:00)
[2019-04-11 03:39] VITALS: BP 120/81
[2019-04-11] MEDS: LORazepam 2 MG TABLET PO PRN ×3 (03:40→14:48)
[2019-04-11] MEDS: ACETAMINOPHEN 325 MG TABLET PO PRN (03:41)
[2019-04-11 08:32] VITALS: BP 114/77
[2019-04-11] MEDS: FLUoxetine HCL 20 MG CAPSULE PO SCH (09:03)
[2019-04-11] MEDS: NICOTINE 21 MG/24 HOUR PATCH TD SCH (09:03)
[2019-04-11] MEDS: OMEPRAZOLE 20 MG CAPSULE PO PRN (09:03)
[2019-04-11] MEDS: DIVALPROEX SODIUM 500 MG DR TABLET PO SCH ×3 (09:04→16:20)
[2019-04-11] MEDS: GABAPENTIN 300 MG CAPSULE PO SCH ×2 (09:04→16:21)
[2019-04-11] MEDS: RisperiDONE 1 MG TABLET PO SCH ×2 (09:04→20:17)
[2019-04-11] MEDS: HALOPERIDOL 5 MG TABLET PO PRN ×2 (09:46→14:48)
[2019-04-11] MEDS: IBUPROFEN 600 MG TABLET PO PRN ×2 (09:47→16:20)
[2019-04-11 16:18] VITALS: BP 111/71
[2019-04-11] MEDS: ZOLPIDEM TARTRATE 10 MG TABLET PO PRN (21:09)
[2019-04-12 05:12] VITALS: BP 117/74
[2019-04-12] MEDS: LORazepam 2 MG TABLET PO PRN ×4 (05:26→18:32)
[2019-04-12] MEDS: HALOPERIDOL 5 MG TABLET PO PRN (05:26)
[2019-04-12 08:15] VITALS: BP 148/76
[2019-04-12] MEDS: GABAPENTIN 300 MG CAPSULE PO SCH ×2 (08:24→16:29)
[2019-04-12] MEDS: DIVALPROEX SODIUM 500 MG DR TABLET PO SCH ×3 (08:24→16:29)
[2019-04-12] MEDS: NICOTINE 21 MG/24 HOUR PATCH TD SCH (08:24)
[2019-04-12] MEDS: RisperiDONE 1 MG TABLET PO SCH ×2 (08:24→21:11)
[2019-04-12] MEDS: FLUoxetine HCL 20 MG CAPSULE PO SCH (08:24)
[2019-04-12 10:00] VITALS: BP 132/74
[2019-04-12 16:31] VITALS: BP 103/61
[2019-04-12 18:35] VITALS: BP 126/73
[2019-04-12] MEDS: IBUPROFEN 600 MG TABLET PO PRN (18:35)
[2019-04-12 18:37] VITALS: BP 123/76
[2019-04-12] MEDS: ZOLPIDEM TARTRATE 10 MG TABLET PO PRN (21:17)
[2019-04-13 00:27] VITALS: BP 111/64
[2019-04-13] MEDS: HALOPERIDOL 5 MG TABLET PO PRN ×2 (07:18→16:44)
[2019-04-13] MEDS: NICOTINE 21 MG/24 HOUR PATCH TD SCH (08:12)
[2019-04-13] MEDS: FLUoxetine HCL 20 MG CAPSULE PO SCH (08:12)
[2019-04-13] MEDS: GABAPENTIN 300 MG CAPSULE PO SCH ×2 (08:12→16:44)
[2019-04-13] MEDS: DIVALPROEX SODIUM 500 MG DR TABLET PO SCH ×3 (08:12→16:44)
[2019-04-13] MEDS: RisperiDONE 1 MG TABLET PO SCH ×2 (08:12→20:35)
[2019-04-13 08:15] VITALS: BP 109/66
[2019-04-13 12:36] VITALS: BP 119/76
[2019-04-13] MEDS: IBUPROFEN 600 MG TABLET PO PRN ×2 (12:39→18:49)
[2019-04-13 16:13] VITALS: BP 123/70
[2019-04-13] MEDS: LORazepam 1 MG TABLET PO PRN (21:14)
[2019-04-14 00:26] VITALS: BP 118/76
[2019-04-14] MEDS: HALOPERIDOL 5 MG TABLET PO PRN ×3 (03:41→13:41)
[2019-04-14] MEDS: LORazepam 1 MG TABLET PO PRN ×4 (03:42→20:10)
[2019-04-14 08:24] VITALS: BP 116/64
[2019-04-14] MEDS: GABAPENTIN 300 MG CAPSULE PO SCH ×2 (08:41→16:09)
[2019-04-14] MEDS: NICOTINE 21 MG/24 HOUR PATCH TD SCH (08:41)
[2019-04-14] MEDS: DIVALPROEX SODIUM 500 MG DR TABLET PO SCH ×3 (08:41→16:08)
[2019-04-14] MEDS: FLUoxetine HCL 20 MG CAPSULE PO SCH (08:41)
[2019-04-14] MEDS: RisperiDONE 1 MG TABLET PO SCH ×2 (08:41→20:07)
[2019-04-14] MEDS: IBUPROFEN 600 MG TABLET PO PRN ×2 (10:26→17:20)
[2019-04-14 16:42] VITALS: BP 101/61
[2019-04-15 02:42] VITALS: BP 114/81
[2019-04-15] MEDS: IBUPROFEN 600 MG TABLET PO PRN ×4 (02:48→22:52)
[2019-04-15] MEDS: LORazepam 1 MG TABLET PO PRN ×4 (02:48→20:17)
[2019-04-15 08:21] VITALS: BP 128/73
[2019-04-15] MEDS: DIVALPROEX SODIUM 500 MG DR TABLET PO SCH ×3 (08:28→16:22)
[2019-04-15] MEDS: GABAPENTIN 300 MG CAPSULE PO SCH ×2 (08:28→16:22)
[2019-04-15] MEDS: RisperiDONE 1 MG TABLET PO SCH ×2 (08:29→20:05)
[2019-04-15] MEDS: FLUoxetine HCL 20 MG CAPSULE PO SCH (08:29)
[2019-04-15] MEDS: NICOTINE 21 MG/24 HOUR PATCH TD SCH (08:29)
[2019-04-15] MEDS: HALOPERIDOL 5 MG TABLET PO PRN ×2 (08:30→14:23)
[2019-04-15 14:20] VITALS: BP 121/80
[2019-04-15 15:40] VITALS: BP 125/78
[2019-04-15 16:32] VITALS: BP 140/79
[2019-04-16 00:03] VITALS: BP 135/64
[2019-04-16 03:54] VITALS: BP 137/75
[2019-04-16] MEDS: LORazepam 1 MG TABLET PO PRN ×3 (04:04→13:55)
[2019-04-16] MEDS: ACETAMINOPHEN 325 MG TABLET PO PRN ×2 (04:04→13:58)
[2019-04-16] MEDS: DIVALPROEX SODIUM 500 MG DR TABLET PO SCH ×3 (08:17→16:30)
[2019-04-16] MEDS: FLUoxetine HCL 20 MG CAPSULE PO SCH (08:17)
[2019-04-16] MEDS: RisperiDONE 1 MG TABLET PO SCH ×2 (08:17→20:04)
[2019-04-16] MEDS: GABAPENTIN 300 MG CAPSULE PO SCH ×2 (08:17→16:29)
[2019-04-16] MEDS: NICOTINE 21 MG/24 HOUR PATCH TD SCH (08:18)
[2019-04-16 08:24] VITALS: BP 103/61
[2019-04-16 09:13] VITALS: BP 110/70
[2019-04-16] MEDS: HALOPERIDOL 5 MG TABLET PO PRN (09:13)
[2019-04-16] MEDS: IBUPROFEN 600 MG TABLET PO PRN ×2 (09:13→21:24)
[2019-04-16 19:35] VITALS: BP 134/78
[2019-04-16] MEDS ORDERED: ZOLPIDEM TARTRATE 10 MG TABLET PO PRN (21:15)
[2019-04-16 21:23] VITALS: BP 125/78
[2019-04-17 00:01] VITALS: BP 142/85
[2019-04-17] MEDS: ACETAMINOPHEN 325 MG TABLET PO PRN ×2 (00:03→11:00)
[2019-04-17] MEDS: LORazepam 1 MG TABLET PO PRN ×3 (00:03→11:01)
[2019-04-17] MEDS: IBUPROFEN 600 MG TABLET PO PRN (06:14)
[2019-04-17 06:17] VITALS: BP 131/63
[2019-04-17 08:15] VITALS: BP 132/70
[2019-04-17] MEDS: GABAPENTIN 300 MG CAPSULE PO SCH (08:20)
[2019-04-17] MEDS: DIVALPROEX SODIUM 500 MG DR TABLET PO SCH ×2 (08:20→12:28)
[2019-04-17] MEDS: RisperiDONE 1 MG TABLET PO SCH (08:20)
[2019-04-17] MEDS: FLUoxetine HCL 20 MG CAPSULE PO SCH (08:20)
[2019-04-17] MEDS: NICOTINE 21 MG/24 HOUR PATCH TD SCH (08:20)
[2019-04-17] MEDS ORDERED: DIVA-78 PO (11:58)
== END 2019-04-17 13:25 | disposition home or self-care (01) | DRG 750 ==
LOC: EMS 19:18 → B2S 04-03
PROVIDERS: ADMIT Psychiatry & Neurology Psychiatry; ATTEND Psychiatry & Neurology Psychiatry
DX: F25.1 Schizoaffective disorder, depressive type (principal); R45.851 Suicidal ideations; F22 Delusional disorders; M19.90 Unspecified osteoarthritis, unspecified site; F17.210 Nicotine dependence, cigarettes, uncomplicated; F32.9 Major depressive disorder, single episode, unspecified; G47.00 Insomnia, unspecified; F41.9 Anxiety disorder, unspecified; K59.00 Constipation, unspecified; Z85.46 Personal history of malignant neoplasm of prostate; Z88.6 Allergy status to analgesic agent; Z88.1 Allergy status to other antibiotic agents; Z88.0 Allergy status to penicillin; Z79.899 Other long term (current) drug therapy
CPT/HCPCS: 84439; 84443; G0480

== ENCOUNTER 2019-05-27 16:15 | Inpatient (IN) | payer MEDICAID ==
[~2019-05-27] VITALS: Ht 175.3 cm; Wt 62.9 kg
[~2019-05-27 16:15] MED LIST changes: -FAMO20 PO; +GABA-531 PO
[2019-05-27] MEDS ORDERED: CLON.5 PO (16:26)
[2019-05-27 17:11] LABS: BASOPHILS % (AUTO) 0.4 % (0.0-2.0); EOSINOPHILS % (AUTO) 0.7 % (1.0-6.0); HEMOGLOBIN 14.5 g/dL (13.5-17.5); LYMPHOCYTES # (AUTO) 1.7 K/uL (1.0-4.8); LYMPHOCYTES % (AUTO) 20.6 % (22.0-44.0); MEAN CORPUSCULAR HEMOGLOBIN 32.1 pg (26.0-34.0); MEAN CORPUSCULAR VOLUME 97 fL (80-100); MONOCYTES # (AUTO) 0.5 K/uL (0.1-1.0); MONOCYTES % (AUTO) 5.6 % (2.0-9.0); NEUTROPHILS # (AUTO) 5.9 K/uL (1.8-7.7); NEUTROPHILS % (AUTO) 72.7 % (40.0-70.0); PLATELET COUNT (AUTO) 297 K/uL (150-450); RED BLOOD CELL COUNT(AUTO) 4.52 MIL/uL (4.50-5.90); RED CELL DISTRIBUTION WIDTH 14.2 % (11.5-14.5)
[2019-05-27] MEDS ORDERED: DiphenhydrAMINE HCL 25 MG CAPSULE PO ONE (17:30)
[2019-05-27] MEDS ORDERED: LORazepam 1 MG TABLET PO ONE (17:30)
[2019-05-27] MEDS ORDERED: HALOPERIDOL 5 MG TABLET PO ONE (17:30)
[2019-05-27] MEDS ORDERED: HALOPERIDOL 5 MG TABLET PO PRN (17:30)
[2019-05-27 17:32] LABS: ANION GAP 8 mmol/L (8-16); CALCIUM, TOTAL 8.9 mg/dL (8.8-10.5); CARBON DIOXIDE 29 mmol/L (22-29); CHLORIDE 104 mmol/L (98-107); CREATININE 0.99 mg/dL (0.60-1.30); GLOMERULAR FILTR. RATE CALC > 60 mL/min (>60); GLUCOSE,RANDOM 78 mg/dL (70-110); POTASSIUM 3.7 mmol/L (3.5-5.1); SODIUM SERUM 141 mmol/L (136-145); UREA NITROGEN, BLOOD 6 mg/dL (7-18)
[2019-05-27 17:40] LABS: ALBUMIN 3.8 g/dL (3.4-5.0); ALKALINE PHOSPHATASE 53 U/L (46-116); ASPARTATE AMINOTRANSFERASE 12 U/L (15-37); BILIRUBIN,TOTAL 0.5 mg/dL (0.1-1.0); TOTAL PROTEIN, SERUM 6.4 g/dL (6.4-8.2)
[2019-05-27 17:55] LABS: ALANINE AMINOTRANSFERASE 9 U/L (12-78)
[2019-05-27 17:56] LABS: VALPROIC ACID < 3 mcg/mL (50-100)
[2019-05-27 19:58] VITALS: BP 108/79
[2019-05-27 20:32] VITALS: BP 108/79
[2019-05-27] MEDS: ZOLPIDEM TARTRATE 10 MG TABLET PO PRN (21:43)
[2019-05-28 00:15] VITALS: BP 117/66
[2019-05-28 08:03] LABS: FREE T4 (FREE THYROXINE) 0.92 ng/dL (0.76-1.46); THYROID STIMULATING HORMONE 0.78 uIU/mL (0.36-3.74)
[2019-05-28 08:15] VITALS: BP 102/63
[2019-05-28] MEDS ORDERED: BACITRACIN 28.4 GM OINTMENT TP PRN (08:15)
[2019-05-28] MEDS ORDERED: DOCUSATE SODIUM 100 MG CAPSULE PO PRN (08:15)
[2019-05-28] MEDS ORDERED: ALBUTEROL SULFATE HFA 90 MCG/PUFF 8 GM INHALER IH PRN (08:15)
[2019-05-28] MEDS ORDERED: MAG HYDROX/AL HYDROX/SIMETH ES 30 ML SUSPENSION UDCUP PO PRN (08:15)
[2019-05-28] MEDS ORDERED: CloNIDine HCL 0.1 MG TABLET PO PRN (08:15)
[2019-05-28] MEDS ORDERED: MAGNESIUM HYDROXIDE SUSPENSION 30 ML UDCUP PO PRN (08:15)
[2019-05-28] MEDS ORDERED: BENZOCAINE/MENTHOL LOZENGE MM PRN (08:15)
[2019-05-28] MEDS ORDERED: OMEPRAZOLE 20 MG CAPSULE PO PRN (08:15)
[2019-05-28] MEDS ORDERED: LOPERAMIDE HCL 2 MG CAPSULE PO PRN (08:15)
[2019-05-28] MEDS ORDERED: PETROLATUM,WHITE 28 GM JELLY TP PRN (08:15)
[2019-05-28] MEDS ORDERED: ONDANSETRON HCL 4 MG TABLET PO PRN (08:15)
[2019-05-28] MEDS: DIVALPROEX SODIUM 500 MG DR TABLET PO SCH ×3 (09:11→16:09)
[2019-05-28] MEDS: GABAPENTIN 300 MG CAPSULE PO SCH ×3 (09:11→16:09)
[2019-05-28 10:04] VITALS: BP 111/76
[2019-05-28] MEDS: LORazepam 2 MG TABLET PO PRN ×2 (10:05→16:44)
[2019-05-28 11:43] VITALS: BP 119/75
[2019-05-28] MEDS: ACETAMINOPHEN 325 MG TABLET PO PRN ×2 (11:44→21:08)
[2019-05-28 16:12] VITALS: BP 113/60
[2019-05-28] MEDS: RisperiDONE 1 MG TABLET PO SCH (20:35)
[2019-05-28 21:08] VITALS: BP 117/65
[2019-05-28] MEDS: ZOLPIDEM TARTRATE 10 MG TABLET PO PRN (21:08)
[2019-05-29 02:29] VITALS: BP 133/82
[2019-05-29] MEDS: ACETAMINOPHEN 325 MG TABLET PO PRN ×2 (02:33→08:35)
[2019-05-29] MEDS: LORazepam 2 MG TABLET PO PRN ×3 (02:33→14:39)
[2019-05-29] MEDS: GABAPENTIN 300 MG CAPSULE PO SCH ×3 (08:37→16:03)
[2019-05-29] MEDS: DIVALPROEX SODIUM 500 MG DR TABLET PO SCH ×3 (08:37→16:02)
[2019-05-29] MEDS: RisperiDONE 1 MG TABLET PO SCH ×2 (08:37→20:39)
[2019-05-29] MEDS: FLUoxetine HCL 20 MG CAPSULE PO SCH (08:37)
[2019-05-29 08:48] VITALS: BP 109/63
[2019-05-29] MEDS: NICOTINE 21 MG/24 HOUR PATCH TD SCH (14:39)
[2019-05-29 16:03] VITALS: BP 126/74
[2019-05-29] MEDS: NAPROXEN 250 MG TABLET PO PRN (16:03)
[2019-05-29] MEDS: ZOLPIDEM TARTRATE 10 MG TABLET PO PRN (20:39)
[2019-05-30 03:48] VITALS: BP 110/79
[2019-05-30] MEDS: LORazepam 2 MG TABLET PO PRN ×4 (03:51→17:25)
[2019-05-30] MEDS: NAPROXEN 250 MG TABLET PO PRN ×2 (04:06→16:39)
[2019-05-30] MEDS: FLUoxetine HCL 20 MG CAPSULE PO SCH (08:06)
[2019-05-30] MEDS: NICOTINE 21 MG/24 HOUR PATCH TD SCH (08:06)
[2019-05-30] MEDS: DIVALPROEX SODIUM 500 MG DR TABLET PO SCH ×3 (08:06→16:04)
[2019-05-30] MEDS: RisperiDONE 1 MG TABLET PO SCH ×2 (08:06→20:02)
[2019-05-30] MEDS: GABAPENTIN 300 MG CAPSULE PO SCH ×3 (08:06→16:04)
[2019-05-30 08:07] VITALS: BP 110/71
[2019-05-30] MEDS: ACETAMINOPHEN 325 MG TABLET PO PRN ×2 (08:07→12:18)
[2019-05-30 09:59] VITALS: BP 110/71
[2019-05-30 12:18] VITALS: BP 114/73
[2019-05-30 16:21] VITALS: BP 112/78
[2019-05-30] MEDS: ZOLPIDEM TARTRATE 10 MG TABLET PO PRN (21:03)
[2019-05-30 22:58] VITALS: BP 115/73
[2019-05-30] MEDS: IBUPROFEN 800 MG TABLET PO PRN (22:58)
[2019-05-31 04:47] VITALS: BP 118/74
[2019-05-31 07:02] VITALS: BP 111/68
[2019-05-31] MEDS: IBUPROFEN 800 MG TABLET PO PRN ×2 (07:11→16:03)
[2019-05-31] MEDS: DIVALPROEX SODIUM 500 MG DR TABLET PO SCH ×3 (08:12→16:03)
[2019-05-31] MEDS: FLUoxetine HCL 20 MG CAPSULE PO SCH (08:12)
[2019-05-31] MEDS: RisperiDONE 1 MG TABLET PO SCH ×2 (08:12→20:12)
[2019-05-31] MEDS: LORazepam 2 MG TABLET PO PRN ×2 (08:13→13:20)
[2019-05-31] MEDS: NICOTINE 21 MG/24 HOUR PATCH TD SCH (08:13)
[2019-05-31] MEDS: GABAPENTIN 300 MG CAPSULE PO SCH ×3 (08:13→16:03)
[2019-05-31 08:30] VITALS: BP 113/61
[2019-05-31 16:24] VITALS: BP 102/64
[2019-05-31] MEDS: ZOLPIDEM TARTRATE 10 MG TABLET PO PRN (21:09)
[2019-06-01 04:08] VITALS: BP 126/72
[2019-06-01] MEDS: LORazepam 2 MG TABLET PO PRN ×4 (04:13→22:29)
[2019-06-01] MEDS: IBUPROFEN 800 MG TABLET PO PRN ×3 (04:13→22:30)
[2019-06-01 08:13] VITALS: BP 124/68
[2019-06-01] MEDS: FLUoxetine HCL 20 MG CAPSULE PO SCH (08:27)
[2019-06-01] MEDS: RisperiDONE 1 MG TABLET PO SCH ×2 (08:27→20:17)
[2019-06-01] MEDS: DIVALPROEX SODIUM 500 MG DR TABLET PO SCH ×3 (08:27→16:33)
[2019-06-01] MEDS: GABAPENTIN 300 MG CAPSULE PO SCH ×3 (08:27→16:33)
[2019-06-01] MEDS: NICOTINE 21 MG/24 HOUR PATCH TD SCH (08:29)
[2019-06-01 14:09] VITALS: BP 126/84
[2019-06-01 16:09] VITALS: BP 112/62
[2019-06-01] MEDS: ZOLPIDEM TARTRATE 10 MG TABLET PO PRN (20:18)
[2019-06-01 22:28] VITALS: BP 113/80
[2019-06-02 05:58] VITALS: BP 128/90
[2019-06-02] MEDS: LORazepam 2 MG TABLET PO PRN ×4 (06:03→22:08)
[2019-06-02] MEDS: IBUPROFEN 800 MG TABLET PO PRN ×3 (06:03→22:21)
[2019-06-02] MEDS: FLUoxetine HCL 20 MG CAPSULE PO SCH (08:40)
[2019-06-02] MEDS: DIVALPROEX SODIUM 500 MG DR TABLET PO SCH ×3 (08:40→16:10)
[2019-06-02] MEDS: RisperiDONE 1 MG TABLET PO SCH ×2 (08:40→20:23)
[2019-06-02] MEDS: GABAPENTIN 300 MG CAPSULE PO SCH ×3 (08:40→16:12)
[2019-06-02] MEDS: NICOTINE 21 MG/24 HOUR PATCH TD SCH (08:41)
[2019-06-02 14:17] VITALS: BP 121/75
[2019-06-02 16:06] VITALS: BP 118/70
[2019-06-02] MEDS: ZOLPIDEM TARTRATE 10 MG TABLET PO PRN (20:45)
[2019-06-02 22:21] VITALS: BP 125/73
[2019-06-03 08:01] VITALS: BP 118/81
[2019-06-03] MEDS: LORazepam 2 MG TABLET PO PRN ×3 (08:01→16:48)
[2019-06-03] MEDS: RisperiDONE 1 MG TABLET PO SCH ×2 (08:01→20:32)
[2019-06-03] MEDS: DIVALPROEX SODIUM 500 MG DR TABLET PO SCH ×3 (08:01→16:09)
[2019-06-03] MEDS: IBUPROFEN 800 MG TABLET PO PRN ×2 (08:01→18:34)
[2019-06-03] MEDS: FLUoxetine HCL 20 MG CAPSULE PO SCH (08:01)
[2019-06-03] MEDS: GABAPENTIN 300 MG CAPSULE PO SCH ×3 (08:02→16:09)
[2019-06-03 08:19] VITALS: BP 114/82
[2019-06-03] MEDS: NICOTINE 21 MG/24 HOUR PATCH TD SCH (09:47)
[2019-06-03] MEDS: NAPROXEN 250 MG TABLET PO PRN (11:22)
[2019-06-03 12:43] VITALS: BP 121/79
[2019-06-03 16:08] VITALS: BP 125/82
[2019-06-03 17:34] VITALS: BP 125/78
[2019-06-03] MEDS: ZOLPIDEM TARTRATE 10 MG TABLET PO PRN (21:00)
[2019-06-04 01:30] VITALS: BP 128/85
[2019-06-04] MEDS: LORazepam 2 MG TABLET PO PRN ×4 (01:36→17:48)
[2019-06-04] MEDS: ACETAMINOPHEN 325 MG TABLET PO PRN (01:36)
[2019-06-04 07:43] VITALS: BP 133/76
[2019-06-04] MEDS: IBUPROFEN 800 MG TABLET PO PRN ×2 (07:46→16:45)
[2019-06-04 08:11] VITALS: BP 133/76
[2019-06-04] MEDS: FLUoxetine HCL 20 MG CAPSULE PO SCH (08:58)
[2019-06-04] MEDS: NICOTINE 21 MG/24 HOUR PATCH TD SCH (08:58)
[2019-06-04] MEDS: RisperiDONE 1 MG TABLET PO SCH ×2 (08:58→20:20)
[2019-06-04] MEDS: DIVALPROEX SODIUM 500 MG DR TABLET PO SCH ×3 (08:59→16:16)
[2019-06-04] MEDS: GABAPENTIN 300 MG CAPSULE PO SCH ×3 (08:59→16:17)
[2019-06-04 16:08] VITALS: BP 121/66
[2019-06-04 16:45] VITALS: BP 125/71
[2019-06-04] MEDS: ZOLPIDEM TARTRATE 10 MG TABLET PO PRN (21:03)
[2019-06-05] MEDS: IBUPROFEN 800 MG TABLET PO PRN (04:32)
[2019-06-05] MEDS: LORazepam 2 MG TABLET PO PRN ×2 (04:32→08:50)
[2019-06-05 05:04] VITALS: BP 135/74
[2019-06-05] MEDS: FLUoxetine HCL 20 MG CAPSULE PO SCH (08:13)
[2019-06-05] MEDS: DIVALPROEX SODIUM 500 MG DR TABLET PO SCH ×2 (08:13→12:40)
[2019-06-05] MEDS: RisperiDONE 1 MG TABLET PO SCH (08:13)
[2019-06-05] MEDS: GABAPENTIN 300 MG CAPSULE PO SCH ×2 (08:14→12:40)
[2019-06-05] MEDS: NICOTINE 21 MG/24 HOUR PATCH TD SCH (08:14)
[2019-06-05 08:33] VITALS: BP 114/68
[2019-06-05] MEDS: ACETAMINOPHEN 325 MG TABLET PO PRN (08:50)
== END 2019-06-05 16:17 | disposition home or self-care (01) | DRG 750 ==
LOC: EMS 16:17 → B2S 18:19
PROVIDERS: ADMIT Psychiatry & Neurology Psychiatry; ATTEND Psychiatry & Neurology Psychiatry
DX: F25.1 Schizoaffective disorder, depressive type (principal); R45.851 Suicidal ideations; F17.210 Nicotine dependence, cigarettes, uncomplicated; F41.9 Anxiety disorder, unspecified; G47.00 Insomnia, unspecified; K59.00 Constipation, unspecified; Z85.46 Personal history of malignant neoplasm of prostate; Z79.899 Other long term (current) drug therapy; Z88.0 Allergy status to penicillin; Z88.1 Allergy status to other antibiotic agents; Z88.8 Allergy status to other drugs, medicaments and biological substances
CPT/HCPCS: 84439; 84443; 99406; G0480

== ENCOUNTER 2019-07-02 10:45 | Emergency (ER) | payer MEDICAID ==
[~2019-07-02] VITALS: Ht 175.3 cm; Wt 68.2 kg
[2019-07-02] MEDS ORDERED: METHOCARBAMOL 500 MG TABLET PO ONE (12:30)
[2019-07-02] MEDS ORDERED: LIDOCAINE 5% TRANSDERMAL PATCH TD ONE (12:30)
[2019-07-02 14:32] VITALS: BP 123/77
== END 2019-07-02 14:33 | disposition home or self-care (01) ==
LOC: EMS 10:46
DX: M25.551 Pain in right hip (principal); R03.0 Elevated blood-pressure reading, without diagnosis of hypertension; F32.9 Major depressive disorder, single episode, unspecified; F20.9 Schizophrenia, unspecified; F17.210 Nicotine dependence, cigarettes, uncomplicated; Z88.6 Allergy status to analgesic agent; Z88.1 Allergy status to other antibiotic agents; Z88.0 Allergy status to penicillin
CPT/HCPCS: 73502

== ENCOUNTER 2019-10-05 14:24 | Inpatient (IN) | payer MEDICAID ==
[~2019-10-05] VITALS: Ht 175.3 cm; Wt 60.5 kg
[2019-10-05] MEDS ORDERED: CLON.5 PO (14:35)
[2019-10-05] MEDS ORDERED: RISP1 PO (14:35)
[2019-10-05] MEDS ORDERED: HYDR-4455 PO (14:35)
[2019-10-05] MEDS ORDERED: NAPR-1025 PO (14:35)
[2019-10-05 15:04] LABS: BASOPHILS % (AUTO) 0.2 % (0.0-2.0); EOSINOPHILS % (AUTO) 0 % (1.0-6.0); HEMATOCRIT 37.6 % (41-53); HEMOGLOBIN 12.2 g/dL (13.5-17.5); LYMPHOCYTES # (AUTO) 0.6 K/uL (1.0-4.8); MEAN CORPUSCULAR HEMOGLOBIN 30.1 pg (26.0-34.0); MEAN CORPUSCULAR HGB CONC 32.4 G/dL (31.0-37.0); MEAN CORPUSCULAR VOLUME 93 fL (80-100); MONOCYTES # (AUTO) 0.5 K/uL (0.1-1.0); MONOCYTES % (AUTO) 4.3 % (2.0-9.0); NEUTROPHILS # (AUTO) 10.6 K/uL (1.8-7.7); PLATELET COUNT (AUTO) 290 K/uL (150-450); RED BLOOD CELL COUNT(AUTO) 4.04 MIL/uL (4.50-5.90); RED CELL DISTRIBUTION WIDTH 14.3 % (11.5-14.5)
[2019-10-05 15:11] LABS: NEUTROPHILS % (AUTO) 90.5 % (40.0-70.0)
[2019-10-05 15:14] LABS: ANION GAP 9 mmol/L (8-16); CALCIUM, TOTAL 8.6 mg/dL (8.8-10.5); CARBON DIOXIDE 26 mmol/L (22-29); CHLORIDE 102 mmol/L (98-107); CREATININE 0.95 mg/dL (0.60-1.30); GLOMERULAR FILTR. RATE CALC > 60 mL/min (>60); GLUCOSE,RANDOM 117 mg/dL (70-110); POTASSIUM 3.6 mmol/L (3.5-5.1); SODIUM SERUM 137 mmol/L (136-145); UREA NITROGEN, BLOOD 13 mg/dL (7-18)
[2019-10-05] MEDS ORDERED: LORazepam 2 MG TABLET PO ONE (15:15)
[2019-10-05] MEDS ORDERED: HALOPERIDOL 5 MG TABLET PO ONE (15:15)
[2019-10-05] MEDS ORDERED: HYDR-4061 PO (15:15)
[2019-10-05 15:21] LABS: ALANINE AMINOTRANSFERASE 11 U/L (12-78); ALBUMIN 3.4 g/dL (3.4-5.0); ALKALINE PHOSPHATASE 80 U/L (46-116); ASPARTATE AMINOTRANSFERASE 10 U/L (15-37); BILIRUBIN,TOTAL 0.5 mg/dL (0.1-1.0); TOTAL PROTEIN, SERUM 6.8 g/dL (6.4-8.2)
[2019-10-05 15:48] LABS: AMPHET/METH SCREEN,URINE NEGATIVE (NEGATIVE); BARBITURATE SCREEN, URINE NEGATIVE (NEGATIVE); BENZODIAZEPINES SCREEN,URINE NEGATIVE (NEGATIVE); CANNABINOID SCREEN,URINE POSITIVE (NEGATIVE); COCAINE SCREEN,URINE NEGATIVE (NEGATIVE); METHADONE SCREEN, URINE NEGATIVE (NEGATIVE); OPIATE SCREEN,URINE NEGATIVE (NEGATIVE)
[2019-10-05 15:56] LABS: PHENCYCLIDINE SCREEN,URINE NEGATIVE (NEGATIVE)
[2019-10-05 19:23] VITALS: BP 110/81
[2019-10-05] MEDS: HALOPERIDOL 5 MG TABLET PO PRN (19:35)
[2019-10-05] MEDS: LORazepam 2 MG TABLET PO PRN ×2 (19:35→23:39)
[2019-10-05] MEDS ORDERED: OMEPRAZOLE 20 MG CAPSULE PO PRN (21:15)
[2019-10-05] MEDS ORDERED: ALBUTEROL SULFATE HFA 90 MCG/PUFF 8 GM INHALER IH PRN (21:15)
[2019-10-05] MEDS ORDERED: MAG HYDROX/AL HYDROX/SIMETH ES 30 ML SUSPENSION UDCUP PO PRN (21:15)
[2019-10-05] MEDS ORDERED: ONDANSETRON HCL 4 MG TABLET PO PRN (21:15)
[2019-10-05] MEDS ORDERED: DOCUSATE SODIUM 100 MG CAPSULE PO PRN (21:15)
[2019-10-05] MEDS ORDERED: LOPERAMIDE HCL 2 MG CAPSULE PO PRN (21:15)
[2019-10-05] MEDS ORDERED: BENZOCAINE/MENTHOL LOZENGE MM PRN (21:15)
[2019-10-05] MEDS ORDERED: MAGNESIUM HYDROXIDE SUSPENSION 30 ML UDCUP PO PRN (21:15)
[2019-10-05] MEDS ORDERED: PETROLATUM,WHITE 28 GM JELLY TP PRN (21:15)
[2019-10-05] MEDS ORDERED: CloNIDine HCL 0.1 MG TABLET PO PRN (21:15)
[2019-10-05] MEDS ORDERED: BACITRACIN 28.4 GM OINTMENT TP PRN (21:15)
[2019-10-05] MEDS: ZOLPIDEM TARTRATE 10 MG TABLET PO PRN (21:16)
[2019-10-06 04:00] VITALS: BP 145/81
[2019-10-06] MEDS: LORazepam 2 MG TABLET PO PRN ×2 (04:09→16:15)
[2019-10-06] MEDS: NAPROXEN 500 MG TABLET PO SCH ×2 (06:43→17:22)
[2019-10-06 08:02] LABS: HEMOGLOBIN A1C 5.2 % (4.5-6.2)
[2019-10-06 08:26] LABS: CHOL/HDL RATIO 2.1 (4.2-7.3); THYROID STIMULATING HORMONE 0.28 uIU/mL (0.36-3.74)
[2019-10-06 11:41] VITALS: BP 106/56
[2019-10-06] MEDS: ACETAMINOPHEN 325 MG TABLET PO PRN (13:37)
[2019-10-06] MEDS: HALOPERIDOL 5 MG TABLET PO PRN (16:15)
[2019-10-06 17:39] VITALS: BP 115/70
[2019-10-06] MEDS: RisperiDONE 1 MG TABLET PO SCH (21:17)
[2019-10-06] MEDS: ZOLPIDEM TARTRATE 10 MG TABLET PO PRN (21:26)
[2019-10-07] MEDS: NAPROXEN 500 MG TABLET PO SCH ×2 (06:41→16:06)
[2019-10-07] MEDS: LORazepam 2 MG TABLET PO PRN ×3 (07:42→16:08)
[2019-10-07] MEDS: RisperiDONE 1 MG TABLET PO SCH ×2 (09:12→20:22)
[2019-10-07] MEDS: FLUoxetine HCL 20 MG CAPSULE PO SCH (09:12)
[2019-10-07] MEDS: DIVALPROEX SODIUM 500 MG DR TABLET PO SCH ×3 (09:13→16:06)
[2019-10-07 09:51] VITALS: BP 108/64
[2019-10-07 11:40] VITALS: BP 119/68
[2019-10-07] MEDS: ACETAMINOPHEN 325 MG TABLET PO PRN ×2 (11:48→21:46)
[2019-10-07] MEDS: HALOPERIDOL 5 MG TABLET PO PRN (16:08)
[2019-10-07 16:30] VITALS: BP 112/72
[2019-10-07] MEDS: ZOLPIDEM TARTRATE 10 MG TABLET PO PRN (21:46)
[2019-10-07 21:50] VITALS: BP 110/70
[2019-10-08 06:08] VITALS: BP 129/75
[2019-10-08] MEDS: NAPROXEN 500 MG TABLET PO SCH ×2 (06:45→16:22)
[2019-10-08 08:00] VITALS: BP 123/81
[2019-10-08] MEDS: FLUoxetine HCL 20 MG CAPSULE PO SCH (08:25)
[2019-10-08] MEDS: RisperiDONE 1 MG TABLET PO SCH ×2 (08:25→20:52)
[2019-10-08] MEDS: DIVALPROEX SODIUM 500 MG DR TABLET PO SCH ×3 (08:25→16:21)
[2019-10-08] MEDS: HALOPERIDOL 5 MG TABLET PO PRN ×3 (08:27→16:45)
[2019-10-08] MEDS: LORazepam 2 MG TABLET PO PRN ×3 (08:27→16:45)
[2019-10-08 12:30] VITALS: BP 106/78
[2019-10-08] MEDS: ACETAMINOPHEN 325 MG TABLET PO PRN (12:34)
[2019-10-08 17:00] VITALS: BP 100/62
[2019-10-08] MEDS: ZOLPIDEM TARTRATE 10 MG TABLET PO PRN (20:57)
[2019-10-09] MEDS: NAPROXEN 500 MG TABLET PO SCH ×2 (06:39→16:35)
[2019-10-09] MEDS: RisperiDONE 1 MG TABLET PO SCH (08:41)
[2019-10-09] MEDS: FLUoxetine HCL 20 MG CAPSULE PO SCH (08:41)
[2019-10-09] MEDS: DIVALPROEX SODIUM 500 MG DR TABLET PO SCH ×3 (08:41→16:34)
[2019-10-09] MEDS: HALOPERIDOL 5 MG TABLET PO PRN (08:43)
[2019-10-09] MEDS: LORazepam 2 MG TABLET PO PRN ×3 (08:43→17:26)
[2019-10-09 09:51] VITALS: BP 136/84
[2019-10-09] MEDS: ACETAMINOPHEN 325 MG TABLET PO PRN (13:01)
[2019-10-09 17:46] VITALS: BP 122/73
[2019-10-09] MEDS: RisperiDONE 2 MG TABLET PO SCH (20:47)
[2019-10-09] MEDS: ZOLPIDEM TARTRATE 10 MG TABLET PO PRN (20:57)
[2019-10-10] MEDS: LORazepam 2 MG TABLET PO PRN ×3 (06:18→15:55)
[2019-10-10] MEDS: HALOPERIDOL 5 MG TABLET PO PRN ×2 (06:18→10:23)
[2019-10-10] MEDS: NAPROXEN 500 MG TABLET PO SCH ×2 (06:45→17:00)
[2019-10-10] MEDS: MULTIVITAMINS WITH IRON TABLET PO SCH (08:22)
[2019-10-10] MEDS: RisperiDONE 2 MG TABLET PO SCH ×2 (08:23→21:28)
[2019-10-10] MEDS: FLUoxetine HCL 20 MG CAPSULE PO SCH (08:23)
[2019-10-10] MEDS: DIVALPROEX SODIUM 500 MG DR TABLET PO SCH ×3 (08:23→15:55)
[2019-10-10 09:53] VITALS: BP 103/55
[2019-10-10 18:18] VITALS: BP 123/71
[2019-10-10] MEDS: ZOLPIDEM TARTRATE 10 MG TABLET PO PRN (21:33)
[2019-10-11 04:30] VITALS: BP 122/86
[2019-10-11] MEDS: ACETAMINOPHEN 325 MG TABLET PO PRN (04:35)
[2019-10-11] MEDS: LORazepam 2 MG TABLET PO PRN ×3 (04:35→13:00)
[2019-10-11] MEDS: NAPROXEN 500 MG TABLET PO SCH ×2 (06:56→17:06)
[2019-10-11] MEDS: RisperiDONE 2 MG TABLET PO SCH ×2 (08:48→20:52)
[2019-10-11] MEDS: DIVALPROEX SODIUM 500 MG DR TABLET PO SCH ×3 (08:48→17:06)
[2019-10-11] MEDS: FLUoxetine HCL 20 MG CAPSULE PO SCH (08:48)
[2019-10-11] MEDS: HALOPERIDOL 5 MG TABLET PO PRN ×3 (08:51→17:06)
[2019-10-11 09:48] VITALS: BP 124/80
[2019-10-11] MEDS: MULTIVITAMINS WITH IRON TABLET PO SCH (14:09)
[2019-10-11 17:07] VITALS: BP 128/81
[2019-10-11] MEDS: ZOLPIDEM TARTRATE 10 MG TABLET PO PRN (20:52)
[2019-10-12 04:20] VITALS: BP 101/74
[2019-10-12] MEDS: LORazepam 2 MG TABLET PO PRN ×4 (04:20→16:48)
[2019-10-12] MEDS: NAPROXEN 500 MG TABLET PO SCH ×2 (06:59→16:12)
[2019-10-12] MEDS: MULTIVITAMINS WITH IRON TABLET PO SCH (08:04)
[2019-10-12] MEDS: DIVALPROEX SODIUM 500 MG DR TABLET PO SCH ×3 (08:04→16:13)
[2019-10-12] MEDS: FLUoxetine HCL 20 MG CAPSULE PO SCH (08:04)
[2019-10-12] MEDS: RisperiDONE 2 MG TABLET PO SCH ×2 (08:05→20:44)
[2019-10-12] MEDS: HALOPERIDOL 5 MG TABLET PO PRN ×3 (08:35→23:39)
[2019-10-12 08:38] VITALS: BP 100/52
[2019-10-12] MEDS: ACETAMINOPHEN 325 MG TABLET PO PRN ×2 (08:38→23:39)
[2019-10-12 19:13] VITALS: BP 115/70
[2019-10-12] MEDS: ZOLPIDEM TARTRATE 10 MG TABLET PO PRN (20:48)
[2019-10-12 23:41] VITALS: BP 125/74
[2019-10-13] MEDS: LORazepam 2 MG TABLET PO PRN ×4 (04:31→20:12)
[2019-10-13] MEDS: NAPROXEN 500 MG TABLET PO SCH ×2 (07:00→16:32)
[2019-10-13] MEDS: MULTIVITAMINS WITH IRON TABLET PO SCH (07:00)
[2019-10-13 08:50] VITALS: BP 135/81
[2019-10-13] MEDS: DIVALPROEX SODIUM 500 MG DR TABLET PO SCH ×3 (08:50→16:32)
[2019-10-13] MEDS: RisperiDONE 2 MG TABLET PO SCH ×2 (08:50→20:12)
[2019-10-13] MEDS: FLUoxetine HCL 20 MG CAPSULE PO SCH (08:51)
[2019-10-13] MEDS: HALOPERIDOL 5 MG TABLET PO PRN ×2 (08:53→13:34)
[2019-10-13] MEDS: ACETAMINOPHEN 325 MG TABLET PO PRN (08:53)
[2019-10-13 16:23] VITALS: BP 120/71
[2019-10-14] MEDS: ACETAMINOPHEN 325 MG TABLET PO PRN (00:49)
[2019-10-14] MEDS: HALOPERIDOL 5 MG TABLET PO PRN ×4 (00:50→17:56)
[2019-10-14 00:52] VITALS: BP 118/83
[2019-10-14] MEDS: LORazepam 2 MG TABLET PO PRN ×4 (05:27→17:56)
[2019-10-14] MEDS: MULTIVITAMINS WITH IRON TABLET PO SCH (07:06)
[2019-10-14] MEDS: NAPROXEN 500 MG TABLET PO SCH ×2 (07:07→17:20)
[2019-10-14] MEDS: DIVALPROEX SODIUM 500 MG DR TABLET PO SCH ×3 (08:30→17:19)
[2019-10-14] MEDS: FLUoxetine HCL 20 MG CAPSULE PO SCH (08:30)
[2019-10-14] MEDS: RisperiDONE 2 MG TABLET PO SCH ×2 (08:30→21:22)
[2019-10-14 08:54] VITALS: BP 100/67
[2019-10-14 18:58] VITALS: BP 121/74
[2019-10-14] MEDS: ZOLPIDEM TARTRATE 10 MG TABLET PO PRN (21:22)
[2019-10-15 04:52] VITALS: BP 130/80
[2019-10-15] MEDS: ACETAMINOPHEN 325 MG TABLET PO PRN ×2 (04:53→14:01)
[2019-10-15] MEDS: HALOPERIDOL 5 MG TABLET PO PRN ×2 (04:53→18:07)
[2019-10-15] MEDS: LORazepam 2 MG TABLET PO PRN ×4 (05:31→18:08)
[2019-10-15] MEDS: MULTIVITAMINS WITH IRON TABLET PO SCH (06:56)
[2019-10-15] MEDS: NAPROXEN 500 MG TABLET PO SCH ×2 (06:56→16:57)
[2019-10-15] MEDS: RisperiDONE 2 MG TABLET PO SCH ×2 (08:32→21:28)
[2019-10-15] MEDS: FLUoxetine HCL 20 MG CAPSULE PO SCH (08:32)
[2019-10-15] MEDS: DIVALPROEX SODIUM 500 MG DR TABLET PO SCH ×3 (08:32→16:57)
[2019-10-15 09:50] VITALS: BP 102/60
[2019-10-15 14:01] VITALS: BP 108/83
[2019-10-15 16:57] VITALS: BP 112/83
[2019-10-16 05:15] VITALS: BP 114/83
[2019-10-16] MEDS: HALOPERIDOL 5 MG TABLET PO PRN ×2 (05:17→12:35)
[2019-10-16] MEDS: ACETAMINOPHEN 325 MG TABLET PO PRN ×2 (05:18→12:35)
[2019-10-16 05:45] VITALS: BP 114/83
[2019-10-16] MEDS: NAPROXEN 500 MG TABLET PO SCH ×2 (07:02→16:37)
[2019-10-16] MEDS: MULTIVITAMINS WITH IRON TABLET PO SCH (07:02)
[2019-10-16 08:48] VITALS: BP 128/75
[2019-10-16] MEDS: FLUoxetine HCL 20 MG CAPSULE PO SCH (09:37)
[2019-10-16] MEDS: DIVALPROEX SODIUM 500 MG DR TABLET PO SCH ×3 (09:38→16:37)
[2019-10-16] MEDS: RisperiDONE 2 MG TABLET PO SCH ×2 (09:38→20:14)
[2019-10-16 12:35] VITALS: BP 118/76
[2019-10-16 17:21] VITALS: BP 127/74
[2019-10-16] MEDS: ZOLPIDEM TARTRATE 10 MG TABLET PO PRN (20:17)
[2019-10-17] MEDS: NAPROXEN 500 MG TABLET PO SCH ×2 (06:49→16:32)
[2019-10-17] MEDS: FLUoxetine HCL 20 MG CAPSULE PO SCH (08:02)
[2019-10-17] MEDS: DIVALPROEX SODIUM 500 MG DR TABLET PO SCH ×3 (08:02→16:32)
[2019-10-17] MEDS: MULTIVITAMINS WITH IRON TABLET PO SCH (08:04)
[2019-10-17] MEDS: HALOPERIDOL 5 MG TABLET PO PRN ×3 (08:04→16:19)
[2019-10-17] MEDS: ACETAMINOPHEN 325 MG TABLET PO PRN ×3 (08:05→18:54)
[2019-10-17] MEDS: RisperiDONE 2 MG TABLET PO SCH ×2 (08:05→20:56)
[2019-10-17 08:51] VITALS: BP 124/87
[2019-10-17 18:54] VITALS: BP 131/77
[2019-10-17 19:40] VITALS: BP 131/77
[2019-10-17] MEDS: ZOLPIDEM TARTRATE 10 MG TABLET PO PRN (20:56)
[2019-10-18] MEDS: NAPROXEN 500 MG TABLET PO SCH (06:44)
[2019-10-18 07:21] VITALS: BP 105/87
[2019-10-18] MEDS: ACETAMINOPHEN 325 MG TABLET PO PRN ×2 (07:25→11:36)
[2019-10-18] MEDS: DIVALPROEX SODIUM 500 MG DR TABLET PO SCH ×2 (08:13→12:47)
[2019-10-18] MEDS: FLUoxetine HCL 20 MG CAPSULE PO SCH (08:13)
[2019-10-18] MEDS: MULTIVITAMINS WITH IRON TABLET PO SCH (08:15)
[2019-10-18] MEDS: RisperiDONE 2 MG TABLET PO SCH (08:15)
[2019-10-18 08:49] VITALS: BP 125/75
[2019-10-18] MEDS: HALOPERIDOL 5 MG TABLET PO PRN (11:36)
[2019-10-18] MEDS ORDERED: DIVA250T4 PO (14:40)
[2019-10-18] MEDS ORDERED: MULT-1239 PO (14:40)
== END 2019-10-18 17:00 | disposition home or self-care (01) | DRG 885 ==
LOC: EMS 14:26 → 3EI 17:17
PROVIDERS: ADMIT Psychiatry & Neurology Psychiatry; ATTEND Psychiatry & Neurology Psychiatry
DX: F25.9 Schizoaffective disorder, unspecified (principal); R45.851 Suicidal ideations; F41.9 Anxiety disorder, unspecified; G47.00 Insomnia, unspecified; K59.00 Constipation, unspecified; Z96.649 Presence of unspecified artificial hip joint; D64.9 Anemia, unspecified; M19.90 Unspecified osteoarthritis, unspecified site; F12.90 Cannabis use, unspecified, uncomplicated; F17.210 Nicotine dependence, cigarettes, uncomplicated; F32.9 Major depressive disorder, single episode, unspecified; Z79.899 Other long term (current) drug therapy; Z85.46 Personal history of malignant neoplasm of prostate; Z88.8 Allergy status to other drugs, medicaments and biological substances; Z88.0 Allergy status to penicillin
CPT/HCPCS: 83036; 84439; 84443; G0480; J3535

== ENCOUNTER 2019-10-31 13:08 | Inpatient (IN) | payer MEDICAID ==
[~2019-10-31] VITALS: Ht 175.3 cm; Wt 139.0 kg
[~2019-10-31 13:08] MED LIST changes: -DIVA-78 PO; +DIVA250T4 PO; -GABA-531 PO; +MULT-1239 PO; +NAPR-1025 PO
[2019-10-31 14:12] LABS: BASOPHILS % (AUTO) 0.2 % (0.0-2.0); EOSINOPHILS % (AUTO) 0.2 % (1.0-6.0); HEMATOCRIT 37.6 % (41-53); HEMOGLOBIN 12.1 g/dL (13.5-17.5); LYMPHOCYTES # (AUTO) 1.8 K/uL (1.0-4.8); LYMPHOCYTES % (AUTO) 16.1 % (22.0-44.0); MEAN CORPUSCULAR HEMOGLOBIN 29.4 pg (26.0-34.0); MEAN CORPUSCULAR HGB CONC 32.2 G/dL (31.0-37.0); MEAN CORPUSCULAR VOLUME 91 fL (80-100); MONOCYTES # (AUTO) 0.4 K/uL (0.1-1.0); NEUTROPHILS % (AUTO) 79.5 % (40.0-70.0); PLATELET COUNT (AUTO) 398 K/uL (150-450); RED BLOOD CELL COUNT(AUTO) 4.12 MIL/uL (4.50-5.90); RED CELL DISTRIBUTION WIDTH 15.4 % (11.5-14.5)
[2019-10-31 14:36] LABS: ANION GAP 5 mmol/L (8-16); CALCIUM, TOTAL 8.5 mg/dL (8.8-10.5); CARBON DIOXIDE 32 mmol/L (22-29); CHLORIDE 106 mmol/L (98-107); CREATININE 0.67 mg/dL (0.60-1.30); GLOMERULAR FILTR. RATE CALC > 60 mL/min (>60); GLUCOSE,RANDOM 109 mg/dL (70-110); POTASSIUM 4.2 mmol/L (3.5-5.1); SODIUM SERUM 143 mmol/L (136-145); UREA NITROGEN, BLOOD 12 mg/dL (7-18)
[2019-10-31 14:39] LABS: ALANINE AMINOTRANSFERASE 11 U/L (12-78); ALBUMIN 3.3 g/dL (3.4-5.0); ALKALINE PHOSPHATASE 65 U/L (46-116); ASPARTATE AMINOTRANSFERASE 14 U/L (15-37); BILIRUBIN,TOTAL 0.3 mg/dL (0.1-1.0); TOTAL PROTEIN, SERUM 6.2 g/dL (6.4-8.2)
[2019-10-31 19:18] LABS: AMPHET/METH SCREEN,URINE NEGATIVE (NEGATIVE); BARBITURATE SCREEN, URINE NEGATIVE (NEGATIVE); BENZODIAZEPINES SCREEN,URINE NEGATIVE (NEGATIVE); CANNABINOID SCREEN,URINE POSITIVE (NEGATIVE); COCAINE SCREEN,URINE NEGATIVE (NEGATIVE); METHADONE SCREEN, URINE NEGATIVE (NEGATIVE); OPIATE SCREEN,URINE NEGATIVE (NEGATIVE)
[2019-10-31 19:29] LABS: PHENCYCLIDINE SCREEN,URINE NEGATIVE (NEGATIVE)
[2019-10-31 20:10] LABS: VALPROIC ACID 35 mcg/mL (50-100)
[2019-11-01] MEDS: LORazepam 2 MG TABLET PO PRN ×2 (01:39→05:51)
[2019-11-01] MEDS: ZOLPIDEM TARTRATE 10 MG TABLET PO PRN (01:39)
[2019-11-01 04:31] VITALS: BP 151/98
[2019-11-01] MEDS: HALOPERIDOL 5 MG TABLET PO PRN ×2 (05:51→15:54)
[2019-11-01] MEDS ORDERED: BENZOCAINE/MENTHOL LOZENGE MM PRN (08:30)
[2019-11-01] MEDS ORDERED: ONDANSETRON HCL 4 MG TABLET PO PRN (08:30)
[2019-11-01] MEDS ORDERED: MAGNESIUM HYDROXIDE SUSPENSION 30 ML UDCUP PO PRN (08:30)
[2019-11-01] MEDS ORDERED: ALBUTEROL SULFATE HFA 90 MCG/PUFF 8 GM INHALER IH PRN (08:30)
[2019-11-01] MEDS ORDERED: PETROLATUM,WHITE 28 GM JELLY TP PRN (08:30)
[2019-11-01] MEDS ORDERED: LOPERAMIDE HCL 2 MG CAPSULE PO PRN (08:30)
[2019-11-01] MEDS ORDERED: CloNIDine HCL 0.1 MG TABLET PO PRN (08:30)
[2019-11-01] MEDS ORDERED: BACITRACIN 28.4 GM OINTMENT TP PRN (08:30)
[2019-11-01] MEDS ORDERED: MAG HYDROX/AL HYDROX/SIMETH ES 30 ML SUSPENSION UDCUP PO PRN (08:30)
[2019-11-01 08:55] VITALS: BP 138/82
[2019-11-01] MEDS: DOCUSATE SODIUM 100 MG CAPSULE PO SCH (10:55)
[2019-11-01] MEDS: OMEPRAZOLE 20 MG CAPSULE PO SCH (10:55)
[2019-11-01] MEDS ORDERED: RISP2 PO (13:40)
[2019-11-01] MEDS ORDERED: DIVA-78 PO (13:40)
[2019-11-01] MEDS: RisperiDONE 2 MG TABLET PO SCH ×2 (14:24→20:25)
[2019-11-01] MEDS: FLUoxetine HCL 20 MG CAPSULE PO SCH (14:25)
[2019-11-01] MEDS: LORazepam 1 MG TABLET PO PRN (15:54)
[2019-11-01] MEDS: DIVALPROEX SODIUM 500 MG DR TABLET PO SCH (15:56)
[2019-11-01 16:58] VITALS: BP 121/87
[2019-11-02] MEDS: LORazepam 1 MG TABLET PO PRN ×3 (06:16→16:16)
[2019-11-02] MEDS: HALOPERIDOL 5 MG TABLET PO PRN ×2 (06:17→12:04)
[2019-11-02] MEDS: MULTIVITAMINS WITH MINERALS, THERAPEUTIC TABLET PO SCH (07:22)
[2019-11-02 08:15] LABS: CHOL/HDL RATIO 2.1 (4.2-7.3)
[2019-11-02 08:24] VITALS: BP 115/84
[2019-11-02] MEDS: DOCUSATE SODIUM 100 MG CAPSULE PO SCH (09:22)
[2019-11-02] MEDS: DIVALPROEX SODIUM 500 MG DR TABLET PO SCH ×3 (09:22→16:16)
[2019-11-02] MEDS: RisperiDONE 2 MG TABLET PO SCH ×2 (09:23→20:59)
[2019-11-02] MEDS: OMEPRAZOLE 20 MG CAPSULE PO SCH (09:23)
[2019-11-02] MEDS: FLUoxetine HCL 20 MG CAPSULE PO SCH (09:23)
[2019-11-02 16:30] VITALS: BP 112/71
[2019-11-02] MEDS: ZOLPIDEM TARTRATE 10 MG TABLET PO PRN (21:06)
[2019-11-03] MEDS: LORazepam 1 MG TABLET PO PRN ×3 (06:41→15:08)
[2019-11-03 06:55] VITALS: BP 127/81
[2019-11-03] MEDS: MULTIVITAMINS WITH MINERALS, THERAPEUTIC TABLET PO SCH (07:09)
[2019-11-03] MEDS: RisperiDONE 2 MG TABLET PO SCH (09:20)
[2019-11-03] MEDS: OMEPRAZOLE 20 MG CAPSULE PO SCH (09:20)
[2019-11-03] MEDS: DOCUSATE SODIUM 100 MG CAPSULE PO SCH (09:20)
[2019-11-03] MEDS: DIVALPROEX SODIUM 500 MG DR TABLET PO SCH ×3 (09:20→17:03)
[2019-11-03] MEDS: FLUoxetine HCL 20 MG CAPSULE PO SCH (09:20)
[2019-11-03 09:44] VITALS: BP 128/88
[2019-11-03] MEDS: HALOPERIDOL 5 MG TABLET PO PRN ×2 (11:04→15:08)
[2019-11-03] MEDS: ACETAMINOPHEN 325 MG TABLET PO PRN (17:03)
[2019-11-03 17:52] VITALS: BP 111/60
[2019-11-03] MEDS: RisperiDONE 3 MG TABLET PO SCH (20:54)
[2019-11-03] MEDS: ZOLPIDEM TARTRATE 10 MG TABLET PO PRN (21:24)
[2019-11-04] MEDS: HALOPERIDOL 5 MG TABLET PO PRN ×3 (05:20→13:53)
[2019-11-04] MEDS: LORazepam 1 MG TABLET PO PRN ×3 (05:20→13:53)
[2019-11-04 05:38] VITALS: BP 113/78
[2019-11-04 08:57] VITALS: BP 109/69
[2019-11-04] MEDS: MULTIVITAMINS WITH MINERALS, THERAPEUTIC TABLET PO SCH (09:36)
[2019-11-04] MEDS: FLUoxetine HCL 20 MG CAPSULE PO SCH (09:36)
[2019-11-04] MEDS: OMEPRAZOLE 20 MG CAPSULE PO SCH (09:36)
[2019-11-04] MEDS: DOCUSATE SODIUM 100 MG CAPSULE PO SCH (09:36)
[2019-11-04] MEDS: RisperiDONE 3 MG TABLET PO SCH ×2 (09:36→20:59)
[2019-11-04] MEDS: DIVALPROEX SODIUM 500 MG DR TABLET PO SCH ×3 (09:36→16:06)
[2019-11-04 16:05] VITALS: BP 130/85
[2019-11-04] MEDS: ACETAMINOPHEN 325 MG TABLET PO PRN (16:05)
[2019-11-04 16:55] VITALS: BP 130/85
[2019-11-04] MEDS: ZOLPIDEM TARTRATE 10 MG TABLET PO PRN (21:02)
[2019-11-05 05:27] VITALS: BP 128/79
[2019-11-05] MEDS: HALOPERIDOL 5 MG TABLET PO PRN ×3 (05:28→13:31)
[2019-11-05] MEDS: ACETAMINOPHEN 325 MG TABLET PO PRN ×3 (05:28→13:31)
[2019-11-05] MEDS: LORazepam 1 MG TABLET PO PRN ×3 (05:28→13:31)
[2019-11-05] MEDS: FLUoxetine HCL 20 MG CAPSULE PO SCH (08:28)
[2019-11-05] MEDS: DOCUSATE SODIUM 100 MG CAPSULE PO SCH (08:28)
[2019-11-05] MEDS: RisperiDONE 3 MG TABLET PO SCH ×2 (08:28→21:07)
[2019-11-05] MEDS: DIVALPROEX SODIUM 500 MG DR TABLET PO SCH ×3 (08:28→17:07)
[2019-11-05] MEDS: OMEPRAZOLE 20 MG CAPSULE PO SCH (08:29)
[2019-11-05] MEDS: MULTIVITAMINS WITH MINERALS, THERAPEUTIC TABLET PO SCH (08:29)
[2019-11-05 09:30] VITALS: BP 116/70
[2019-11-05 18:36] VITALS: BP 114/65
[2019-11-05] MEDS: ZOLPIDEM TARTRATE 10 MG TABLET PO PRN (21:07)
[2019-11-06 06:25] VITALS: BP 119/94
[2019-11-06] MEDS: LORazepam 1 MG TABLET PO PRN ×3 (06:26→16:14)
[2019-11-06] MEDS: HALOPERIDOL 5 MG TABLET PO PRN ×3 (06:28→16:14)
[2019-11-06] MEDS: ACETAMINOPHEN 325 MG TABLET PO PRN ×3 (06:28→16:14)
[2019-11-06] MEDS: MULTIVITAMINS WITH MINERALS, THERAPEUTIC TABLET PO SCH (07:06)
[2019-11-06] MEDS: DOCUSATE SODIUM 100 MG CAPSULE PO SCH (08:59)
[2019-11-06] MEDS: OMEPRAZOLE 20 MG CAPSULE PO SCH (08:59)
[2019-11-06] MEDS: FLUoxetine HCL 20 MG CAPSULE PO SCH (08:59)
[2019-11-06] MEDS: DIVALPROEX SODIUM 500 MG DR TABLET PO SCH ×3 (08:59→16:13)
[2019-11-06] MEDS: RisperiDONE 3 MG TABLET PO SCH ×2 (08:59→20:48)
[2019-11-06 09:37] VITALS: BP 118/72
[2019-11-06 16:30] VITALS: BP 112/76
[2019-11-06] MEDS: ZOLPIDEM TARTRATE 10 MG TABLET PO PRN (20:48)
[2019-11-07 04:27] VITALS: BP 133/70
[2019-11-07] MEDS: HALOPERIDOL 5 MG TABLET PO PRN ×4 (04:30→17:47)
[2019-11-07] MEDS: LORazepam 1 MG TABLET PO PRN ×4 (04:30→17:47)
[2019-11-07] MEDS: ACETAMINOPHEN 325 MG TABLET PO PRN ×4 (04:31→17:47)
[2019-11-07] MEDS: MULTIVITAMINS WITH MINERALS, THERAPEUTIC TABLET PO SCH (07:15)
[2019-11-07 09:00] VITALS: BP 120/66
[2019-11-07] MEDS: DIVALPROEX SODIUM 500 MG DR TABLET PO SCH ×3 (09:05→17:47)
[2019-11-07] MEDS: DOCUSATE SODIUM 100 MG CAPSULE PO SCH (09:05)
[2019-11-07] MEDS: OMEPRAZOLE 20 MG CAPSULE PO SCH (09:05)
[2019-11-07] MEDS: RisperiDONE 3 MG TABLET PO SCH ×2 (09:05→20:27)
[2019-11-07] MEDS: FLUoxetine HCL 20 MG CAPSULE PO SCH (09:06)
[2019-11-07 17:45] VITALS: BP 128/76
[2019-11-07] MEDS: ZOLPIDEM TARTRATE 10 MG TABLET PO PRN (20:27)
[2019-11-08 04:35] VITALS: BP 121/78
[2019-11-08] MEDS: LORazepam 1 MG TABLET PO PRN ×3 (04:41→16:24)
[2019-11-08] MEDS: HALOPERIDOL 5 MG TABLET PO PRN ×3 (04:41→16:24)
[2019-11-08] MEDS: ACETAMINOPHEN 325 MG TABLET PO PRN ×2 (04:41→15:07)
[2019-11-08] MEDS: MULTIVITAMINS WITH MINERALS, THERAPEUTIC TABLET PO SCH (08:30)
[2019-11-08] MEDS: OMEPRAZOLE 20 MG CAPSULE PO SCH (08:30)
[2019-11-08] MEDS: RisperiDONE 3 MG TABLET PO SCH ×2 (08:30→20:39)
[2019-11-08] MEDS: FLUoxetine HCL 20 MG CAPSULE PO SCH (08:31)
[2019-11-08] MEDS: DIVALPROEX SODIUM 500 MG DR TABLET PO SCH ×3 (08:31→16:22)
[2019-11-08] MEDS: DOCUSATE SODIUM 100 MG CAPSULE PO SCH (08:33)
[2019-11-08 11:14] VITALS: BP 132/80
[2019-11-08 15:07] VITALS: BP 136/77
[2019-11-08 18:07] VITALS: BP 144/89
[2019-11-08] MEDS: ZOLPIDEM TARTRATE 10 MG TABLET PO PRN (22:00)
[2019-11-09] MEDS: LORazepam 1 MG TABLET PO PRN ×2 (05:11→09:28)
[2019-11-09] MEDS: HALOPERIDOL 5 MG TABLET PO PRN ×3 (05:11→14:01)
[2019-11-09] MEDS: ACETAMINOPHEN 325 MG TABLET PO PRN ×3 (05:12→14:01)
[2019-11-09 05:14] VITALS: BP 104/80
[2019-11-09] MEDS: MULTIVITAMINS WITH MINERALS, THERAPEUTIC TABLET PO SCH (07:02)
[2019-11-09] MEDS: FLUoxetine HCL 20 MG CAPSULE PO SCH (08:10)
[2019-11-09] MEDS: DIVALPROEX SODIUM 500 MG DR TABLET PO SCH ×2 (08:10→12:08)
[2019-11-09] MEDS: RisperiDONE 3 MG TABLET PO SCH (08:10)
[2019-11-09] MEDS: OMEPRAZOLE 20 MG CAPSULE PO SCH (08:10)
[2019-11-09] MEDS: DOCUSATE SODIUM 100 MG CAPSULE PO SCH (08:10)
[2019-11-09 08:30] VITALS: BP 142/93
[2019-11-09 09:28] VITALS: BP 142/93
[2019-11-09 14:01] VITALS: BP 131/91
[2019-11-09] MEDS ORDERED: DOCU-275 PO (14:57)
[2019-11-09] MEDS ORDERED: OMEP20 PO (14:58)
== END 2019-11-09 16:20 | disposition home or self-care (01) | DRG 885 ==
LOC: EMS 13:09 → 3EI 11-01 01:30
PROVIDERS: ADMIT Psychiatry & Neurology Psychiatry; ATTEND Psychiatry & Neurology Psychiatry
DX: F25.1 Schizoaffective disorder, depressive type (principal); R45.851 Suicidal ideations; F12.90 Cannabis use, unspecified, uncomplicated; F17.200 Nicotine dependence, unspecified, uncomplicated; F41.9 Anxiety disorder, unspecified; M19.90 Unspecified osteoarthritis, unspecified site; G47.00 Insomnia, unspecified; Z96.649 Presence of unspecified artificial hip joint; K59.00 Constipation, unspecified; Z85.46 Personal history of malignant neoplasm of prostate; Z91.5 Personal history of self-harm; Z79.899 Other long term (current) drug therapy
CPT/HCPCS: 87081; G0480

== ENCOUNTER 2020-12-05 08:06 | Emergency (ER) | payer MEDICAID ==
[~2020-12-05] VITALS: Ht 177.8 cm; Wt 68.2 kg
[~2020-12-05 08:06] MED LIST changes: +DIVA-112 PO; -DIVA250T4 PO; +DOCU-275 PO; -NAPR-1025 PO; +OMEP20 PO; -RISP1 PO; +RISP2TAB45 PO
[2020-12-05] MEDS ORDERED: VENL-193 PO (08:13)
[2020-12-05] MEDS ORDERED: CLON-592 PO (08:13)
[2020-12-05] MEDS ORDERED: ARIP400S3 IM (08:13)
[2020-12-05] MEDS ORDERED: HYDROCODONE/ACETAMINOPHEN 5-325 MG TABLET PO ONE (08:30)
[2020-12-05 09:25] VITALS: BP 158/73
== END 2020-12-05 09:42 | disposition home or self-care (01) ==
LOC: EMS 08:41
DX: S46.912A Strain of unspecified muscle, fascia and tendon at shoulder and upper arm level, left arm, initial encounter (principal); F32.9 Major depressive disorder, single episode, unspecified; F20.9 Schizophrenia, unspecified; F17.210 Nicotine dependence, cigarettes, uncomplicated; F12.90 Cannabis use, unspecified, uncomplicated; Z88.1 Allergy status to other antibiotic agents; Z88.0 Allergy status to penicillin; Z88.6 Allergy status to analgesic agent; X58.XXXA Exposure to other specified factors, initial encounter; Y93.89 Activity, other specified; Y92.89 Other specified places as the place of occurrence of the external cause; Y99.8 Other external cause status
CPT/HCPCS: 99283

== ENCOUNTER 2020-12-12 16:08 | Emergency (ER) | payer MEDICAID ==
[~2020-12-12] VITALS: Ht 172.7 cm; Wt 72.7 kg
[~2020-12-12 16:08] MED LIST changes: +ARIP400S3 IM; +CLON-592 PO; -DIVA-112 PO; -DOCU-275 PO; -FLUO-191 PO; -MULT-1239 PO; -OMEP20 PO; -RISP2TAB45 PO; +VENL-193 PO
[2020-12-12 17:39] VITALS: BP 145/94
[2020-12-12] MEDS ORDERED: TraMADol HCL 50 MG TABLET PO ONE (17:45)
[2020-12-12] MEDS ORDERED: VENL-68 PO (17:49)
== END 2020-12-12 17:52 | disposition home or self-care (01) ==
LOC: EMS 16:08
DX: M19.012 Primary osteoarthritis, left shoulder (principal); F32.9 Major depressive disorder, single episode, unspecified; F12.90 Cannabis use, unspecified, uncomplicated; Z87.891 Personal history of nicotine dependence; Z88.1 Allergy status to other antibiotic agents; Z88.0 Allergy status to penicillin; Z88.5 Allergy status to narcotic agent
CPT/HCPCS: 99283

== ENCOUNTER 2021-01-13 15:15 | Emergency (ER) | payer MEDICAID ==
[~2021-01-13] VITALS: Ht 167.6 cm; Wt 79.0 kg
[~2021-01-13 15:15] MED LIST changes: -VENL-193 PO; +VENL-68 PO
[2021-01-13 17:30] VITALS: BP 149/84
== END 2021-01-13 19:02 | disposition home or self-care (01) ==
LOC: EMS 15:15
DX: S60.011A Contusion of right thumb without damage to nail, initial encounter (principal); M19.041 Primary osteoarthritis, right hand; F41.9 Anxiety disorder, unspecified; F32.9 Major depressive disorder, single episode, unspecified; F20.9 Schizophrenia, unspecified; Z87.891 Personal history of nicotine dependence; Z88.1 Allergy status to other antibiotic agents; Z88.0 Allergy status to penicillin; Z88.6 Allergy status to analgesic agent; W23.0XXA Caught, crushed, jammed, or pinched between moving objects, initial encounter; Y93.89 Activity, other specified; Y92.89 Other specified places as the place of occurrence of the external cause; Y99.8 Other external cause status
CPT/HCPCS: 99284; 73130-TC; 73140-TC; Z7502

== ENCOUNTER 2021-02-28 12:00 | Emergency (ER) | payer MEDICAID ==
[~2021-02-28] VITALS: Ht 177.8 cm; Wt 68.2 kg
[2021-02-28] MEDS ORDERED: LIDOCAINE 5% TRANSDERMAL PATCH TD ONE (13:00)
[2021-02-28] MEDS ORDERED: OxyCODONE HCL/ACETAMINOPHEN 5-325 MG TABLET PO ONE (13:00)
[2021-02-28 13:15] VITALS: BP 142/68
== END 2021-02-28 14:09 | disposition home or self-care (01) ==
LOC: EMS 12:03
DX: S46.912A Strain of unspecified muscle, fascia and tendon at shoulder and upper arm level, left arm, initial encounter (principal); W22.8XXA Striking against or struck by other objects, initial encounter; Y93.89 Activity, other specified; Y92.89 Other specified places as the place of occurrence of the external cause; Y99.8 Other external cause status
CPT/HCPCS: 99283

== ENCOUNTER 2021-04-04 11:30 | Emergency (ER) | payer MEDICAID ==
[~2021-04-04] VITALS: Ht 177.8 cm; Wt 70.5 kg
[2021-04-04 11:32] VITALS: BP 153/76
[2021-04-04] MEDS ORDERED: TraMADol HCL 50 MG TABLET PO ONE (12:45)
== END 2021-04-04 13:02 | disposition home or self-care (01) ==
LOC: EMS 11:56
DX: G89.29 Other chronic pain (principal); M25.512 Pain in left shoulder; F41.9 Anxiety disorder, unspecified; F31.9 Bipolar disorder, unspecified; F20.9 Schizophrenia, unspecified; F17.210 Nicotine dependence, cigarettes, uncomplicated; Z88.1 Allergy status to other antibiotic agents; Z88.0 Allergy status to penicillin; Z88.5 Allergy status to narcotic agent
CPT/HCPCS: 99283

== ENCOUNTER 2021-09-30 10:43 | Emergency (ER) | payer MEDICARE, MEDICAID ==
[~2021-09-30] VITALS: Ht 177.8 cm; Wt 70.5 kg
[2021-09-30 10:54] VITALS: BP 128/96
[2021-09-30] MEDS ORDERED: LORazepam 1 MG TABLET PO ONE (11:30)
== END 2021-09-30 12:25 | disposition left against medical advice (07) ==
LOC: EMS 10:46
DX: F41.9 Anxiety disorder, unspecified (principal); F31.9 Bipolar disorder, unspecified; F20.9 Schizophrenia, unspecified; F17.210 Nicotine dependence, cigarettes, uncomplicated; Z88.1 Allergy status to other antibiotic agents; Z88.0 Allergy status to penicillin; Z79.899 Other long term (current) drug therapy
CPT/HCPCS: 99283

== ENCOUNTER 2021-10-13 20:04 | Emergency (ER) | payer MEDICARE, MEDICAID ==
[~2021-10-13] VITALS: Ht 177.8 cm; Wt 62.3 kg
[2021-10-13] MEDS ORDERED: ALPR0.5T8 PO (20:21)
[2021-10-13 22:19] VITALS: BP 136/66
[2021-10-13] MEDS ORDERED: AMOX-429 PO ×2 (22:26→22:36)
[2021-10-13] MEDS ORDERED: OXYC-38 PO (22:28)
[2021-10-13] MEDS ORDERED: PERCT PO (22:30)
== END 2021-10-13 22:52 | disposition home or self-care (01) ==
LOC: EMS 20:09
DX: K04.7 Periapical abscess without sinus (principal); F31.9 Bipolar disorder, unspecified; F20.9 Schizophrenia, unspecified; F41.9 Anxiety disorder, unspecified; F17.210 Nicotine dependence, cigarettes, uncomplicated; Z88.0 Allergy status to penicillin; Z88.1 Allergy status to other antibiotic agents; Z88.8 Allergy status to other drugs, medicaments and biological substances; Z79.899 Other long term (current) drug therapy
CPT/HCPCS: 99281; Z7502

== ENCOUNTER 2022-06-07 18:13 | Emergency (ER) | payer MEDICARE, MEDICAID ==
[~2022-06-07] VITALS: Ht 172.7 cm; Wt 68.2 kg
[~2022-06-07 18:13] MED LIST changes: +ALPR-707 PO; +AMOX-429 PO; +PERCT PO
[2022-06-07 18:17] VITALS: BP 131/78
[2022-06-07] MEDS ORDERED: ALPR0.5T8 PO (18:21)
[2022-06-07] MEDS ORDERED: GABA-1181 PO (22:41)
[2022-06-07] MEDS ORDERED: TraMADol HCL 50 MG TABLET PO ONE (22:45)
[2022-06-07] MEDS ORDERED: ACETAMINOPHEN 500 MG TABLET PO ONE (22:45)
== END 2022-06-08 00:22 | disposition home or self-care (01) ==
LOC: EMS 18:27
DX: S46.012A Strain of muscle(s) and tendon(s) of the rotator cuff of left shoulder, initial encounter (principal); S40.012A Contusion of left shoulder, initial encounter; S20.222A Contusion of left back wall of thorax, initial encounter; F20.9 Schizophrenia, unspecified; F31.9 Bipolar disorder, unspecified; F41.9 Anxiety disorder, unspecified; F17.210 Nicotine dependence, cigarettes, uncomplicated; M19.90 Unspecified osteoarthritis, unspecified site; Y09 Assault by unspecified means; Y93.89 Activity, other specified; Y92.89 Other specified places as the place of occurrence of the external cause; Y99.8 Other external cause status; Z85.46 Personal history of malignant neoplasm of prostate; Z98.890 Other specified postprocedural states; Z88.0 Allergy status to penicillin; Z88.6 Allergy status to analgesic agent
CPT/HCPCS: 99283

== ENCOUNTER 2022-06-21 00:23 | Emergency (ER) | payer MEDICARE, MEDICAID ==
[~2022-06-21] VITALS: Ht 177.8 cm; Wt 54.5 kg
[~2022-06-21 00:23] MED LIST changes: -ALPR-707 PO; +ALPR0.5T8 PO; -AMOX-429 PO; -CLON-592 PO; +GABA-1181 PO; -PERCT PO
[2022-06-21 00:39] VITALS: BP 123/81
[2022-06-21 01:08] LABS: BASOPHILS % (AUTO) 0.5 % (0.0-2.0); EOSINOPHILS % (AUTO) 0.1 % (1.0-6.0); HEMATOCRIT 33.8 % (41-53); LYMPHOCYTES # (AUTO) 1.5 K/uL (1.0-4.8); LYMPHOCYTES % (AUTO) 18.8 % (22.0-44.0); MEAN CORPUSCULAR HGB CONC 32.5 G/dL (31.0-37.0); MEAN CORPUSCULAR VOLUME 92 fL (80-100); MONOCYTES # (AUTO) 0.5 K/uL (0.1-1.0); MONOCYTES % (AUTO) 6.4 % (2.0-9.0); NEUTROPHILS % (AUTO) 74.2 % (40.0-70.0); PLATELET COUNT (AUTO) 354 K/uL (150-450); RED BLOOD CELL COUNT(AUTO) 3.66 MIL/uL (4.50-5.90); RED CELL DISTRIBUTION WIDTH 17.5 % (11.5-14.5)
[2022-06-21 01:14] LABS: ANION GAP 6 mmol/L (8-16); CALCIUM, TOTAL 8.4 mg/dL (8.8-10.5); CARBON DIOXIDE 28 mmol/L (22-29); CHLORIDE 110 mmol/L (98-107); CREATININE 1.18 mg/dL (0.60-1.30); GLUCOSE,RANDOM 99 mg/dL (70-110); POTASSIUM 3.6 mmol/L (3.5-5.1); SODIUM SERUM 144 mmol/L (136-145); UREA NITROGEN, BLOOD 29 mg/dL (7-18)
[2022-06-21 01:20] LABS: ALANINE AMINOTRANSFERASE 27 U/L (12-78); ALBUMIN 2.9 g/dL (3.4-5.0); ALKALINE PHOSPHATASE 63 U/L (46-116); ASPARTATE AMINOTRANSFERASE 38 U/L (15-37); BILIRUBIN,TOTAL 0.6 mg/dL (0.1-1.0); TOTAL PROTEIN, SERUM 5.3 g/dL (6.4-8.2)
[2022-06-21 01:22] LABS: GLOMERULAR FILTR. RATE CALC > 60 mL/min (>60)
[2022-06-21 01:23] LABS: B-TYPE NATRIURETIC PEPTIDE 3060 pg/mL (0-100)
== END 2022-06-21 01:50 ==
LOC: EMS 00:24
DX: S46.912A Strain of unspecified muscle, fascia and tendon at shoulder and upper arm level, left arm, initial encounter (principal); F20.9 Schizophrenia, unspecified; F31.9 Bipolar disorder, unspecified; F41.9 Anxiety disorder, unspecified; F10.20 Alcohol dependence, uncomplicated; F17.210 Nicotine dependence, cigarettes, uncomplicated; I25.10 Atherosclerotic heart disease of native coronary artery without angina pectoris; M19.90 Unspecified osteoarthritis, unspecified site; X58.XXXA Exposure to other specified factors, initial encounter; Y93.89 Activity, other specified; Y92.149 Unspecified place in prison as the place of occurrence of the external cause; Y99.8 Other external cause status; Z85.46 Personal history of malignant neoplasm of prostate; Z88.0 Allergy status to penicillin
CPT/HCPCS: 71045; 80053; 83880; 84484; 85025; 93005; 99285; 36415-L1; 36415-TC

== ENCOUNTER 2023-02-12 11:35 | Emergency (ER) | payer MEDICARE, OTHER ==
[~2023-02-12] VITALS: Ht 180.3 cm; Wt 75.0 kg
[2023-02-12 11:43] VITALS: BP 160/93
[2023-02-12] MEDS ORDERED: ACET-66 PO (12:07)
[2023-02-12] MEDS ORDERED: IBUP-1554 PO (12:07)
== END 2023-02-12 12:27 | disposition home or self-care (01) ==
LOC: EMS 11:45
DX: F25.9 Schizoaffective disorder, unspecified (principal); M13.811 Other specified arthritis, right shoulder; F41.9 Anxiety disorder, unspecified; F31.9 Bipolar disorder, unspecified; I25.2 Old myocardial infarction; Z88.1 Allergy status to other antibiotic agents; Z88.0 Allergy status to penicillin; Z88.5 Allergy status to narcotic agent; Y04.2XXA Assault by strike against or bumped into by another person, initial encounter; Y93.89 Activity, other specified; Y92.89 Other specified places as the place of occurrence of the external cause; Y99.8 Other external cause status
CPT/HCPCS: 99283

== ENCOUNTER 2023-03-06 18:01 | Emergency (ER) | payer MEDICARE, OTHER ==
[~2023-03-06] VITALS: Ht 170.2 cm; Wt 70.5 kg
[~2023-03-06 18:01] MED LIST changes: +ACET-66 PO; -ALPR0.5T8 PO; -ARIP400S3 IM; +ATOR20TA65 PO; +CLON1TAB12 PO; +DIVA500T53 PO; +DULO-114 PO; +FURO20TA4 PO; -GABA-1181 PO; +IBUP-1554 PO; +LORA-997 PO; +LOSA-381 PO; +METO-408 PO; +OLAN15TA36 PO; +OXYC5TAB3 PO; +SACU1TAB PO
[2023-03-06 18:09] VITALS: BP 135/64; PULSE 90; RESP 18; TEMP 98.2
[2023-03-06] MEDS ORDERED: ACET-2247 PO (19:13)
[2023-03-06] MEDS ORDERED: BACL10TA PO (19:13)
[2023-03-06] MEDS ORDERED: BACLOFEN 10 MG TABLET PO ONE (19:15)
[2023-03-06] MEDS ORDERED: TraMADol HCL 50 MG TABLET PO ONE (19:15)
[2023-03-06] MEDS ORDERED: ACETAMINOPHEN 500 MG TABLET PO ONE (19:15)
== END 2023-03-06 20:00 | disposition home or self-care (01) ==
LOC: EMS 18:02
DX: S40.012A Contusion of left shoulder, initial encounter (principal); F11.21 Opioid dependence, in remission; F25.9 Schizoaffective disorder, unspecified; F41.9 Anxiety disorder, unspecified; M19.90 Unspecified osteoarthritis, unspecified site; F31.9 Bipolar disorder, unspecified; F17.210 Nicotine dependence, cigarettes, uncomplicated; Z96.649 Presence of unspecified artificial hip joint; Z98.890 Other specified postprocedural states; Z88.1 Allergy status to other antibiotic agents; Z88.0 Allergy status to penicillin; V03.99XA Pedestrian with other conveyance injured in collision with car, pick-up truck or van, unspecified whether traffic or nontraffic accident, initial encounter; Y93.01 Activity, walking, marching and hiking; Y92.89 Other specified places as the place of occurrence of the external cause; Y99.8 Other external cause status
CPT/HCPCS: 99283

== ENCOUNTER 2023-03-10 09:38 | Emergency (ER) | payer MEDICARE, OTHER ==
[~2023-03-10] VITALS: Ht 180.3 cm; Wt 77.3 kg
[~2023-03-10 09:38] MED LIST changes: +ACET-2247 PO; +BACL10TA PO
[2023-03-10 09:46] VITALS: TEMP 98
[2023-03-10 10:27] LABS: BASOPHILS % (AUTO) 0.4 % (0.0-2.0); EOSINOPHILS % (AUTO) 2.8 % (1.0-6.0); HEMATOCRIT 39.8 % (41-53); LYMPHOCYTES # (AUTO) 1.3 K/uL (1.0-4.8); LYMPHOCYTES % (AUTO) 18.2 % (22.0-44.0); MEAN CORPUSCULAR HEMOGLOBIN 29.6 pg (26.0-34.0); MEAN CORPUSCULAR HGB CONC 32.7 G/dL (31.0-37.0); MEAN CORPUSCULAR VOLUME 91 fL (80-100); MONOCYTES # (AUTO) 0.6 K/uL (0.1-1.0); MONOCYTES % (AUTO) 9.1 % (2.0-9.0); NEUTROPHILS # (AUTO) 4.8 K/uL (1.8-7.7); NEUTROPHILS % (AUTO) 69.5 % (40.0-70.0); PLATELET COUNT (AUTO) 347 K/uL (150-450); RED CELL DISTRIBUTION WIDTH 15.4 % (11.5-14.5)
[2023-03-10 10:37] LABS: ANION GAP 6 mmol/L (8-16); CALCIUM, TOTAL 8.9 mg/dL (8.8-10.5); CARBON DIOXIDE 30 mmol/L (22-29); CHLORIDE 105 mmol/L (98-107); CREATININE 0.87 mg/dL (0.60-1.30); GLOMERULAR FILTR. RATE CALC > 60 mL/min (>60); GLUCOSE,RANDOM 93 mg/dL (70-110); POTASSIUM 4.5 mmol/L (3.5-5.1); SODIUM SERUM 141 mmol/L (136-145)
[2023-03-10 10:52] LABS: B-TYPE NATRIURETIC PEPTIDE 33 pg/mL (0-100)
[2023-03-10 11:02] LABS: ALANINE AMINOTRANSFERASE 6 U/L (12-78); ALBUMIN 2.9 g/dL (3.4-5.0); ALKALINE PHOSPHATASE 67 U/L (46-116); ASPARTATE AMINOTRANSFERASE 17 U/L (15-37); BILIRUBIN,TOTAL 0.2 mg/dL (0.1-1.0); CREATINE KINASE, TOTAL ONLY 161 U/L (39-308); TOTAL PROTEIN, SERUM 6.4 g/dL (6.4-8.2)
[2023-03-10 12:08] VITALS: BP 105/61; PULSE 60; RESP 18
== END 2023-03-10 13:10 | disposition home or self-care (01) ==
LOC: EMS 09:38
DX: R07.9 Chest pain, unspecified (principal); F41.9 Anxiety disorder, unspecified; F31.9 Bipolar disorder, unspecified; F20.9 Schizophrenia, unspecified; I25.2 Old myocardial infarction; F17.210 Nicotine dependence, cigarettes, uncomplicated; Z85.9 Personal history of malignant neoplasm, unspecified; Z88.0 Allergy status to penicillin; Z88.1 Allergy status to other antibiotic agents; Z88.8 Allergy status to other drugs, medicaments and biological substances
CPT/HCPCS: 80053; 82550; 83880; 84484; 85025; 93005; 99284

== ENCOUNTER 2023-03-20 00:41 | Emergency (ER) | payer MEDICARE, OTHER ==
[~2023-03-20] VITALS: Ht 185.4 cm; Wt 77.0 kg
[~2023-03-20 00:41] MED LIST changes: -ACET-2247 PO; -ACET-66 PO; -BACL10TA PO; -CLON1TAB12 PO; +DIVA-112 PO; -DIVA500T53 PO; -DULO-114 PO; +FURO20 PO; -FURO20TA4 PO; -IBUP-1554 PO; -LORA-997 PO; -LOSA-381 PO; -METO-408 PO; +METO25XL PO; -OLAN15TA36 PO; +OLAN7.5T22 PO; -OXYC5TAB3 PO; -VENL-68 PO; +VENL150C4 PO
[2023-03-20 00:46] VITALS: BP 139/89; PULSE 98; RESP 18; TEMP 98.1
[2023-03-20] MEDS ORDERED: HYDROCODONE/ACETAMINOPHEN 5-325 MG TABLET PO ONE (02:30)
[2023-03-21] MEDS ORDERED: OXYC-38 PO (00:39)
== END 2023-03-20 02:49 | disposition home or self-care (01) ==
LOC: EMS 00:42
DX: M25.512 Pain in left shoulder (principal); G89.29 Other chronic pain; F41.9 Anxiety disorder, unspecified; F31.9 Bipolar disorder, unspecified; F20.9 Schizophrenia, unspecified; Z85.9 Personal history of malignant neoplasm, unspecified; I25.2 Old myocardial infarction; F17.210 Nicotine dependence, cigarettes, uncomplicated; Z88.0 Allergy status to penicillin; Z88.1 Allergy status to other antibiotic agents; Z88.8 Allergy status to other drugs, medicaments and biological substances
CPT/HCPCS: 99283

== ENCOUNTER 2023-03-20 20:04 | Emergency (ER) | payer MEDICARE, OTHER ==
[~2023-03-20] VITALS: Ht 180.3 cm; Wt 77.0 kg
[2023-03-20 21:01] VITALS: TEMP 98.4
[2023-03-21 00:15] VITALS: BP 120/62; PULSE 58; RESP 17
[2023-03-21] MEDS: LORazepam 1 MG TABLET PO ONE ×2 (00:25→00:35)
[2023-03-21] MEDS: HYDROCODONE/ACETAMINOPHEN 5-325 MG TABLET PO ONE ×2 (00:25→00:35)
[2023-03-21] MEDS ORDERED: OXYC-38 PO (00:39)
== END 2023-03-21 00:40 | disposition home or self-care (01) ==
LOC: EMS 20:06
DX: G89.29 Other chronic pain (principal); M25.512 Pain in left shoulder; F41.9 Anxiety disorder, unspecified; M19.90 Unspecified osteoarthritis, unspecified site; F31.9 Bipolar disorder, unspecified; F20.9 Schizophrenia, unspecified; F17.210 Nicotine dependence, cigarettes, uncomplicated; Z76.0 Encounter for issue of repeat prescription; Z96.649 Presence of unspecified artificial hip joint; Z98.890 Other specified postprocedural states; Z88.1 Allergy status to other antibiotic agents; Z88.0 Allergy status to penicillin; Z88.8 Allergy status to other drugs, medicaments and biological substances
CPT/HCPCS: 99283

== ENCOUNTER 2023-03-31 21:12 | Emergency (ER) | payer MEDICARE, OTHER ==
[~2023-03-31] VITALS: Ht 177.8 cm; Wt 72.7 kg
[~2023-03-31 21:12] MED LIST changes: +OXYC-38 PO
[2023-03-31 22:48] VITALS: BP 123/69; PULSE 84; RESP 18; TEMP 98.2
[2023-03-31 23:47] LABS: BASOPHILS % (AUTO) 0.9 % (0.0-2.0); HEMATOCRIT 36.2 % (41-53); HEMOGLOBIN 11.9 g/dL (13.5-17.5); LYMPHOCYTES # (AUTO) 1.6 K/uL (1.0-4.8); MEAN CORPUSCULAR HEMOGLOBIN 29.6 pg (26.0-34.0); MEAN CORPUSCULAR HGB CONC 32.9 G/dL (31.0-37.0); MEAN CORPUSCULAR VOLUME 90 fL (80-100); MONOCYTES # (AUTO) 0.8 K/uL (0.1-1.0); MONOCYTES % (AUTO) 9.1 % (2.0-9.0); NEUTROPHILS # (AUTO) 5.9 K/uL (1.8-7.7); PLATELET COUNT (AUTO) 286 K/uL (150-450); RED BLOOD CELL COUNT(AUTO) 4.02 MIL/uL (4.50-5.90); RED CELL DISTRIBUTION WIDTH 15.6 % (11.5-14.5)
[2023-04-01 00:03] LABS: ANION GAP 9 mmol/L (8-16); CALCIUM, TOTAL 8.6 mg/dL (8.8-10.5); CARBON DIOXIDE 28 mmol/L (22-29); CHLORIDE 105 mmol/L (98-107); CREATININE 0.87 mg/dL (0.60-1.30); GLOMERULAR FILTR. RATE CALC > 60 mL/min (>60); GLUCOSE,RANDOM 84 mg/dL (70-110); POTASSIUM 3.7 mmol/L (3.5-5.1); SODIUM SERUM 142 mmol/L (136-145)
[2023-04-01 00:07] LABS: ALANINE AMINOTRANSFERASE 11 U/L (12-78); ALKALINE PHOSPHATASE 67 U/L (46-116); ASPARTATE AMINOTRANSFERASE 20 U/L (15-37); BILIRUBIN,TOTAL 0.4 mg/dL (0.1-1.0)
[2023-04-01] MEDS ORDERED: LORazepam 1 MG TABLET PO ONE (00:30)
[2023-04-01] MEDS ORDERED: OLANZapine 5 MG TABLET PO ONE (00:30)
== END 2023-04-01 03:05 | disposition home or self-care (01) ==
LOC: EMS 21:12
DX: F20.9 Schizophrenia, unspecified (principal); F41.9 Anxiety disorder, unspecified; M19.90 Unspecified osteoarthritis, unspecified site; F31.9 Bipolar disorder, unspecified; F17.210 Nicotine dependence, cigarettes, uncomplicated; Z98.890 Other specified postprocedural states
CPT/HCPCS: 99284; 80053; 85025; G0480

== ENCOUNTER 2023-04-01 18:20 | Emergency (ER) | payer MEDICARE, OTHER | END 2023-04-01 23:13 | disposition left against medical advice (07) | LOC: EMS 18:22 | DX: Z53.21 Procedure and treatment not carried out due to patient leaving prior to being seen by health care provider (principal) | CPT/HCPCS: 99281; Z7502 ==

== ENCOUNTER 2023-04-02 13:37 | Emergency (ER) | payer MEDICARE, OTHER ==
[~2023-04-02] VITALS: Ht 170.2 cm; Wt 72.7 kg
[2023-04-02 13:49] VITALS: TEMP 98.5
[2023-04-02 14:41] LABS: BASOPHILS % (AUTO) 0.6 % (0.0-2.0); EOSINOPHILS % (AUTO) 3.4 % (1.0-6.0); HEMATOCRIT 33.7 % (41-53); LYMPHOCYTES # (AUTO) 1.7 K/uL (1.0-4.8); LYMPHOCYTES % (AUTO) 19.1 % (22.0-44.0); MEAN CORPUSCULAR HEMOGLOBIN 29.9 pg (26.0-34.0); MEAN CORPUSCULAR HGB CONC 32.8 G/dL (31.0-37.0); MEAN CORPUSCULAR VOLUME 91 fL (80-100); MONOCYTES # (AUTO) 0.7 K/uL (0.1-1.0); MONOCYTES % (AUTO) 7.8 % (2.0-9.0); NEUTROPHILS # (AUTO) 6.1 K/uL (1.8-7.7); NEUTROPHILS % (AUTO) 69.1 % (40.0-70.0); PLATELET COUNT (AUTO) 280 K/uL (150-450); RED BLOOD CELL COUNT(AUTO) 3.69 MIL/uL (4.50-5.90)
[2023-04-02 14:50] LABS: ANION GAP 4 mmol/L (8-16); CALCIUM, TOTAL 8.3 mg/dL (8.8-10.5); CARBON DIOXIDE 29 mmol/L (22-29); CHLORIDE 103 mmol/L (98-107); CREATININE 1.15 mg/dL (0.60-1.30); GLOMERULAR FILTR. RATE CALC > 60 mL/min (>60); GLUCOSE,RANDOM 93 mg/dL (70-110); POTASSIUM 3.6 mmol/L (3.5-5.1); SODIUM SERUM 136 mmol/L (136-145)
[2023-04-02 14:56] LABS: ALANINE AMINOTRANSFERASE 8 U/L (12-78); ALBUMIN 3.2 g/dL (3.4-5.0); ALKALINE PHOSPHATASE 63 U/L (46-116); ASPARTATE AMINOTRANSFERASE 21 U/L (15-37); BILIRUBIN,TOTAL 0.6 mg/dL (0.1-1.0); TOTAL PROTEIN, SERUM 5.7 g/dL (6.4-8.2)
[2023-04-02] MEDS ORDERED: ACETAMINOPHEN 500 MG TABLET PO ONE (16:15)
[2023-04-02 17:00] VITALS: BP 124/71; PULSE 78; RESP 17
== END 2023-04-02 17:43 | disposition home or self-care (01) ==
LOC: EMS 13:53
DX: S40.012A Contusion of left shoulder, initial encounter (principal); F20.9 Schizophrenia, unspecified; F41.9 Anxiety disorder, unspecified; M19.90 Unspecified osteoarthritis, unspecified site; F31.9 Bipolar disorder, unspecified; F17.210 Nicotine dependence, cigarettes, uncomplicated; Z96.649 Presence of unspecified artificial hip joint; Z88.1 Allergy status to other antibiotic agents; Z88.0 Allergy status to penicillin; Z88.8 Allergy status to other drugs, medicaments and biological substances; W19.XXXA Unspecified fall, initial encounter; Y93.89 Activity, other specified; Y92.89 Other specified places as the place of occurrence of the external cause; Y99.8 Other external cause status
CPT/HCPCS: 99284; 80053; 80164; 85025; 73030; G0480

== ENCOUNTER 2023-11-10 13:11 | Emergency (ER) | payer MEDICARE, OTHER ==
[~2023-11-10] VITALS: Ht 177.8 cm; Wt 79.5 kg
[~2023-11-10 13:11] MED LIST changes: +ATOR20TA PO; -ATOR20TA65 PO; -OXYC-38 PO; +VENL-68 PO; -VENL150C4 PO
[2023-11-10 15:45] VITALS: TEMP 98.5
[2023-11-10] MEDS: HYDROCODONE/ACETAMINOPHEN 5-325 MG TABLET PO ONE (16:24)
[2023-11-10 16:47] LABS: BASOPHILS % (AUTO) 0.3 % (0.0-2.0); EOSINOPHILS % (AUTO) 2.1 % (1.0-6.0); HEMATOCRIT 40.8 % (41-53); HEMOGLOBIN 13.4 g/dL (13.5-17.5); LYMPHOCYTES % (AUTO) 27.6 % (22.0-44.0); MEAN CORPUSCULAR HEMOGLOBIN 30.6 pg (26.0-34.0); MEAN CORPUSCULAR HGB CONC 32.9 G/dL (31.0-37.0); MEAN CORPUSCULAR VOLUME 93 fL (80-100); MONOCYTES # (AUTO) 0.5 K/uL (0.1-1.0); MONOCYTES % (AUTO) 7.1 % (2.0-9.0); NEUTROPHILS # (AUTO) 4.6 K/uL (1.8-7.7); NEUTROPHILS % (AUTO) 62.9 % (40.0-70.0); PLATELET COUNT (AUTO) 324 K/uL (150-450); RED BLOOD CELL COUNT(AUTO) 4.39 MIL/uL (4.50-5.90); RED CELL DISTRIBUTION WIDTH 15.3 % (11.5-14.5); WHITE BLOOD COUNT (AUTO) 7.4 K/uL (4.5-11.0)
[2023-11-10 16:49] LABS: APPEARANCE,URINE CLEAR (CLEAR); BILIRUBIN,URINE NEGATIVE (NEGATIVE); COLOR,URINE COLORLESS (YELLOW); GLUCOSE, URINE (UA) NEGATIVE (NEGATIVE); KETONES,URINE NEGATIVE (NEGATIVE); LEUKOCYTE ESTERASE ,URINE NEGATIVE (NEGATIVE); NITRATE,URINE NEGATIVE (NEGATIVE); OCCULT BLOOD,URINE NEGATIVE (NEGATIVE); PROTEIN,URINE NEGATIVE (NEGATIVE); SPECIFIC GRAVITIY, URINE 1.007 (1.003-1.030); UROBILINOGEN,URINE <=1.0 mg/dL (<=1.0)
[2023-11-10 16:55] LABS: ALCOHOL, URINE DRUG SCREEN NEGATIVE (NEGATIVE); AMPHET/METH SCREEN,URINE NEGATIVE (NEGATIVE); BARBITURATE SCREEN, URINE NEGATIVE (NEGATIVE); BENZODIAZEPINES SCREEN,URINE NEGATIVE (NEGATIVE); CANNABINOID SCREEN,URINE NEGATIVE (NEGATIVE); COCAINE SCREEN,URINE NEGATIVE (NEGATIVE); METHADONE SCREEN, URINE NEGATIVE (NEGATIVE); OPIATE SCREEN,URINE NEGATIVE (NEGATIVE); PHENCYCLIDINE SCREEN,URINE NEGATIVE (NEGATIVE)
[2023-11-10 16:56] LABS: ANION GAP 9 mmol/L (8-16); CALCIUM, TOTAL 9.4 mg/dL (8.8-10.5); CARBON DIOXIDE 31 mmol/L (22-29); CHLORIDE 103 mmol/L (98-107); GLOMERULAR FILTR. RATE CALC > 60 mL/min (>60); GLUCOSE,RANDOM 124 mg/dL (70-110); POTASSIUM 4.2 mmol/L (3.5-5.1); SODIUM SERUM 143 mmol/L (136-145); UREA NITROGEN, BLOOD 19 mg/dL (7-18)
[2023-11-10 17:03] LABS: ALCOHOL, BLOOD (SERUM) < 3 mg/dL (0-10)
[2023-11-10 17:04] LABS: B-TYPE NATRIURETIC PEPTIDE 194 pg/mL (0-100); TROPONIN I-HIGH SENSITIVITY 7 ng/L (<76)
[2023-11-10 17:08] LABS: ALANINE AMINOTRANSFERASE 20 U/L (12-78); ALBUMIN 3.3 g/dL (3.4-5.0); ALKALINE PHOSPHATASE 62 U/L (46-116); ASPARTATE AMINOTRANSFERASE 40 U/L (15-37); BILIRUBIN,TOTAL 0.1 mg/dL (0.1-1.0); CREATINE KINASE, TOTAL ONLY 778 U/L (39-308); TOTAL PROTEIN, SERUM 6.7 g/dL (6.4-8.2)
[2023-11-10] MEDS: LIDOCAINE 5% TRANSDERMAL PATCH TD ONE (18:16)
[2023-11-10] MEDS: KETOROLAC TROMETHAMINE 30 MG/ML VIAL IM ONE (18:16)
[2023-11-10] MEDS ORDERED: TRAZ-257 PO (18:21)
[2023-11-10] MEDS ORDERED: BUSP15 PO (18:21)
[2023-11-10] MEDS ORDERED: AMLO2.5T29 PO (18:21)
[2023-11-10] MEDS ORDERED: QUET50TA24 PO (18:21)
[2023-11-10] MEDS ORDERED: DIVA-111 PO (18:21)
[2023-11-10] MEDS ORDERED: ALPR0.5T8 PO (18:21)
[2023-11-10] MEDS ORDERED: TRAM-559 PO (18:21)
[2023-11-10] MEDS ORDERED: OLAN10TA74 PO (18:21)
[2023-11-10] MEDS ORDERED: ASPI-1444 PO (18:21)
[2023-11-10] MEDS ORDERED: ALBU18HF12 IH (18:21)
[2023-11-10] MEDS ORDERED: ATOR40TA71 PO (18:21)
[2023-11-10] MEDS ORDERED: OMEP20CA13 PO (18:21)
[2023-11-10 18:59] VITALS: BP 143/77; PULSE 69; RESP 16
== END 2023-11-10 19:48 | disposition short-term general hospital (02) ==
LOC: EMS 13:11
DX: R55 Syncope and collapse (principal); F20.9 Schizophrenia, unspecified; F41.9 Anxiety disorder, unspecified; F32.A Depression, unspecified; I25.2 Old myocardial infarction; F17.210 Nicotine dependence, cigarettes, uncomplicated; Z86.73 Personal history of transient ischemic attack (TIA), and cerebral infarction without residual deficits; Z88.0 Allergy status to penicillin; Z88.1 Allergy status to other antibiotic agents
CPT/HCPCS: 70450; 71045; 72040; 72072; 80053; 80307; 81003; 82550; 83880; 84484; 85025; 93005; 96372; 99285; G0480; J1885; 36415-L1; 36415-TC

== ENCOUNTER 2023-11-26 07:45 | Inpatient (IN) | payer MEDICARE, MEDICAID ==
[~2023-11-26] VITALS: Ht 175.3 cm; Wt 74.8 kg
[~2023-11-26 07:45] MED LIST changes: +AMLO2.5T29 PO; +ASPI-1444 PO; -ATOR20TA PO; +ATOR40TA71 PO; +BUSP15 PO; +DIVA-111 PO; -DIVA-112 PO; +OLAN10TA74 PO; -OLAN7.5T22 PO; +OMEP20CA13 PO; +QUET50TA24 PO; +TRAZ-257 PO
[2023-11-26] MEDS ORDERED: HALOPERIDOL 5 MG TABLET PO PRN (09:30)
[2023-11-26] MEDS ORDERED: LORazepam 2 MG TABLET PO PRN (09:30)
[2023-11-26] MEDS ORDERED: OLAN15TA36 PO (15:55)
[2023-11-26 16:03] VITALS: BP 132/89
[2023-11-26] MEDS: LORazepam 1 MG TABLET PO PRN (16:05)
[2023-11-26 16:20] VITALS: BP 141/73; PULSE 67; TEMP 97.6
[2023-11-26] MEDS ORDERED: ONDANSETRON HCL 4 MG TABLET PO PRN (21:30)
[2023-11-26] MEDS ORDERED: CloNIDine HCL 0.1 MG TABLET PO PRN (21:30)
[2023-11-26] MEDS ORDERED: MAGNESIUM HYDROXIDE SUSPENSION 30 ML UDCUP PO PRN (21:30)
[2023-11-26] MEDS ORDERED: ALBUTEROL SULFATE HFA 90 MCG/PUFF 8 GM INHALER IH PRN (21:30)
[2023-11-26] MEDS ORDERED: OMEPRAZOLE 20 MG CAPSULE PO PRN (21:30)
[2023-11-26] MEDS ORDERED: BENZOCAINE/MENTHOL LOZENGE PO PRN (21:30)
[2023-11-26] MEDS ORDERED: PETROLATUM,WHITE 28 GM JELLY TP PRN (21:30)
[2023-11-26] MEDS ORDERED: LOPERAMIDE HCL 2 MG CAPSULE PO PRN (21:30)
[2023-11-26] MEDS ORDERED: ACETAMINOPHEN 325 MG TABLET PO PRN (21:30)
[2023-11-26] MEDS ORDERED: BACITRACIN 28 GM OINTMENT TP PRN (21:30)
[2023-11-26] MEDS ORDERED: DOCUSATE SODIUM 100 MG CAPSULE PO PRN (21:30)
[2023-11-26] MEDS ORDERED: MAG HYDROX/ALUMINUM HYD/SIMETH ES 30 ML SUSPENSION UDCUP PO PRN (21:30)
[2023-11-26 21:43] VITALS: BP 123/74; PULSE 97; TEMP 97.8
[2023-11-27 05:56] VITALS: BP 137/89; PULSE 96; RESP 17; TEMP 97.6; O2SAT 97
[2023-11-27] MEDS: ATORVASTATIN CALCIUM 40 MG TABLET PO SCH (08:20)
[2023-11-27] MEDS: AmLODIPine BESYLATE 2.5 MG TABLET PO SCH (08:20)
[2023-11-27] MEDS: FUROSEMIDE 20 MG TABLET PO SCH (08:21)
[2023-11-27] MEDS: ASPIRIN 81 MG DR TABLET PO SCH (08:21)
[2023-11-27] MEDS: SACUBITRIL/VALSARTAN 24-26 MG TABLET PO SCH (08:21)
[2023-11-27] MEDS: METOPROLOL SUCCINATE 25 MG ER TABLET PO SCH (08:21)
[2023-11-27 09:57] LABS: BASOPHILS % (AUTO) 0.2 % (0.0-2.0); HEMATOCRIT 39.2 % (41-53); HEMOGLOBIN 13.2 g/dL (13.5-17.5); LYMPHOCYTES # (AUTO) 1.6 K/uL (1.0-4.8); MEAN CORPUSCULAR HEMOGLOBIN 31.2 pg (26.0-34.0); MEAN CORPUSCULAR HGB CONC 33.6 G/dL (31.0-37.0); MEAN CORPUSCULAR VOLUME 93 fL (80-100); MONOCYTES # (AUTO) 0.8 K/uL (0.1-1.0); MONOCYTES % (AUTO) 8.5 % (2.0-9.0); NEUTROPHILS # (AUTO) 6.3 K/uL (1.8-7.7); NEUTROPHILS % (AUTO) 70.3 % (40.0-70.0); PLATELET COUNT (AUTO) 240 K/uL (150-450); RED BLOOD CELL COUNT(AUTO) 4.23 MIL/uL (4.50-5.90); RED CELL DISTRIBUTION WIDTH 16.2 % (11.5-14.5)
[2023-11-27 10:25] LABS: ALANINE AMINOTRANSFERASE 8 U/L (12-78); ALKALINE PHOSPHATASE 57 U/L (46-116); ANION GAP 3 mmol/L (8-16); ASPARTATE AMINOTRANSFERASE 12 U/L (15-37); BILIRUBIN,TOTAL 0.4 mg/dL (0.1-1.0); CARBON DIOXIDE 32 mmol/L (22-29); CHLORIDE 102 mmol/L (98-107); CHOL/HDL RATIO 2.5 (4.2-7.3); CHOLESTEROL 161 mg/dL (131-200); CREATININE 0.89 mg/dL (0.60-1.30); FREE T4 (FREE THYROXINE) 0.74 ng/dL (0.76-1.46); GLOMERULAR FILTR. RATE CALC > 60 mL/min (>60); GLUCOSE,RANDOM 82 mg/dL (70-110); HDL CHOLESTEROL 64 mg/dL (40-60); LDL CHOL (CALC.) 80 mg/dL (0-130); POTASSIUM 4.1 mmol/L (3.5-5.1); SODIUM SERUM 137 mmol/L (136-145); T4 (THYROXINE) 5.4 mcg/dL (4.7-13.3); TOTAL PROTEIN, SERUM 6.3 g/dL (6.4-8.2); TRIGLYCERIDES 87 mg/dL (15-150); UREA NITROGEN, BLOOD 17 mg/dL (7-18)
[2023-11-27 10:44] LABS: CALCIUM, TOTAL 8.7 mg/dL (8.8-10.5); THYROID STIMULATING HORMONE 0.75 uIU/mL (0.36-3.74)
[2023-11-27 11:24] VITALS: BP 126/74; PULSE 63; RESP 18; TEMP 97.9; O2SAT 97
[2023-11-27] MEDS: TraMADol HCL 50 MG TABLET PO PRN (14:27)
[2023-11-27 17:21] VITALS: BP 123/78; PULSE 73; RESP 18; TEMP 97.6; O2SAT 96
[2023-11-27] MEDS: ZOLPIDEM TARTRATE 10 MG TABLET PO PRN (20:52)
[2023-11-27 22:40] VITALS: BP 113/74; PULSE 74; RESP 18; TEMP 98.1; O2SAT 96
[2023-11-28] VITALS (7 sets, daily range): BP systolic 107–150; BP diastolic 58–83; PULSE 72–84; RESP 16–18; TEMP 97.7–98.2; O2SAT 95–98
[2023-11-28] MEDS: OLANZapine 7.5 MG TABLET PO SCH (20:37)
[2023-11-29] VITALS (7 sets, daily range): BP systolic 106–139; BP diastolic 68–79; PULSE 70–89; RESP 16–19; TEMP 97.8–98.2; O2SAT 95–99
[2023-11-29] MEDS: INFLUENZA VIRUS VACCINE QVS 2023-24 (6MO+)/PF 60 MCG/0.5 ML SYRINGE IM. ONE (14:43)
[2023-11-29] MEDS: PNEUMOCOCCAL VACCINE POLYVALENT 0.5 ML SYRINGE [PPSV23] IM. ONE (14:44)
[2023-11-30] VITALS (7 sets, daily range): BP systolic 107–108; BP diastolic 66–77; PULSE 74–80; RESP 16–17; TEMP 97.9; O2SAT 96–99
[2023-11-30 08:42] LABS: APPEARANCE,URINE CLEAR (CLEAR); BILIRUBIN,URINE NEGATIVE (NEGATIVE); COLOR,URINE COLORLESS (YELLOW); GLUCOSE, URINE (UA) NEGATIVE (NEGATIVE); KETONES,URINE NEGATIVE (NEGATIVE); LEUKOCYTE ESTERASE ,URINE NEGATIVE (NEGATIVE); NITRATE,URINE NEGATIVE (NEGATIVE); OCCULT BLOOD,URINE NEGATIVE (NEGATIVE); PROTEIN,URINE NEGATIVE (NEGATIVE); SPECIFIC GRAVITIY, URINE 1.005 (1.003-1.030); UROBILINOGEN,URINE <=1.0 mg/dL (<=1.0)
[2023-11-30 08:46] LABS: ALCOHOL, URINE DRUG SCREEN NEGATIVE (NEGATIVE); AMPHET/METH SCREEN,URINE NEGATIVE (NEGATIVE); BARBITURATE SCREEN, URINE NEGATIVE (NEGATIVE); BENZODIAZEPINES SCREEN,URINE NEGATIVE (NEGATIVE); CANNABINOID SCREEN,URINE NEGATIVE (NEGATIVE); COCAINE SCREEN,URINE NEGATIVE (NEGATIVE); METHADONE SCREEN, URINE NEGATIVE (NEGATIVE); OPIATE SCREEN,URINE NEGATIVE (NEGATIVE); PHENCYCLIDINE SCREEN,URINE NEGATIVE (NEGATIVE)
[2023-12-01] VITALS (12 sets, daily range): BP systolic 117–141; BP diastolic 68–88; PULSE 69–86; RESP 16–18; TEMP 97.2–98; O2SAT 95–98
[2023-12-01] MEDS: IBUPROFEN 600 MG TABLET PO PRN (11:30)
[2023-12-02 03:39] VITALS: BP 106/75; PULSE 96; RESP 18; TEMP 97.5; O2SAT 96
[2023-12-02 05:52] VITALS: BP 111/78; PULSE 88; RESP 17; TEMP 97.6; O2SAT 96
[2023-12-02 08:00] VITALS: BP 116/64; PULSE 70; RESP 15; TEMP 98; O2SAT 99
[2023-12-02 20:13] VITALS: BP 101/73; PULSE 91; RESP 20; TEMP 97.8; O2SAT 94
[2023-12-02 21:34] VITALS: RESP 20; O2SAT 95
[2023-12-03 00:45] VITALS: BP 105/70; PULSE 71; RESP 16; TEMP 97.6; O2SAT 94
[2023-12-03 09:15] VITALS: BP 117/84; PULSE 80; RESP 16; TEMP 97.9; O2SAT 100
[2023-12-03 11:35] VITALS: RESP 18; O2SAT 100
[2023-12-03 12:35] VITALS: RESP 17; O2SAT 100
[2023-12-03 14:54] VITALS: BP 137/91
[2023-12-03 20:06] VITALS: BP 102/73; RESP 18; O2SAT 98
[2023-12-04] VITALS (7 sets, daily range): BP systolic 102–136; BP diastolic 66–82; PULSE 70–103; RESP 16–20; TEMP 97.6–98; O2SAT 96–99
[2023-12-04] MEDS: VENLAFAXINE HCL 150 MG ER CAPSULE PO ONE (08:34)
[2023-12-05 00:42] VITALS: BP 109/67; PULSE 77; RESP 19; TEMP 97.4; O2SAT 95
[2023-12-05 08:18] VITALS: BP 106/70; PULSE 80; RESP 20; TEMP 97.8; O2SAT 97
[2023-12-05 10:26] VITALS: RESP 20; O2SAT 97
[2023-12-05] MEDS ORDERED: VENL-193 PO (12:31)
== END 2023-12-05 14:30 | disposition home or self-care (01) | DRG 885 ==
LOC: B2S 08:08
PROVIDERS: ADMIT Psychiatry & Neurology Psychiatry; ATTEND Psychiatry & Neurology Psychiatry
DX: F25.9 Schizoaffective disorder, unspecified (principal); I11.0 Hypertensive heart disease with heart failure; R45.851 Suicidal ideations; I50.9 Heart failure, unspecified; J44.9 Chronic obstructive pulmonary disease, unspecified; E78.5 Hyperlipidemia, unspecified; K21.9 Gastro-esophageal reflux disease without esophagitis; F41.9 Anxiety disorder, unspecified; G47.00 Insomnia, unspecified; F19.10 Other psychoactive substance abuse, uncomplicated; M54.9 Dorsalgia, unspecified; F10.90 Alcohol use, unspecified, uncomplicated; Z91.148 Patient's other noncompliance with medication regimen for other reason; Z88.8 Allergy status to other drugs, medicaments and biological substances; Z88.0 Allergy status to penicillin; Z79.82 Long term (current) use of aspirin; Z79.899 Other long term (current) drug therapy
CPT/HCPCS: 80053; 80061; 80307; 81003; 84436; 84439; 84443; 85025; 86592; 87081; Q9967

== ENCOUNTER 2025-03-24 16:53 | Inpatient (IN) | payer MEDICARE, MEDICAID ==
[~2025-03-24] VITALS: Ht 177.8 cm; Wt 70.3 kg
[~2025-03-24 16:53] MED LIST changes: -FURO20 PO; +FURO20TA5 PO; -OLAN10TA74 PO; +OLAN15TA98 PO; -TRAZ-257 PO
[2025-03-24 19:02] VITALS: BP 133/86; PULSE 90; RESP 18; TEMP 98.4; O2SAT 95
[2025-03-25 04:31] VITALS: RESP 18
[2025-03-25 08:19] VITALS: BP 124/65; PULSE 75; RESP 18; TEMP 97.7; O2SAT 98
[2025-03-25] MEDS ORDERED: OMEPRAZOLE 20 MG CAPSULE PO PRN (08:45)
[2025-03-25] MEDS ORDERED: MAGNESIUM HYDROXIDE SUSPENSION 30 ML UDCUP PO PRN (08:45)
[2025-03-25] MEDS ORDERED: PETROLATUM,WHITE 28 GM JELLY TP PRN (08:45)
[2025-03-25] MEDS ORDERED: BACITRACIN 28 GM OINTMENT TP PRN (08:45)
[2025-03-25] MEDS ORDERED: ALBUTEROL SULFATE HFA 90 MCG/PUFF 8 GM INHALER IH PRN (08:45)
[2025-03-25] MEDS ORDERED: BENZOCAINE/MENTHOL [CEPACOL] LOZENGE PO PRN (08:45)
[2025-03-25] MEDS ORDERED: DOCUSATE SODIUM 100 MG CAPSULE PO PRN (08:45)
[2025-03-25] MEDS: FUROSEMIDE 20 MG TABLET PO SCH (09:00)
[2025-03-25] MEDS: ASPIRIN 81 MG DR TABLET PO SCH (09:00)
[2025-03-25] MEDS: METOPROLOL SUCCINATE 25 MG ER TABLET PO SCH (09:00)
[2025-03-25] MEDS: ATORVASTATIN CALCIUM 40 MG TABLET PO SCH (09:00)
[2025-03-25] MEDS: PNEUMOCOCCAL VACCINE POLYVALENT 0.5 ML SYRINGE [PPSV23] IM. ONE (09:20)
[2025-03-25] MEDS: SACUBITRIL/VALSARTAN 24-26 MG TABLET PO SCH (13:07)
[2025-03-25 17:10] VITALS: BP 143/90; PULSE 90; RESP 16; O2SAT 98
[2025-03-25] MEDS: ACETAMINOPHEN 325 MG TABLET PO PRN (17:29)
[2025-03-25 20:46] VITALS: RESP 17
[2025-03-26 08:15] VITALS: RESP 16
[2025-03-26 15:54] VITALS: BP 138/99; PULSE 68; RESP 18; O2SAT 98
[2025-03-26 20:15] VITALS: BP 138/80; PULSE 85; RESP 18; TEMP 97.7; O2SAT 98
[2025-03-27 08:15] LABS: PLATELET COUNT (AUTO) 344 K/uL (150-450); RED BLOOD CELL COUNT(AUTO) 5.17 MIL/uL (4.50-5.90); RED CELL DISTRIBUTION WIDTH 15.3 % (11.5-14.5); WHITE BLOOD COUNT (AUTO) 6.9 K/uL (4.5-11.0)
[2025-03-27 08:39] VITALS: BP 130/87; PULSE 76; RESP 18; TEMP 97.7; O2SAT 99
[2025-03-27 08:48] LABS: ASPARTATE AMINOTRANSFERASE 20 U/L (15-37); CALCIUM, TOTAL 8.9 mg/dL (8.8-10.5); CHOL/HDL RATIO 2.1 (4.2-7.3); CREATININE 0.92 mg/dL (0.60-1.30); GLOMERULAR FILTR. RATE CALC > 60 mL/min (>60); GLUCOSE,RANDOM 86 mg/dL (70-110); LDL CHOL (CALC.) 84 mg/dL (0-130); SODIUM SERUM 139 mmol/L (136-145); TOTAL PROTEIN, SERUM 6.7 g/dL (6.4-8.2); UREA NITROGEN, BLOOD 12 mg/dL (7-18)
[2025-03-27 13:40] VITALS: RESP 18
[2025-03-27] MEDS: OxyCODONE HCL/ACETAMINOPHEN 5-325 MG TABLET PO PRN (13:40)
[2025-03-27 14:40] VITALS: RESP 18
[2025-03-27 16:42] VITALS: BP 133/92; PULSE 82; RESP 18
[2025-03-27 19:47] VITALS: BP 116/91; PULSE 99; RESP 18
[2025-03-27 20:12] VITALS: BP 133/92; PULSE 82; RESP 18; TEMP 98.8; O2SAT 97
[2025-03-27] MEDS: ZOLPIDEM TARTRATE 5 MG TABLET PO PRN (23:33)
[2025-03-28] VITALS (10 sets, daily range): BP systolic 109–134; BP diastolic 63–93; PULSE 73–107; RESP 16–18; TEMP 97.5–98.1; O2SAT 97–100
[2025-03-29 12:20] VITALS: RESP 16
[2025-03-29 20:05] VITALS: BP 112/76; PULSE 97; RESP 18; TEMP 97.9
[2025-03-30] VITALS (9 sets, daily range): BP systolic 108–118; BP diastolic 71–82; PULSE 71–100; RESP 17–19; TEMP 97.9–98.4; O2SAT 98–99
[2025-03-31] VITALS (8 sets, daily range): BP systolic 109–122; BP diastolic 69–85; PULSE 82–100; RESP 17–19; TEMP 97.5–98; O2SAT 97–100
[2025-03-31 09:48] LABS: APPEARANCE,URINE CLEAR (CLEAR); GLUCOSE, URINE (UA) NEGATIVE (NEGATIVE); LEUKOCYTE ESTERASE ,URINE NEGATIVE (NEGATIVE); NITRATE,URINE NEGATIVE (NEGATIVE); OCCULT BLOOD,URINE SMALL (NEGATIVE); SPECIFIC GRAVITIY, URINE 1.013 (1.003-1.030)
[2025-04-01] VITALS (7 sets, daily range): BP systolic 113–123; BP diastolic 69–81; PULSE 79–115; RESP 16–18; TEMP 97.5–98.1; O2SAT 96–98
[2025-04-01] MEDS: ONDANSETRON 4 MG TABLET PO PRN (16:04)
[2025-04-02] VITALS (8 sets, daily range): BP systolic 103–131; BP diastolic 71–83; PULSE 63–97; RESP 17–18; TEMP 97.3–98.2; O2SAT 97–99
[2025-04-02] MEDS ORDERED: LORazepam 2 MG/ML VIAL ONE (09:28)
[2025-04-02 09:29] LABS: PH,URINE DRUG SCREEN 7.5 (5.0-8.0)
[2025-04-02 09:33] LABS: AMPHET/METH SCREEN,URINE NEGATIVE (NEGATIVE); BARBITURATE SCREEN, URINE NEGATIVE (NEGATIVE); CANNABINOID SCREEN,URINE NEGATIVE (NEGATIVE); COCAINE SCREEN,URINE NEGATIVE (NEGATIVE); METHADONE SCREEN, URINE NEGATIVE (NEGATIVE)
[2025-04-02 09:34] LABS: ALCOHOL, URINE DRUG SCREEN NEGATIVE (NEGATIVE)
[2025-04-02] MEDS: LORazepam 2 MG/ML VIAL IM ONE (09:52)
[2025-04-03] VITALS (8 sets, daily range): BP systolic 112–120; BP diastolic 71–89; PULSE 70–92; RESP 16–18; TEMP 97.2–98.2; O2SAT 96–100
[2025-04-04 02:48] VITALS: BP 124/88; PULSE 94; RESP 20; TEMP 98; O2SAT 99
[2025-04-04 08:12] VITALS: BP 119/89; PULSE 91; RESP 18; TEMP 98.1; O2SAT 95
[2025-04-04] MEDS: NICOTINE 21 MG/24 HOUR PATCH TD SCH (09:11)
[2025-04-04 12:00] VITALS: RESP 17; O2SAT 99
[2025-04-04 20:05] VITALS: BP 120/87; PULSE 89; RESP 18; TEMP 97.7; O2SAT 98
[2025-04-05] VITALS (8 sets, daily range): BP systolic 100–127; BP diastolic 71–80; PULSE 70–94; RESP 16–20; TEMP 97.3–98; O2SAT 96–98
[2025-04-06 00:05] VITALS: BP 101/95; PULSE 95; RESP 20; O2SAT 99
[2025-04-06 01:15] VITALS: RESP 18
[2025-04-06 05:49] VITALS: BP 123/67; PULSE 90; RESP 20; TEMP 97
[2025-04-06 08:12] VITALS: BP 104/77; PULSE 83; RESP 18; TEMP 97.4; O2SAT 97
[2025-04-06 12:15] VITALS: RESP 17; O2SAT 99
[2025-04-06 20:07] VITALS: BP 108/75; PULSE 97; RESP 16; TEMP 97.8; O2SAT 98
[2025-04-07] VITALS (9 sets, daily range): BP systolic 102–116; BP diastolic 71–89; PULSE 86–103; RESP 16–18; TEMP 97.3–97.8; O2SAT 96–99
[2025-04-08] VITALS (7 sets, daily range): BP systolic 108–119; BP diastolic 69–85; PULSE 69–96; RESP 17–18; TEMP 97.5–98.2; O2SAT 98–99
[2025-04-09 02:48] VITALS: RESP 20
[2025-04-09 03:57] VITALS: RESP 18
[2025-04-09 09:19] VITALS: BP 110/78; PULSE 88; RESP 18; TEMP 97.9; O2SAT 98
[2025-04-09] MEDS: GABAPENTIN 300 MG CAPSULE PO SCH (13:01)
[2025-04-09 20:06] VITALS: BP 110/70; PULSE 75; RESP 16; TEMP 97.4; O2SAT 97
[2025-04-10] VITALS (8 sets, daily range): BP systolic 100–119; BP diastolic 75–89; PULSE 82–110; RESP 17–18; TEMP 97–98; O2SAT 97–100
[2025-04-11] VITALS (7 sets, daily range): BP systolic 101–113; BP diastolic 70–84; PULSE 75–93; RESP 17–20; TEMP 97–98; O2SAT 98–99
[2025-04-12] VITALS (7 sets, daily range): BP systolic 102–136; BP diastolic 56–87; PULSE 18–94; RESP 16–20; TEMP 97.3–98.2; O2SAT 94–100
[2025-04-13] VITALS (8 sets, daily range): BP systolic 104–127; BP diastolic 77–92; PULSE 85–100; RESP 16–18; TEMP 97.5–98.4; O2SAT 98–100
[2025-04-14] VITALS (8 sets, daily range): BP systolic 100–130; BP diastolic 60–79; PULSE 66–94; RESP 17–18; TEMP 97.1–98.2; O2SAT 97–99
[2025-04-15 04:30] VITALS: BP 107/78; PULSE 88; RESP 18; TEMP 98.2
[2025-04-15 05:30] VITALS: RESP 16
[2025-04-15 08:15] VITALS: BP 105/70; PULSE 89; RESP 18; TEMP 97.8; O2SAT 99
[2025-04-15 10:31] VITALS: BP 113/71; PULSE 92; RESP 18; O2SAT 100
[2025-04-15 16:37] VITALS: BP 111/77; PULSE 72; RESP 18; TEMP 97.3; O2SAT 100
[2025-04-15] MEDS: TUBERCULIN, PURIFIED PROTEIN DERIVATIVE 5 TU/0.1 ML SYRINGE ID ONE (17:19)
[2025-04-15 20:23] VITALS: BP 103/83; PULSE 100; RESP 17; TEMP 97.4; O2SAT 100
[2025-04-16 05:22] VITALS: BP 128/83; PULSE 93; RESP 20; TEMP 98; O2SAT 99
[2025-04-16 06:22] VITALS: RESP 18
[2025-04-16 08:56] VITALS: BP 110/75; PULSE 92; RESP 17; TEMP 97.7; O2SAT 97
[2025-04-16 20:01] VITALS: BP 107/71; PULSE 97; RESP 17; TEMP 97.6; O2SAT 95
[2025-04-16 23:40] VITALS: RESP 20
[2025-04-17] VITALS (9 sets, daily range): BP systolic 96–125; BP diastolic 64–76; PULSE 91–97; RESP 18–20; TEMP 97.3–97.6; O2SAT 96–100
[2025-04-18 00:06] VITALS: BP 110/76; PULSE 87; RESP 18; TEMP 98
[2025-04-18 08:30] VITALS: BP 137/72; PULSE 85; RESP 18; TEMP 97.4; O2SAT 100
[2025-04-18 20:17] VITALS: BP 108/70; PULSE 82; RESP 16; TEMP 97.8; O2SAT 100
[2025-04-19 06:58] VITALS: BP 110/75; PULSE 87; RESP 18; TEMP 97.6; O2SAT 98
[2025-04-19 07:02] VITALS: RESP 17; O2SAT 99
[2025-04-19 08:39] VITALS: BP 103/76; PULSE 90; RESP 18; TEMP 97.6; O2SAT 95
[2025-04-19 13:20] VITALS: RESP 18; O2SAT 99
[2025-04-19 19:50] VITALS: BP 112/78; PULSE 89; RESP 18; TEMP 97.4; O2SAT 98
[2025-04-19 20:22] VITALS: BP 106/76; PULSE 88; RESP 18; TEMP 97.6; O2SAT 96
[2025-04-20] VITALS (8 sets, daily range): BP systolic 100–117; BP diastolic 73–90; PULSE 87–90; RESP 16–18; TEMP 97–97.6; O2SAT 97–98
[2025-04-21] VITALS (7 sets, daily range): BP systolic 102–125; BP diastolic 66–86; PULSE 68–97; RESP 17–18; TEMP 96.9–98.7; O2SAT 96–100
[2025-04-21] MEDS: LOPERAMIDE HCL 2 MG CAPSULE PO PRN (20:36)
[2025-04-22] VITALS (8 sets, daily range): BP systolic 11–128; BP diastolic 67–76; PULSE 67–97; RESP 17–18; TEMP 97.5–97.8; O2SAT 96–99
[2025-04-23] VITALS (8 sets, daily range): BP systolic 109–128; BP diastolic 69–84; PULSE 71–82; RESP 16–18; TEMP 96.1–97.7; O2SAT 96–99
[2025-04-23] MEDS: MAG HYDROX/ALUMINUM HYD/SIMETH ES 30 ML SUSPENSION UDCUP PO PRN (20:28)
[2025-04-24] VITALS (9 sets, daily range): BP systolic 102–121; BP diastolic 61–84; PULSE 70–89; RESP 17–20; TEMP 97.4–98.1; O2SAT 95–98
[2025-04-25] VITALS (8 sets, daily range): BP systolic 101–135; BP diastolic 63–85; PULSE 61–72; RESP 16–20; TEMP 97.1–97.3; O2SAT 97–98
[2025-04-26 00:20] VITALS: RESP 18
[2025-04-26 08:53] VITALS: BP 120/80; PULSE 87; RESP 16; TEMP 97.6; O2SAT 98
[2025-04-26 09:48] LABS: PLATELET COUNT (AUTO) 266 K/uL (150-450); RED BLOOD CELL COUNT(AUTO) 4.30 MIL/uL (4.50-5.90); RED CELL DISTRIBUTION WIDTH 14.9 % (11.5-14.5); WHITE BLOOD COUNT (AUTO) 6.1 K/uL (4.5-11.0)
[2025-04-26 10:19] LABS: ASPARTATE AMINOTRANSFERASE 17 U/L (15-37); CALCIUM, TOTAL 8.9 mg/dL (8.8-10.5); CREATININE 1.12 mg/dL (0.60-1.30); GLOMERULAR FILTR. RATE CALC > 60 mL/min (>60); GLUCOSE,RANDOM 68 mg/dL (70-110); PHOSPHORUS 4.5 mg/dL (2.5-4.9); SODIUM SERUM 139 mmol/L (136-145); TOTAL PROTEIN, SERUM 6.1 g/dL (6.4-8.2); UREA NITROGEN, BLOOD 21 mg/dL (7-18)
[2025-04-26 18:24] VITALS: BP 125/74; PULSE 83; RESP 17; TEMP 97.8
[2025-04-26 19:38] VITALS: RESP 18
[2025-04-26 20:24] VITALS: BP 130/81; PULSE 75; RESP 18; TEMP 97.6; O2SAT 98
[2025-04-27] VITALS (10 sets, daily range): BP systolic 99–117; BP diastolic 62–86; PULSE 65–89; RESP 0–20; TEMP 97.4–98; O2SAT 96–97
[2025-04-28] VITALS (7 sets, daily range): BP systolic 104–127; BP diastolic 65–80; PULSE 65–91; RESP 16–18; TEMP 97–97.5; O2SAT 96–99
[2025-04-29 05:05] VITALS: BP 121/86; PULSE 79; RESP 18; TEMP 97.3; O2SAT 97
[2025-04-29 06:15] VITALS: RESP 16
[2025-04-29 08:14] VITALS: BP 102/62; PULSE 67; RESP 17; TEMP 97.6; O2SAT 95
[2025-04-29 11:24] VITALS: BP 118/80; PULSE 66; RESP 17; TEMP 97.5; O2SAT 95
[2025-04-29 12:24] VITALS: RESP 16
[2025-04-29 20:37] VITALS: BP 111/77; PULSE 87; RESP 17; TEMP 97.4; O2SAT 97
[2025-04-30] VITALS (10 sets, daily range): BP systolic 103–120; BP diastolic 68–90; PULSE 78–88; RESP 17–20; TEMP 97.1–98.2; O2SAT 97–99
[2025-05-01] VITALS (10 sets, daily range): BP systolic 108–134; BP diastolic 66–87; PULSE 75–88; RESP 16–18; TEMP 97–97.5; O2SAT 96–98
[2025-05-02 04:48] VITALS: BP 127/82; PULSE 87; RESP 18; TEMP 97.6; O2SAT 97
[2025-05-02 05:45] VITALS: RESP 18
[2025-05-02 10:06] VITALS: BP 102/79; PULSE 91; RESP 18; TEMP 97.7
[2025-05-02 10:51] VITALS: RESP 18
[2025-05-02 20:08] VITALS: BP 106/88; PULSE 100; RESP 17; TEMP 97.3
[2025-05-03] VITALS (7 sets, daily range): BP systolic 102–133; BP diastolic 75–87; PULSE 78–98; RESP 17–18; TEMP 97–98.6; O2SAT 94–98
[2025-05-04 04:10] VITALS: BP 105/80; PULSE 90; RESP 20; TEMP 97.6
[2025-05-04 05:10] VITALS: RESP 18
[2025-05-04 08:17] VITALS: BP 100/61; PULSE 82; RESP 17; TEMP 97.5; O2SAT 96
[2025-05-04 10:20] VITALS: BP 113/69; PULSE 100; RESP 18; TEMP 98
[2025-05-04 11:20] VITALS: RESP 18
[2025-05-04] MEDS ORDERED: GABA-1181 PO (16:18)
[2025-05-04] MEDS ORDERED: TIZA-211 PO (16:18)
[2025-05-04] MEDS ORDERED: OLAN10TA74 PO (16:21)
[2025-05-04] MEDS ORDERED: OXYB5TAB20 PO (16:21)
== END 2025-05-04 16:45 | DRG 885 ==
LOC: B2X 03-25 03:57 → B2S 04-01 10:51 → B3A 04-02 09:38
PROVIDERS: ADMIT Psychiatry & Neurology Psychiatry; ATTEND Psychiatry & Neurology Psychiatry
PROC: GZHZZZZ Group Psychotherapy (ICD-10-PCS; principal; 2025-03-25)
PROC: GZ52ZZZ Individual Psychotherapy, Cognitive (ICD-10-PCS; 2025-04-02)
DX: F25.1 Schizoaffective disorder, depressive type (principal); I11.0 Hypertensive heart disease with heart failure; R45.851 Suicidal ideations; C79.51 Secondary malignant neoplasm of bone; I50.9 Heart failure, unspecified; J44.9 Chronic obstructive pulmonary disease, unspecified; E78.5 Hyperlipidemia, unspecified; C61 Malignant neoplasm of prostate; K21.9 Gastro-esophageal reflux disease without esophagitis; F41.9 Anxiety disorder, unspecified; G47.00 Insomnia, unspecified; F19.10 Other psychoactive substance abuse, uncomplicated; F10.90 Alcohol use, unspecified, uncomplicated; M54.50 Low back pain, unspecified; F90.0 Attention-deficit hyperactivity disorder, predominantly inattentive type; Y90.9 Presence of alcohol in blood, level not specified; F43.12 Post-traumatic stress disorder, chronic; Z86.73 Personal history of transient ischemic attack (TIA), and cerebral infarction without residual deficits; Z88.0 Allergy status to penicillin; Z88.5 Allergy status to narcotic agent; Z88.6 Allergy status to analgesic agent; Z91.148 Patient's other noncompliance with medication regimen for other reason; Z79.899 Other long term (current) drug therapy
CPT/HCPCS: 80053; 80061; 80307; 81001; 83036; 83735; 84100; 84439; 84443; 85025; J1200; J1630; J2060; Q0162

== ENCOUNTER 2025-03-24 20:04 | Emergency (ER) | payer OTHER, MEDICAID ==
[~2025-03-24] VITALS: Ht 177.8 cm; Wt 77.3 kg
[2025-03-24 22:35] VITALS: BP 152/88; PULSE 75; RESP 18; TEMP 98.205296; O2SAT 98
[2025-03-24 22:45] LABS: PLATELET COUNT (AUTO) 323 K/uL (150-450); RED BLOOD CELL COUNT(AUTO) 4.66 MIL/uL (4.50-5.90); RED CELL DISTRIBUTION WIDTH 15.2 % (11.5-14.5); WHITE BLOOD COUNT (AUTO) 8.1 K/uL (4.5-11.0)
[2025-03-24 22:55] LABS: CALCIUM, TOTAL 9.3 mg/dL (8.8-10.5); CREATININE 0.79 mg/dL (0.60-1.30); GLOMERULAR FILTR. RATE CALC > 60 mL/min (>60); GLUCOSE,RANDOM 79 mg/dL (70-110); SODIUM SERUM 143 mmol/L (136-145); UREA NITROGEN, BLOOD 15 mg/dL (7-18)
[2025-03-24 23:27] LABS: COVID AG,FIA SOURCE NASAL SWAB
[2025-03-24 23:53] LABS: SARS-COV2 (COVID) ANTIGEN,FIA Negative (Negative)
[2025-03-25] MEDS: LORazepam 2 MG/ML VIAL IM ONE (03:46)
== END 2025-03-25 04:00 ==
LOC: EMS 20:04
DX: F32.9 Major depressive disorder, single episode, unspecified (principal); R45.851 Suicidal ideations; G89.29 Other chronic pain; M25.512 Pain in left shoulder; F12.90 Cannabis use, unspecified, uncomplicated; F20.9 Schizophrenia, unspecified; F17.210 Nicotine dependence, cigarettes, uncomplicated; Z79.82 Long term (current) use of aspirin; Z88.0 Allergy status to penicillin; Z88.1 Allergy status to other antibiotic agents; Z88.5 Allergy status to narcotic agent; Z88.6 Allergy status to analgesic agent; Z79.899 Other long term (current) drug therapy; Z20.822 Contact with and (suspected) exposure to COVID-19
CPT/HCPCS: 99285; 87426; 80048; 85025; 36415; 96372; G0480; J1200; J1630; J2060